=== PATIENT | female | born 1980 | race Caucasian/White ===

== ENCOUNTER → 2017-10-20 15:17 | Outpatient (CLI) | payer OTHER, MEDICAID, SELFPAY ==
[2017-10-20 16:12] LABS: Add Manual Diff / Slide Review NO; Basophils Percent Auto 0.5 % (0-2); Eosinophils Percent Auto 3.8 % (2-4); Lymphocytes Percent Auto 31.1 % (25-40); Mean Corpuscular HGB Conc 34.2 % (30-36); Mean Corpuscular Hemoglobin 28.3 PG (26-34); Mean Corpuscular Volume 82.9 fL (80-100); Monocytes Percent Auto 6.5 % (3-14); Neutrophils Absolute Auto 4100 /uL (3000-5900); Neutrophils Percent Auto 58.1 % (50-75); Platelet Count 239 X10^3/uL (150-400); Red Blood Cell Count 4.95 X10^6/uL (4.0-5.2); Red Cell Distribution Width 13.6 % (11.6-14.8)
[2017-10-20 16:35] LABS: Alanine Aminotransferase 26 IU/L (9-52); Albumin 4.2 g/dL (3.5-5.0); Albumin Globulin Ratio 1.4 (1.0-2.8); Alkaline Phosphatase 65 U/L (38-126); Aspartate Aminotransferase 15 IU/L (14-36); Bilirubin Total 0.4 mg/dL (0.2-1.3); Calcium 9.9 mg/dL (8.4-10.2); Estimated Glomerular Filt Rate > 60.0 mL/min (>60); Glucose 88 mg/dL (70-100); HEMOLYSIS < 15 (0-50); Lipase 99 U/L (23-300); Potassium 4.3 mmol/L (3.4-5.1); Sodium 145 mmol/L (137-145); Total Protein 7.2 g/dL (6.3-8.2)
--- NOTE | 2017-10-20 17:58 | HP_ITS ---
DATE OF SERVICE: 10/20/2017 CHIEF COMPLAINT: Right upper quadrant abdominal pain and loose watery stool. HISTORY OF PRESENT ILLNESS: A 37-year-old female who presented recently to the emergency department in 06/2017 with severe right upper quadrant abdominal pain of acute onset. She was in her usual state of health at that time at work when she experienced significant pain that was debilitating. Pain was described as sharp and unrelenting. Pain radiated to the right shoulder region. She had no chest pain or shortness of breath otherwise. No abdominal pain elsewhere. No fever or chills. She did have some nausea and vomiting. Evaluation included CT scan as well as abdominal ultrasound which failed to show any significant pathology other than perhaps some mild inflammation around the gallbladder. Nevertheless, there was no biliary dilatation and no gallstones. No free fluid. She has continued to experience intermittent episodes of epigastric pain and right upper quadrant abdominal pain but not quite as intense as the initial event. She notes no exacerbating activities or food. She has otherwise been tolerating a diet relatively well. She has actually lost 10 pounds because she has been following very bland diet over the last month or so related to the watery diarrhea. She denies any melena, hematochezia, or bright red blood per rectum. Her major complaint, however, is the pain that occurs intermittently. She denies any jaundice, acholic stools, or dark brown urine. PAST MEDICAL HISTORY: 1. Morbid obesity. 2. Gastroesophageal reflux disease (GERD) disease. She denies any other chronic major medical illnesses. PAST SURGICAL HISTORY: Emergency section, 12/2015. Postoperative course was complicated by significant wound infections requiring multiple debridements and wound care with eventual healing by secondary intention. She has a resultant incisional hernia. ALLERGIES: 1. PENICILLIN. 2. AMOXICILLIN. 3. MOTRIN. 4. VICODIN WHICH CAUSES NAUSEA. MEDICATIONS: 1. Prilosec 20 mg p.o. q.day. 2. Imodium 1 tablet p.o. q.day p.r.n. She takes his medication approximately 3 times per week. 3. Aleve 1 tablet p.o. p.r.n. She takes this approximately twice per week. SOCIAL HISTORY: Patient is accompanied by her relative. She smokes a half-pack of cigarettes per day and has done so for 25 years. She drinks occasional bare alcoholic beverage. She resides with her mother and boyfriend. She is employed at [employer]. She did have a colonoscopy in 2015 for unrelated gastrointestinal symptoms. FAMILY HISTORY: Significant for heart disease and hypertension as well as gallstones through her grandparents. Her maternal grandfather was diabetic. There is a history of breast cancer and ovarian cancer in her relatives. REVIEW OF SYSTEMS: CONSTITUTIONAL: No fevers, chills, or night sweats. She has had 10-pound weight loss dietary changes as above. SKIN: No itching or lesions. No jaundice. ENT: No dysphagia or hoarseness. RESPIRATORY: No cough or sputum. CARDIOVASCULAR: No chest pain, shortness of breath, or dyspnea. GI: As above in HPI. : No hesitancy, frequency, dysuria, or hematuria. MUSCULOSKELETAL: No joint pain or swelling. NEUROLOGIC: NO dizziness or weakness. PSYCHIATRIC: No history of anxiety or depression. ENDOCRINE: No history of thyroid issues or diabetes. HEMATOLOGIC: Denies easy bruising or spontaneous bleeding. BREASTS: No masses on self-examination. 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 Her most recent menstrual cycle was 10/06/2017. She began menstruating at age 13. PHYSICAL EXAMINATION: GENERAL: Patient is a well-nourished well-developed morbidly obese female in no acute distress. Alert and oriented x3. VITAL SIGNS: Height 5 feet 5 inches. Weight 344 pounds. Temperature 98, heart rate 86, blood pressure 120/88, room air saturation 98%. HEENT: She is normocephalic and atraumatic. Sclerae are nonicteric. NECK: Supple without lymphadenopathy. CHEST: Clear to auscultation bilaterally with a regular rate and rhythm. No wheezes or crackles. No murmurs, gallops, or rubs. No flank tenderness. ABDOMEN: Obese but soft and nondistended. I appreciate no obvious masses, although the examination is limited by her body habitus. She is mildly tender in the right upper quadrant region but without guarding or rebound. No Mayberry sign. No obvious hepatomegaly. EXTREMITIES: Show no clubbing or cyanosis but she has significant obesity of the lower extremities. LABORATORY DATA/X-RAYS: She has no recent laboratory studies for review. I have reviewed her CT scan of her at the abdomen and pelvis as well as the abdominal ultrasound from 06/2017. She is also had a recent CCK/HIDA scan within the last several weeks which I have reviewed also. Findings are essentially as above. The CCK/HIDA scan demonstrated biliary ejection fraction of only 9%. She reports that the CCK injection reproduced her pain. IMPRESSION: A 37-year-old morbidly obese female with symptomatic biliary dyskinesia. I do not believe this is related to her diarrhea but there is a small possibility of such if she does indeed have significant chronic gallbladder inflammation. PLAN: I discussed my impression and findings with the patient and her mother in detail. I recommend laparoscopic cholecystectomy. The technical details of that operation were discussed. Risks including, but not limited to, anesthesia, bleeding, infection, pain, scars, need to convert to open procedure, need for drains, liver injury, gastric injury, small-bowel injury, duodenal injury, colon injury, bile duct injury, major vascular injury, need for major abdominal surgery, and all attendant risks of major surgery were explained at length. We also discussed the possibility that cholecystectomy would not resolve her pain issues and other current symptoms. She may require endoscopic evaluation at that time if there is evidence of sphincter of Oddi dysfunction. I also explained that the diarrhea may not resolve. In fact, she may have post cholecystectomy significant diarrhea. We discussed this in some detail as well. Anticipated healing and recovery times were reviewed. All questions were answered to her satisfaction, and she voiced understanding. Preoperative laboratory studies including CBC, lipase, and complete metabolic panel were ordered. Consent was placed on the chart. We will proceed as above. Merly Gasca - /zeny/ab doc#: [id number]/job#: [id number] dd: 10/20/2017 15:19:00 dt: 10/20/2017 17:24:00 DICTATING /COPIES TO: Jorge Balderas MD; Jw Cardona MD COPIES MNE: JASON GIFFORD
== END ==
PROVIDERS: Family Provider Internal Medicine; PCP Internal Medicine; Visit Provider Surgery
DX: R10.11 Right upper quadrant pain (principal)
CPT/HCPCS: 36415; 80053; 83690; 85025

== ENCOUNTER 2017-11-09 09:10 | Day surgery (SDC) | payer OTHER, MEDICAID, SELFPAY ==
[2017-11-03 09:29] VITALS: BMI 57.3
[2017-11-09] VITALS (18 sets, daily range): BP systolic 102–127; BP diastolic 58–79; PULSE 60–81; RESP 12–18; TEMP 36–36.9; O2SAT 95–100; BMI 57.3
--- NOTE | 2017-11-09 | PATH_ITS ---
[facility] Accession Number: [id number] . 01 Material submitted: . GALLBLADDER AND CONTENTS . 02 Diagnosis: Gallbladder and Contents, Cholecystectomy: Mild chronic cholecystitis. Negative for neoplasm. [facility]/11/12/2017 . 02 Electronically signed: . Venkata Chua MD, PhD, Pathologist NPI- [id number] . 01 Gross description: . Received in formalin, labeled gallbladder and contents, is an intact gallbladder (length-7.6 cm, diameter-3.3 cm) with green smooth and shiny serosa and a patent cystic duct. No lymph nodes are identified. The lumen contains dark green watery bile. No calculi are present. The mucosa is dark green smooth and flat. The wall is up to 0.1 cm thick. No nodules, masses or lesions are identified. Section code: (A1) cystic duct resection margin and two serial sections from the body; (A2) two longitudinal sections from the fundus. ([id number]) . /[facility] . 02 Pathologist provided ICD-10: K82.8, K81.1 . 02 CPT . 843756 Performed at: 01 [facility] [address] [facility], [place], [place] [id number] MD Elgin Saleh MD Phone: [phone] Performed at: [facility] [address] [place], [place] [id number] MD Terell Schaefer MD Phone: [phone]
--- NOTE | 2017-11-09 09:55 | PM.PREOP ---
Pre-operative Note Interval Note Pre-op Check: History & Physical Reviewed by Physician and Exam Performed H&P completed within 30 days and has changed as indicated here:: Patient seen and examined today. History and physical examination as documented on October 20, 2017 remains unchanged. Proceed with laparoscopic cholecystectomy today as planned.
[2017-11-09] MEDS: LACTATED RINGERS 1,000 ML 100 ML IV ×2 (10:08→12:21)
[2017-11-09] MEDS: MIDAZOLAM 2 MG/2 ML VIAL IV (10:13)
--- NOTE | 2017-11-09 10:31 | SUR.PREOP ---
pt was given versed and placed on a pulse ox monitor to monitor pulse ox and heart rate.
[2017-11-09] MEDS: CLINDAMYCIN 900 MG/50 ML PIGGYBACK 50 MG IV (10:47)
--- NOTE | 2017-11-09 11:16 | SUR.OPER ---
Supine on padded OR bed, head on pillow, arms secured on padded arm boards at <90 degrees abduction, legs uncrossed, safety belt at thigh, tape over blanket over lower legs. Foot board. Additional tape over the towels on lower abdomen.
[2017-11-09] MEDS: BUPIVACAINE 0.25% (PF) 30 ML VIAL INJ (11:36)
[2017-11-09] MEDS: LIDOCAINE 1% W/EPI INJ 20 ML INJ (11:37)
--- NOTE | 2017-11-09 12:45 | PM.OP.1 ---
Operative Date/Time/Diagnoses - Date of procedure: 11/09/17 Time of procedure: 12:45 Pre-op diagnosis: Biliary dyskinesia Post-op diagnosis: same Procedure & Clinicians Procedure: Laparoscopic cholecystectomy Same procedure as scheduled: Yes Indications: 37-year-old morbidly obese female who presented with recurrent intractable right upper quadrant abdominal pain. Examination and evaluation were consistent with biliary colic secondary to dyskinesia as confirmed by HIDA scan. Laparoscopic cholecystectomy was recommended. Surgeon: Jorge Balderas Click Yes if Unassisted: Yes Anesthesia Type: General Operative Notes Findings: 1. Moderately enlarged fatty infiltrated liver with some superficial fibrosis 2. Copious adhesions in the lower midline abdomen and pelvis consistent with prior section 3. Chronic adhesions between the omentum and infundibulum of the gallbladder consistent with possible chronic cholecystitis 4. Otherwise grossly normal gallbladder without obvious palpable stones 5. Grossly normal colon, stomach, and small bowel within the limits of laparoscopic visualization Closure Type: primary Specimen(s): other (Gallbladder) Implants & Drains: None Estimated Blood Loss (mL): 25 Blood products transfused: none Procedure in detail: After obtaining informed consent the patient was brought to the operating room placed supine on the table. After satisfactory induction of anesthesia all pressure points were padded appropriately. Footboard was placed on the table for support. Abdomen was prepped and draped in usual sterile fashion. A SCOAP time-out was performed per standard protocol. A 1: 1 mixture of 1% lidocaine with 1 100,000 epinephrine and 0.25% plain Marcaine was injected in the skin and subcutaneous tissue in the supraumbilical midline several inches above the superior aspect of the umbilicus given the patient's body habitus. Local anesthesia was injected for postoperative analgesia. Vertical midline incision was created for distance of approximately 3 cm at the anesthetized skin using a 11. Scalpel blade. Blunt dissection and retraction exposed the rectus fascia which was divided in the midline with a 11. Scalpel blade. Fascial edges was secured with Ray clamps and elevated into the operative field. Two individual 0 Vicryl sutures were then placed superiorly and inferiorly to secure the fascia. Underlying peritoneum was secured between Althea clamps and divided sharply between clamps using Metzenbaum scissors. Under direct visualization a blunt 12 mm Castro trocar was inserted into the abdomen and a carbon dioxide pneumoperitoneum was created. Abdomen was visually explored with a 30 degree 5 mm laparoscopic. Findings are as above. Patient was placed in reverse Trendelenburg position and appropriate position was chosen for placement of a 5 mm epigastric trocar. Area was again anesthetized with local anesthesia and a small skin incision was created with a 11 scalpel blade followed by insertion of the 5 mm trocar. In a similar fashion to individual 5 mm trocars were placed in the right lateral abdomen. Fundus of the gallbladder was secured with a ratcheted grasper and retracted superiorly and medially over the liver edge. However, the patient had extremely enlarged fatty infiltrated liver which made retraction difficult. A Gray grasper was then inserted and the infundibulum of the gallbladder was secured and retracted inferiorly and laterally after blunt dissection of the omental adhesions liberated the gallbladder. Meticulous dissection was then performed in the triangle of Calot using a combination of the Kittner dissector and Maryland dissector. Cystic duct was readily identified and skeletonized of overlying connective tissue. Critical view of the liver bed in the avascular window was identified. Three clips were placed proximally on the duct and 1 at the junction with the gallbladder. Duct was then divided using laparoscopic scissors. Further dissection revealed the cystic artery posterior to the duct. An anterior and posterior branch were identified and taken down between hemoclips followed by scissors to sharply divide the structure. Monopolar cautery was then used to remove the gallbladder from the hepatic bed. Specimen was placed in an endo-pouch and retrieved through the 12 mm trocar site. Specimen was sent for permanent section. Right upper quadrant and liver bed were then irrigated with copious amount of sterile saline solution which was noted to return clear. Hemostasis was verified. Previously placed clips were meticulously examined and noted to be in good position. No evidence of hemorrhage or bile leak. Patient was returned to supine position in the right upper quadrant again irrigated. Once again the irrigant returned clear. Instruments and trocars were removed under direct laparoscopic visualization. Hemostasis was verified. Carbon dioxide was evacuated. Fascia at the 12 mm trocar site was then closed with the previously placed 0 Vicryl suture in addition to 3rd 0 Vicryl suture to completely close the defect. Skin at all 4 incisions was then closed in a subcuticular running fashion with 4 0 Monocryl suture. Dermal adhesive was applied to the skin. Anesthesia was reversed and the patient extubated in the operating room. She was taken recovery in stable condition. Complications: none Condition: stable Disposition: PACU Plan for aftercare: 1. Discharge to home 2. Follow up in surgery Clinic in 2 weeks
[2017-11-09] MEDS: fentaNYL 100 MCG/2 ML INJ 50 MCG IV ×2 (12:47→12:52)
[2017-11-09] MEDS: HYDROMORPHONE 0.5 MG INJ 0.25 MG IV ×4 (13:02→13:21)
[2017-11-09] MEDS: OXYCODONE/ACETAMINOPHEN 5/325 TABLET 1 TAB PO ×2 (13:35→13:50)
== END 2017-11-09 14:56 | disposition home or self-care (01) ==
PROVIDERS: Family Provider Internal Medicine; PCP Internal Medicine; Visit Provider Surgery
PROC: 0FT44ZZ Resection of Gallbladder, Percutaneous Endoscopic Approach (ICD-10-PCS; CPT 47562; principal; 2017-11-09 10:15)
DX: K82.8 Other specified diseases of gallbladder (principal); E66.9 Obesity, unspecified; K21.9 Gastro-esophageal reflux disease without esophagitis; F17.210 Nicotine dependence, cigarettes, uncomplicated; R19.7 Diarrhea, unspecified; K81.1 Chronic cholecystitis
CPT/HCPCS: 47562; J0330; J1100; J1170; J2250; J2405; J2704; J3010

== ENCOUNTER 2017-12-21 08:38 | Emergency (ER) | payer OTHER, MEDICAID, SELFPAY ==
[2017-12-21 08:57] VITALS: BP 117/60; PULSE 81; RESP 17; TEMP 37.2; O2SAT 97
--- NOTE | 2017-12-21 09:10 | ED_ITS ---
HPI - Ear Problem General Chief complaint: Ear Stated complaint: SORE THROAT, NAUSEA, VOMITING, EAR PAIN, FEVER Time Seen by Provider: 12/21/17 08:44 Source: patient and RN notes reviewed Mode of arrival: ambulatory Limitations: no limitations History of Present Illness HPI Narrative: Patient is a 37-year-old female who presents with a variety of complaints. A she has been having bilateral ear pain sore throat and significant diarrhea for the last 3 days. She says that she was chilled in her apartment yesterday and this 80 agrees inside. She is currently afebrile her last Tylenol was yesterday. She has no real abdominal pain she states occasionally feels nauseated but no vomiting. She is more concerned today about her ears. She did have a cholecystectomy about 1 month ago she has had most stool however now it is liquid. She denies any recent antibiotics or travel. No one else is sick. MD Complaint: ear pain and other (Diarrhea) Related Data Home Medications Medication Instructions Recorded Confirmed alprazolam 0.25 mg PO Q6HP PRN #0 12/09/16 11/22/17 loperamide [Imodium A-D] 2 mg PO BID PRN 11/03/17 11/22/17 naproxen sodium [Aleve] 2 tab PO DAILY PRN 11/03/17 11/22/17 omeprazole 20 mg PO DAILY 11/03/17 11/22/17 ondansetron [Zofran ODT] 4 mg SUBLINGUAL Q6HP PRN 11/09/17 11/22/17 Previous Rx's Medication Instructions Recorded albuterol sulfate [Ventolin HFA] 0 puff INH Q4HP PRN #1 ea 07/09/16 azithromycin [Zithromax] 250 mg PO Q DAY #6 tab 07/12/16 prednisone 40 mg PO Q DAY 5 Days #0 tab 07/12/16 meclizine 25 mg PO Q6HP PRN #30 tab 12/18/16 oxycodone 5 mg PO Q3H PRN #40 tab 11/09/17 ondansetron 4 mg PO Q6-8H PRN #10 tab 12/21/17 Allergies Allergy/AdvReac Type Severity Reaction Status Date / Time Penicillins [PENICILLINS] Allergy Intermediate HIVES, Verified 11/22/17 13:36 difficulty breathing amoxicillin [AMOXICILLIN] Allergy Mild HIVES, Verified 11/22/17 13:36 difficulty breathing ibuprofen [IBUPROFEN] Allergy Mild STOMACH Verified 11/22/17 13:36 DISTRESS acetaminophen [From Vicodin] AdvReac Mild Nausea Verified 11/22/17 13:36 hydrocodone [From Vicodin] AdvReac Mild Nausea Verified 11/22/17 13:36 Cillins Allergy Hives, Uncoded 11/22/17 13:36 difficulty breathing Review of Systems Review of Systems All systems reviewed & are unremarkable except as noted in HPI and below Constitutional Reports body ache(s), Reports chills, Reports fatigue and Reports fever(s) Eyes Reports as per HPI ENT Ears, Nose, Mouth, and Throat: Reports as per HPI Cardiovascular Denies chest pain, Denies irregular heart rhythm, Denies lightheadedness, Denies palpitations, Denies dyspnea, Denies dyspnea on exertion and Denies orthopnea Respiratory Denies cough, Denies dyspnea, Denies dyspnea on exertion and Denies wheezing Gastrointestinal Gastrointestinal: Reports as per HPI, Denies abdominal pain, Reports diarrhea, Reports loose stools, Reports nausea and Denies vomiting Musculoskeletal Denies back pain, Denies muscle weakness, Denies numbness and Denies tingling Neurologic Denies numbness and Denies tingling Endocrine Reports fatigue and Denies palpitations Allergic/Immunologic Denies wheezing [facility] Medical History Depression (Acute) GERD (gastroesophageal reflux disease) (Acute) Visit for wound care (Acute) Surgical History History of cholecystectomy (Acute) Status post delivery Social History household members: significant other and family Smoking Status: Current every day smoker alcohol intake: current Exam Initial Vital Signs Initial Vital Signs: Vital Signs Temperature 98.9 F 12/21/17 08:57 Pulse Rate 81 12/21/17 08:57 Respiratory Rate 17 12/21/17 08:57 Blood Pressure 117/60 12/21/17 08:57 Pulse Oximetry 97 12/21/17 08:57 GENERAL: Alert obese young female and in no acute distress. HEENT: Head atraumatic,EOMI, pupils reactive EARS: Tympanic membranes visualized, no erythema or bulging, no hemotympanum PHARYNX: No erythema, no tonsillar exudate, no cervical lymphadenopathy CARDIOVASCULAR: Regular rate and rhythm without murmurs, rubs or gallops. RESPIRATORY: Breath sounds equal bilaterally, no wheezes rales or rhonchi. ABDOMEN: Soft, obese, nontender. Normoactive bowel sounds all 4 quadrants. No guarding or rebound. EXTREMITIES: Normal range of motion, no clubbing or edema. Neurovascularly intact NEUROLOGICAL: Alert and oriented x4.Normal gait and speech. Cranial nerves II through XII grossly intact. SKIN: Warm, dry, no laceration, no petechiae, no rashes or lesions. Course Vital Signs - 8 hr 12/21/17 08:57 Temperature 98.9 F Pulse Rate 81 Respiratory Rate 17 Blood Pressure 117/60 Pulse Oximetry 97 Medical Decision Making MDM Narrative Medical decision making narrative: Patient appears nontoxic. She is not tachycardic or hypotensive. She is alert and oriented and seems well. At this time recommend oral rehydration likely has a gastroenteritis with 3 days diarrhea. Other symptoms may be viral. Discharge Plan Departure Patient Disposition: Home, Self-Care Clinical Impression: Gastroenteritis, Acute viral syndrome Discharge Date/Time: 12/21/17 09:25 Interventions: ED Discharge Assessment Last Done: 12/21/17 09:26 Instructions: DI for Viral Gastroenteritis -- Adult Activity Restrictions/Additional Instructions: *You have been diagnosed with gastroenteritis *What to do: No need for antibiotics at this time, stay hydrated with clear liquids such as Gatorade, broth, Jell-Oetc. *Continue to take medications as directed -Zofran 1 tablet every 6-8 hours if needed for nausea or vomiting *Follow up with your primary care provider in 2-3 days *Return to ER if you should have increase or worsening diarrhea and/or vomiting , abdominal pain, fever more than 100.4? F or any new, worsening or concerning symptoms Prescriptions: New ondansetron 4 mg tablet,disintegrating 4 mg PO Q6-8H PRN (Reason: nausea and vomiting) Qty: 10 RF: 0 No Action albuterol sulfate [Ventolin HFA] 90 MCG/PUFF HFA aerosol inhaler INH Q4HP PRNQty: 1 RF: 0 azithromycin [Zithromax] 250 MG tablet 250 mg PO Q DAY Qty: 6 RF: 0 prednisone 20 MG tablet 40 mg PO Q DAY 5 Days Qty: 0 RF: 0 alprazolam 0.25 MG tablet 0.25 mg PO Q6HP PRN (Reason: Agitation) Qty: 0 RF: 0 meclizine 25 MG tablet 25 mg PO Q6HP PRNQty: 30 RF: 0 loperamide [Imodium A-D] 2 mg Capsule 2 mg PO BID PRN (Reason: Diarrhea) RF: 0 omeprazole 20 mg Capsule,Delayed Release(Dr/Ec) 20 mg PO DAILY RF: 0 naproxen sodium [Aleve] 220 mg Capsule 2 tab PO DAILY PRN (Reason: pain) RF: 0 ondansetron [Zofran ODT] 4 MG tablet,disintegrating 4 mg Sublingual Q6HP PRN (Reason: Abdominal Distention) RF: 0 oxycodone 5 mg tablet 5 mg PO Q3H PRN (Reason: pain) Qty: 40 RF: 0 Referrals: Jw Cardona MD [Primary Care Provider] - Stand Alone Forms: Work/School Restrictions
== END 2017-12-21 09:25 | disposition home or self-care (01) ==
PROVIDERS: Emergency Provider Emergency Medicine; Family Provider Internal Medicine; PCP Internal Medicine
DX: K52.9 Noninfective gastroenteritis and colitis, unspecified (principal); B34.9 Viral infection, unspecified
CPT/HCPCS: 99282

== ENCOUNTER 2018-01-08 09:04 | Emergency (ER) | payer OTHER, MEDICAID, SELFPAY ==
[2018-01-08 09:14] VITALS: BP 130/88; PULSE 81; RESP 14; TEMP 36.4; O2SAT 95; BMI 56.5
[2018-01-08] MEDS: KETOROLAC 60 MG/2 ML VIAL 30 MG IM (09:41)
[2018-01-08] MEDS: ONDANSETRON 4 MG ODT PO (09:41)
[2018-01-08] MEDS: HALOPERIDOL 5 MG/ML VIAL 2 MG IV (11:00)
[2018-01-08] MEDS: SODIUM CHLORIDE 0.9% 1,000 ML 1000 ML IV (11:00)
[2018-01-08] MEDS: diphenhydrAMINE 50 MG/ML VIAL 25 MG IV (11:00)
[2018-01-08] MEDS: BENZTROPINE 2 MG/2 ML AMPUL 1 MG IV (11:35)
[2018-01-08] MEDS: ACETAMINOPHEN 325 MG TABLET 975 MG PO (11:35)
[2018-01-08 12:00] VITALS: BP 131/64; PULSE 77; RESP 15; O2SAT 100
--- NOTE | 2018-01-08 12:17 | ED_ITS ---
HPI - Headache General Chief Complaint: Headache Stated Complaint: MIGRAINE Time Seen by Provider: 01/08/18 09:20 History of Present Illness HPI Narrative: HPI 37-year-old obese female migraineur presents for evaluation of a gradual onset 3 days long waxing waning headache consistent with her typical migraines that is been refractory to naproxen. * Denies changes in vision or hearing, fevers, neck stiffness, rashes, neck pain , temporal pain, jaw pain with chewing, dental pain, minor neck trauma, chiropractic manipulation, or head trauma. * Denies anticoagulation or hypercoaguable history. * No family members with similar symptoms. Unable to identify any higher risk exposures to possible carbon monoxide. * No OCP usage, denies current or in the last 3 months. M/S/F/SocHx notable for: please see HPI; remainder reviewed with patient and in chart. ROS: Negative constitutional, eye, cardiovascular, pulmonary, GI, , MSK, skin , neurologic, psychiatric, endocrine unless noted in the HPI. Exam Gen: Pleasant, non-toxic appearing, resting comfortably. HEENT: NC, AT, TMs clear bilaterally without effusions, erythema, or lesions, preauricular, pinna, and external canal skin without lesions. Dentition intact without visible caries. No frontal or maxillary sinus TTP. Temples without TTP bilaterally, equal 2+ temporal artery pulses. No paraspinal posterior neck pain. Resp: CTAB Card: RRR GI: NT/ND : Deferred MSK: No visible deformities, strength and tone WNL. Skin: Normal color with no visible lesions. Neuro: Gen AO x 3, no facial asymmetry, no gaze preference, no slurring of speech. CN II-III: pupils equal and reactive (4->2mm bilaterally); III, IV, : EOMI, V1-V3: sensation to touch bilaterally intact; VII: no facial asymmetry ( frown / smile); VIII: no nystagmus; X: phonation intact, uvula midline; XI: trapezius 5/5 bilaterally, XII: tongue midline. Psych: Mood and affect appropriate. MDM Previous chart, nursing note, and vitals reviewed. A: 37-year-old obese female migraineur presents for evaluation of a gradual onset 3 days long waxing waning headache consistent with her typical migraines that is been refractory to naproxen. DDx: migraine / tension headache, cluster headache, sentinel bleed/SAH, infection (CARD TABLE ATTENDANT vs HUNT secondary to non-CARD TABLE ATTENDANT focal infection), tumor/mass effect, hypertensive encephalopathy, glaucoma or iritis, idiopathic intracranial hypertension, cavernous sinus thrombosis, temporal arteritis. Evaluation: * Migraine / tension headache - suspect a migraine given the consistency of symptoms with prior headaches and the relative exclusion of the remainder of the differential. * Cluster - doubt cluster headache given the absence of unilateral symptoms, eye watering, swelling, or nasal congestion. * Braddock bleed/SAH - Doubt given gradual onset. Given similarity of this headache with prior headaches will manage conservatively without imaging. * Infection - Given lack of rash, meningismus, or fever; doubt meningitis. Similarly the history and exam are without evidence of acute otitis media, sinusitis, dental abscesses or clinically significant dental caries. * Mass - Consider a tumor or mass to be unlikely given the lack of a gradual onset, positional component, or neurological deficits. * Hypertensive encephalopathy - BP within the brain's autoregulatory zone. * Glaucoma or iritis - As the patient is without reported vision changes, eye pain, and an occular exam without increases in pain on pupillary constriction further evaluation was not pursued. * Idiopathic Intracranial Hypertension - unlikely given the lack of visual symptoms, short duration of symptoms, lack of worsening with valsalva, or more prominent morning symptoms. * Thrombosis - given the lack of identifiable risk factors (preceding facial infection, fever, and hypercoagulability) as well as an absence of deficits on exam doubt both cavernous and venous sinus thrombosis. * Temporal Arteritis - given lack of temporally localized headache, temporal tenderness or decreased temporal artery pulse, absent history of jaw claudication or vision changes; doubt. ED Course: patient requested Toradol and Zofran, this was given, no significant improvement. Migraine cocktail (2 mg haloperidol, 1 L normal saline, 975 mg acetaminophen, 25 mg diphenhydramine) ordered. Patient with mild dystonic reaction, resolved after Cogentin. Headache resolved. Discharge with PCP follow- up recommended. Patient was notified of their elevated blood pressure and recommended to follow up with their primary care physician. As the patient is without evidence of acute end organ dysfunction no further emergent evaluation is indicated as per the 2013 [facility] clinical policy. Impression: Headache (please reference below for remainder of encounter information) Related Data Home Medications Medication Instructions Recorded Confirmed naproxen sodium [Aleve] 2 tab PO DAILY PRN 11/03/17 01/08/18 omeprazole 20 mg PO DAILY 11/03/17 01/08/18 Previous Rx's Medication Instructions Recorded ondansetron 4 mg PO Q6-8H PRN #10 tab 12/21/17 Allergies Allergy/AdvReac Type Severity Reaction Status Date / Time Penicillins [PENICILLINS] Allergy Intermediate HIVES, Verified 01/08/18 09:18 difficulty breathing amoxicillin [AMOXICILLIN] Allergy Mild HIVES, Verified 01/08/18 09:18 difficulty breathing hydrocodone [From Vicodin] AdvReac Mild Nausea Verified 01/08/18 09:18 PFSH Medical History Depression (Acute) GERD (gastroesophageal reflux disease) (Acute) Visit for wound care (Acute) Surgical History History of cholecystectomy (Acute) Status post delivery Social History household members: significant other and family Smoking Status: Current every day smoker alcohol intake: current Exam Initial Vital Signs Initial Vital Signs: Vital Signs Temperature 97.6 F 01/08/18 09:14 Pulse Rate 81 01/08/18 09:14 Respiratory Rate 14 01/08/18 09:14 Blood Pressure 130/88 H 01/08/18 09:14 Pulse Oximetry 95 01/08/18 09:14 Course Orders Ordered: Benztropine Mesylate (Cogentin) 1 mg IV NOW PRN PRN Reason: Dystonia Discontinued Medications Acetaminophen (Tylenol) 975 mg PO NOW ONE Stop: 01/08/18 10:22 Last Admin: 01/08/18 11:35 Dose: 975 mg Benztropine Mesylate (Cogentin) 1 mg IV NOW ONE Stop: 01/08/18 11:27 Last Admin: 01/08/18 11:35 Dose: 1 mg Diphenhydramine HCl (Benadryl) 25 mg IV NOW ONE Stop: 01/08/18 10:22 Last Admin: 01/08/18 11:00 Dose: 25 mg Haloperidol (Haldol) 2 mg IV NOW ONE Stop: 01/08/18 10:22 Last Admin: 01/08/18 11:00 Dose: 2 mg Sodium Chloride (Normal Saline 0.9%) 1,000 mls @ 1,000 mls/hr IV BOLUS ONE Stop: 01/08/18 11:20 Last Infusion: 01/08/18 11:57 Dose: 0 mls/hr Admin: 01/08/18 11:00 Dose: 1,000 mls/hr Ketorolac Tromethamine (Toradol) 30 mg IM NOW ONE Stop: 01/08/18 09:28 Last Admin: 01/08/18 09:41 Dose: 30 mg Ondansetron HCl (Zofran Odt) 4 mg PO NOW ONE Stop: 01/08/18 09:28 Last Admin: 01/08/18 09:41 Dose: 4 mg Vital Signs - 8 hr 01/08/18 09:14 01/08/18 12:00 Temperature 97.6 F Pulse Rate 81 77 Respiratory Rate 14 15 Blood Pressure 130/88 H Blood Pressure [Right Arm] 131/64 H Pulse Oximetry 95 100 Discharge Plan Departure Prescriptions: No Action omeprazole 20 mg Capsule,Delayed Release(Dr/Ec) 20 mg PO DAILY RF: 0 naproxen sodium [Aleve] 220 mg Capsule 2 tab PO DAILY PRN (Reason: pain) RF: 0 ondansetron 4 mg tablet,disintegrating 4 mg PO Q6-8H PRN (Reason: nausea and vomiting) Qty: 10 RF: 0
== END 2018-01-08 12:29 | disposition home or self-care (01) ==
PROVIDERS: Emergency Provider Emergency Medicine; PCP Internal Medicine
DX: R51 Headache (principal)
CPT/HCPCS: 36591; 81003; 81025; 96361; 96374; 96375; 99283; 99284; J0515; J1200; J1630; J1885

== ENCOUNTER 2018-01-09 00:08 | Emergency (ER) | payer OTHER, MEDICAID, SELFPAY ==
[2018-01-09 00:15] VITALS: BP 123/75; PULSE 92; RESP 18; TEMP 37.1; O2SAT 97; BMI 56.5
== END 2018-01-09 02:01 | disposition left against medical advice (07) ==
PROVIDERS: Emergency Provider Emergency Medicine; PCP Internal Medicine
DX: G43.909 Migraine, unspecified, not intractable, without status migrainosus (principal)
CPT/HCPCS: 99282

== ENCOUNTER → 2018-04-04 15:37 | Outpatient (CLI) | payer OTHER, MEDICAID, SELFPAY ==
[2018-04-04 17:02] LABS: HCG Quantitative /Beta subunit 308.83 mIU/mL
== END ==
PROVIDERS: PCP Internal Medicine; Visit Provider Internal Medicine
DX: Z32.00 Encounter for pregnancy test, result unknown (principal)
CPT/HCPCS: 36415; 84702

== ENCOUNTER 2018-04-11 12:03 | Emergency (ER) | payer OTHER, MEDICAID, SELFPAY ==
[2018-04-11 12:10] VITALS: BP 138/88; PULSE 84; RESP 14; TEMP 37.1; O2SAT 100
--- NOTE | 2018-04-11 13:14 | ED_ITS ---
HPI - Abdominal Pain <Anastasiia Craven PA-C - Last Filed: 04/11/18 20:23> General Chief Complaint: Abdominal Pain Stated Complaint: 6wks with right side abdominal pain Time Seen by Provider: 04/11/18 12:52 Source: patient Mode of arrival: ambulatory Limitations: no limitations History of Present Illness HPI narrative: This 37-year-old female who is 6 weeks comes in today due to worsening right pelvic pain. She states it feels like this is in her ? ovary?. 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 The latter required an emergency and multiple followup surgeries for infection. She states that she has not had any fever. She is not having vomiting. She has had some intermittent mild nausea with her but no acute changes, keeping down plenty of fluids and normal diet. Pain is localized, no exacerbating or alleviating features, but it will periodically gets significantly worse for a few minutes, then improve for a bit. She denies any other new symptoms such as chest pain, dyspnea, or swelling in the extremities Related Data Home Medications Medication Instructions Recorded Confirmed naproxen sodium [Aleve] 2 tab PO DAILY PRN 11/03/17 02/08/18 omeprazole 20 mg PO DAILY 11/03/17 02/08/18 Previous Rx's Medication Instructions Recorded nadolol 20 mg tablet 20 mg PO .COMPLEX #60 tab 01/18/18 ondansetron 4 mg disintegrating 4 mg PO Q6-8H PRN #10 tab 01/20/18 tablet acetaminophen 500 mg PO Q4-6H PRN #30 cap 04/11/18 Allergies Allergy/AdvReac Type Severity Reaction Status Date / Time Penicillins [PENICILLINS] Allergy Intermediate HIVES, Verified 02/08/18 13:03 difficulty breathing amoxicillin [AMOXICILLIN] Allergy Mild HIVES, Verified 02/08/18 13:03 difficulty breathing hydrocodone [From Vicodin] AdvReac Mild Nausea Verified 02/08/18 13:03 Review of Systems <Anastasiia Craven PA-C - Last Filed: 04/11/18 20:23> Review of Systems All systems reviewed & are unremarkable except as noted in HPI and below Exam <Anastasiia Craven PA-C - Last Filed: 04/11/18 20:23> Narrative Exam Narrative: GENERAL APPEARANCE: Patient resting comfortably, in no distress. HEENT: PERRL, EOMI, no scleral icterus, no nystagmus. Right TM is somewhat cloudy, there is a hair in the canal, left is dull but otherwise normal, normal oropharynx NECK: Supple LUNGS: Clear to auscultation bilaterally. HEART: Rate and rhythm regular, normal S1 and S2, no S3 or S4. ABDOMEN: Soft, obese, nondistended, bowel sounds present x 4 quadrants, no masses palpable, no hepatosplenomegaly. Localized right adnexal area tenderness without guarding or rebound EXTREMITIES: No edema, no calf tenderness DERMATOLOGIC: No jaundice or exanthem NEUROLOGIC: Alert and oriented with normal speech and coordination Initial Vital Signs Initial Vital Signs: Vital Signs Temperature 98.8 F 04/11/18 12:10 Pulse Rate 84 04/11/18 12:10 Respiratory Rate 14 04/11/18 12:10 Blood Pressure 138/88 04/11/18 12:10 Pulse Oximetry 100 04/11/18 12:10 <Amish Nesbitt DO - Last Filed: 04/14/18 08:11> Initial Vital Signs Initial Vital Signs: Vital Signs Temperature 98.8 F 04/11/18 12:10 Pulse Rate 84 04/11/18 12:10 Respiratory Rate 14 04/11/18 12:10 Blood Pressure 138/88 04/11/18 12:10 Pulse Oximetry 100 04/11/18 12:10 Course <Anastasiia Craven PA-C - Last Filed: 04/11/18 20:23> Additional Information: Patient is feeling significantly improved after acetaminophen, just ?nervous? due to her previous miscarriages. Reviewed that ultrasound shows dating is a little bit earlier than she thought, and appropriate for this stage of correlating with increase in her HCG. No evidence of ectopic . She is not spotting or having other new symptoms. She agrees to return if any new or acutely worsening symptoms, otherwise will call her bit sharpener to arrange follow-up and repeat ultrasound if needed Orders Ordered: Discontinued Medications Acetaminophen (Tylenol) 650 mg PO NOW ONE Stop: 04/11/18 13:29 Last Admin: 04/11/18 13:33 Dose: 650 mg Vital Signs - 8 hr 04/11/18 14:03 04/11/18 15:18 Pulse Rate 78 76 Respiratory Rate 12 Blood Pressure 118/72 Blood Pressure [Left Arm] 122/67 Pulse Oximetry 100 100 <Amish Nesbitt DO - Last Filed: 04/14/18 08:11> Orders Ordered: Discontinued Medications Acetaminophen (Tylenol) 650 mg PO NOW ONE Stop: 04/11/18 13:29 Last Admin: 04/11/18 13:33 Dose: 650 mg Vital Signs - 8 hr 04/11/18 14:03 04/11/18 15:18 Pulse Rate 78 76 Respiratory Rate 12 Blood Pressure 118/72 Blood Pressure [Left Arm] 122/67 Pulse Oximetry 100 100 MDM - Abdominal Pain <Anastasiia Craven PA-C - Last Filed: 04/11/18 20:23> Lab Data Result diagrams: 04/11/18 13:35 04/11/18 13:35 Lab Results 04/11/18 04/11/18 Range/Units 13:35 13:35 WBC 8.5 (4.5-11.0) X10^3/uL RBC 4.61 (4.0-5.2) X10^6/uL Hgb 13.3 (12.0-16.0) g/dL Hct 39.2 (36-46) % MCV 85.1 (80-100) fL MCH 28.8 (26-34) PG MCHC 33.9 (30-36) % RDW 13.6 (11.6-14.8) % Plt Count 246 (150-400) X10^3/uL Neut % (Auto) 65.9 (50-75) % Lymph % (Auto) 24.9 L (25-40) % [place] % (Auto) 6.5 (3-14) % Eos % (Auto) 2.2 (2-4) % Baso % (Auto) 0.5 (0-2) % Neut # (Auto) 5600 (5831-2827) /uL Sodium 139 (137-145) mmol/L Potassium 4.2 (3.4-5.1) mmol/L Chloride 101 (98-107) mmol/L Carbon Dioxide 28 (22-32) mmol/L BUN 9 (7-17) mg/dL Creatinine 0.60 (0.52-1.04) mg/dL Estimated GFR > 60.0 (>60) mL/min BUN/Creatinine Ratio 15.0 (6-22) Glucose 91 (70-100) mg/dL Calcium 8.9 (8.4-10.2) mg/dL Total Bilirubin 0.5 (0.2-1.3) mg/dL AST 22 (14-36) IU/L ALT 26 (9-52) IU/L Alkaline Phosphatase 59 (38-126) U/L Total Protein 7.0 (6.3-8.2) g/dL Albumin 4.1 (3.5-5.0) g/dL Globulin 2.9 (1.7-4.1) g/dL Albumin/Globulin Ratio 1.4 (1.0-2.8) HCG, Quant 5602.0 mIU/mL Point of care testing: Point of Care Testing Test Results Positive Urine Dip Bedside Urine Glucose Negative Bedside Urine Bilirubin - Negative Bedside Urine Ketone - Negative Urine Specific [place] 1.030 Bedside Urine Occult Blood - Negative Bedside Urine pH 6.0 Bedside Urine Protein +/- 15 Bedside Urine Urobilinogen - Negative Bedside Urine Nitrite - Negative Bedside Urine Leukocytes - Negative Esterase Imaging Data US pelvic: Radiologist's impression: [place] [address] Ultrasound Report Signed Patient: Merly Gasca [facility]#: [id number] : 1980Acct:[id number] Age/Sex: 37 / FDate of Service: 04/11/18 Loc: ED Accession Number: [id number] Procedure: US OB <= 14 weeks fetus Ordering Provider: Anastasiia Craven P.A-C PROCEDURE: US OB <= 14 WEEKS FETUS INDICATIONS: RIGHT ADNEXAL PAIN OUTSIDE/PRIOR DATING DATA: Last menstrual period (LMP): 02/26/18. LMP-based estimated date of delivery (HILARIO): 12/03/18. First dating scan (date and location): 04/11/18. Estimated date of delivery (HILARIO) from first dating scan: 12/07/18. TECHNIQUE: Real-time scanning was performed of the fetus and maternal pelvic organs, with image documentation. Endovaginal scanning was also performed to better visualize the fetus and maternal ovaries. COMPARISON: None. FINDINGS: A single intrauterine gestational sac is identified. However, a pole is not yet seen. No yolk sac is identified. The mean gestational sac diameter measures 9 mm, which correlates with an estimated gestational age of 5 weeks 5 days. No significant subchorionic hemorrhage is evident. Maternal organs: There is a 1.7 cm cystic structure identified involving the right ovary, likely representing a corpus luteum. The right ovary is otherwise unremarkable and demonstrates blood flow with a normal Doppler waveform. The left ovary is normal in size and is otherwise unremarkable with normal blood flow demonstrated to the maternal left ovary. Limited images through the kidneys demonstrate no hydronephrosis. IMPRESSION: 1. No definite source for the patient's right sided pain is identified. 2. Single intrauterine gestational sac at 5 weeks 5 days (HILARIO 12/07/18). A pole is not yet seen. Please consider followup imaging in 1 to 2 weeks. Dictated by: Med Alonso M.D. on 04/11/2018 at 13:27 Approved by: Med Alonso M.D. on 04/11/2018 at 13:31 <Amish Nesbitt DO - Last Filed: 04/14/18 08:11> Lab Data Lab Results 04/11/18 04/11/18 Range/Units 13:35 13:35 WBC 8.5 (4.5-11.0) X10^3/uL RBC 4.61 (4.0-5.2) X10^6/uL Hgb 13.3 (12.0-16.0) g/dL Hct 39.2 (36-46) % MCV 85.1 (80-100) fL MCH 28.8 (26-34) PG MCHC 33.9 (30-36) % RDW 13.6 (11.6-14.8) % Plt Count 246 (150-400) X10^3/uL Neut % (Auto) 65.9 (50-75) % Lymph % (Auto) 24.9 L (25-40) % [place] % (Auto) 6.5 (3-14) % Eos % (Auto) 2.2 (2-4) % Baso % (Auto) 0.5 (0-2) % Neut # (Auto) 5600 (5018-1647) /uL Sodium 139 (137-145) mmol/L Potassium 4.2 (3.4-5.1) mmol/L Chloride 101 (98-107) mmol/L Carbon Dioxide 28 (22-32) mmol/L BUN 9 (7-17) mg/dL Creatinine 0.60 (0.52-1.04) mg/dL Estimated GFR > 60.0 (>60) mL/min BUN/Creatinine Ratio 15.0 (6-22) Glucose 91 (70-100) mg/dL Calcium 8.9 (8.4-10.2) mg/dL Total Bilirubin 0.5 (0.2-1.3) mg/dL AST 22 (14-36) IU/L ALT 26 (9-52) IU/L Alkaline Phosphatase 59 (38-126) U/L Total Protein 7.0 (6.3-8.2) g/dL Albumin 4.1 (3.5-5.0) g/dL Globulin 2.9 (1.7-4.1) g/dL Albumin/Globulin Ratio 1.4 (1.0-2.8) HCG, Quant 5602.0 mIU/mL Point of care testing: Point of Care Testing Test Results Positive Urine Dip Bedside Urine Glucose Negative Bedside Urine Bilirubin - Negative Bedside Urine Ketone - Negative Urine Specific [place] 1.030 Bedside Urine Occult Blood - Negative Bedside Urine pH 6.0 Bedside Urine Protein +/- 15 Bedside Urine Urobilinogen - Negative Bedside Urine Nitrite - Negative Bedside Urine Leukocytes - Negative Esterase Discharge Plan Departure Patient Disposition: Home Clinical Impression: related pelvic pain in first trimester, antepartum Discharge Date/Time: 04/11/18 15:43 Interventions: ED Discharge Assessment Last Done: 04/11/18 15:20 Instructions: DI for Abdominal Pain -- Early Activity Restrictions/Additional Instructions: Please continue Tylenol as needed for pain for. Gentle stretching may help as well. Please return as we talked about if you have acutely worsening symptoms, or new symptoms such as fever, vomiting, or spotting. Otherwise, please call your bit sharpener today and let them know you were in the emergency room so that you can set up a follow-up visit, as it may be helpful to repeat an ultrasound in the next week or 2. Your appears to be a little bit earlier (in the 5 week range) than previously thought, lab work and ultrasound are on target for that today. Prescriptions: New acetaminophen 500 mg capsule 500 mg PO Q4-6H PRN (Reason: pain) Qty: 30 RF: 0 No Action ondansetron 4 mg tablet,disintegrating 4 mg PO Q6-8H PRN (Reason: nausea and vomiting) Qty: 10 RF: 0 omeprazole 20 mg Capsule,Delayed Release(Dr/Ec) 20 mg PO DAILY RF: 0 naproxen sodium [Aleve] 220 mg Capsule 2 tab PO DAILY PRN (Reason: pain) RF: 0 nadolol 20 mg tablet 20 mg PO .COMPLEX Qty: 60 RF: 1 Referrals: Jw Cardona MD [Primary Care Provider] - Elizabeth Clemons MD [Physician] - <Amish Nesbitt DO - Last Filed: 04/14/18 08:11> Cosign ED Attending Franca Attestation: I was immediately available in the department for consultation. Documentation has been reviewed. I agree with assessment and plan.
--- NOTE | 2018-04-11 13:26 | DI.US.S_ITS ---
PROCEDURE: US OB <= 14 WEEKS FETUS INDICATIONS: RIGHT ADNEXAL PAIN OUTSIDE/PRIOR DATING DATA: Last menstrual period (LMP): 02/26/18. LMP-based estimated date of delivery (HILARIO): 12/03/18. First dating scan (date and location): 04/11/18. Estimated date of delivery (HILARIO) from first dating scan: 12/07/18. TECHNIQUE: Real-time scanning was performed of the fetus and maternal pelvic organs, with image documentation. Endovaginal scanning was also performed to better visualize the fetus and maternal ovaries. COMPARISON: None. FINDINGS: A single intrauterine gestational sac is identified. However, a pole is not yet seen. No yolk sac is identified. The mean gestational sac diameter measures 9 mm, which correlates with an estimated gestational age of 5 weeks 5 days. No significant subchorionic hemorrhage is evident. Maternal organs: There is a 1.7 cm cystic structure identified involving the right ovary, likely representing a corpus luteum. The right ovary is otherwise unremarkable and demonstrates blood flow with a normal Doppler waveform. The left ovary is normal in size and is otherwise unremarkable with normal blood flow demonstrated to the maternal left ovary. Limited images through the kidneys demonstrate no hydronephrosis. IMPRESSION: 1. No definite source for the patient's right sided pain is identified. 2. Single intrauterine gestational sac at 5 weeks 5 days (HILARIO 12/07/18). A pole is not yet seen. Please consider followup imaging in 1 to 2 weeks. Dictated by: Med Alonso M.D. on 04/11/2018 at 13:27 Approved by: Med Alonso M.D. on 04/11/2018 at 13:31
[2018-04-11] MEDS: ACETAMINOPHEN 325 MG TABLET 650 MG PO (13:33)
[2018-04-11 13:41] LABS: Add Manual Diff / Slide Review NO; Basophils Percent Auto 0.5 % (0-2); Eosinophils Percent Auto 2.2 % (2-4); Hematocrit 39.2 % (36-46); Hemoglobin 13.3 g/dL (12.0-16.0); Lymphocytes Percent Auto 24.9 % (25-40); Mean Corpuscular HGB Conc 33.9 % (30-36); Mean Corpuscular Hemoglobin 28.8 PG (26-34); Mean Corpuscular Volume 85.1 fL (80-100); Monocytes Percent Auto 6.5 % (3-14); Neutrophils Absolute Auto 5600 /uL (3000-5900); Neutrophils Percent Auto 65.9 % (50-75); Platelet Count 246 X10^3/uL (150-400); Red Blood Cell Count 4.61 X10^6/uL (4.0-5.2); Red Cell Distribution Width 13.6 % (11.6-14.8); White Blood Cell Count 8.5 X10^3/uL (4.5-11.0)
[2018-04-11 13:53] LABS: Alanine Aminotransferase 26 IU/L (9-52); Albumin 4.1 g/dL (3.5-5.0); Albumin Globulin Ratio 1.4 (1.0-2.8); Alkaline Phosphatase 59 U/L (38-126); Aspartate Aminotransferase 22 IU/L (14-36); Bilirubin Total 0.5 mg/dL (0.2-1.3); Blood Urea Nitrogen 9 mg/dL (7-17); Calcium 8.9 mg/dL (8.4-10.2); Carbon Dioxide 28 mmol/L (22-32); Chloride 101 mmol/L (98-107); Estimated Glomerular Filt Rate > 60.0 mL/min (>60); Globulin 2.9 g/dL (1.7-4.1); Glucose 91 mg/dL (70-100); HEMOLYSIS < 15 (0-50); Potassium 4.2 mmol/L (3.4-5.1); Sodium 139 mmol/L (137-145)
[2018-04-11 14:03] VITALS: BP 122/67; PULSE 78; O2SAT 100
[2018-04-11 15:18] VITALS: BP 118/72; PULSE 76; RESP 12; O2SAT 100
== END 2018-04-11 15:43 | disposition home or self-care (01) ==
PROVIDERS: Emergency Provider Internal Medicine; PCP Internal Medicine
DX: O26.891 Other specified pregnancy related conditions, first trimester (principal); R10.9 Unspecified abdominal pain; Z3A.01 Less than 8 weeks gestation of pregnancy
CPT/HCPCS: 36415; 76801; 76817; 80053; 81003; 81025; 84702; 85025; 99283; 99284

== ENCOUNTER → 2018-04-18 13:03 | Outpatient (CLI) | payer OTHER, MEDICAID, SELFPAY ==
[2018-04-18 13:33] LABS: Add Manual Diff / Slide Review NO; Basophils Percent Auto 0.7 % (0-2); Eosinophils Percent Auto 1.8 % (2-4); Hematocrit 40.4 % (36-46); Hemoglobin 13.7 g/dL (12.0-16.0); Lymphocytes Percent Auto 22.5 % (25-40); Mean Corpuscular Hemoglobin 28.4 PG (26-34); Mean Corpuscular Volume 83.7 fL (80-100); Monocytes Percent Auto 5.8 % (3-14); Neutrophils Absolute Auto 6700 /uL (3000-5900); Neutrophils Percent Auto 69.2 % (50-75); Platelet Count 246 X10^3/uL (150-400); Red Blood Cell Count 4.82 X10^6/uL (4.0-5.2); Red Cell Distribution Width 13.3 % (11.6-14.8); White Blood Cell Count 9.7 X10^3/uL (4.5-11.0)
[2018-04-18 13:52] LABS: Appearance Urine UA CLEAR; Bilirubin Urine UA NEGATIVE (NEGATIVE); Color Urine UA YELLOW; Glucose Urine UA NEGATIVE (Normal); Ketones Urine UA 1+ (NEGATIVE); Leukocyte Esterase Urine UA NEGATIVE (NEGATIVE); Nitrite Urine UA NEGATIVE (Negative); Occult Blood Urine UA 2+ (Negative); Protein Urine UA NEGATIVE (Negative); Urobilinogen Urine UA 0.2 E.U./dL (0.2)
[2018-04-18 14:20] LABS: Amorphous Sediment Urine 1+; Bacteria Urine Moderate (10-30); Mucus Urine 1+ (Negative); RBC Urine 1-5/HPF (0-5/HPF); Squamous Epithelial Cell Urine 1-5 /HPF; WBC Urine 1-5/HPF (0-5/HPF)
[2018-04-18 15:13] LABS: HCG Quantitative /Beta subunit 31932 mIU/mL
[2018-04-18 16:09] LABS: Hepatitis B Surface Antigen NEGATIVE s/c (NEGATIVE); Rubella Antibody IgG 19.9 IU/mL (>15)
[2018-04-18 16:26] LABS: HIV 1 and 2 Antibody NEGATIVE (NEGATIVE); Hep C Virus Ab w/Reflex Quant NEGATIVE s/c (NEGATIVE)
[2018-04-20 14:21] LABS: RPR Screen Nonreactive (Nonreactive)
[2018-04-20 15:19] LABS: HSV 2 IGG AB < 0.90 index (< 0.90); HSV1IGG < 0.90 index (< 0.90)
== END ==
PROVIDERS: PCP Internal Medicine; Visit Provider Obstetrics & Gynecology
DX: Z34.81 Encounter for supervision of other normal pregnancy, first trimester (principal); Z3A.01 Less than 8 weeks gestation of pregnancy; N96 Recurrent pregnancy loss; O20.9 Hemorrhage in early pregnancy, unspecified
CPT/HCPCS: 36415; 80055; 81003; 81015; 84702; 86695; 86696; 86703; 86787; 86803; 86850; 86900; 86901; 87086

== ENCOUNTER → 2018-04-20 16:49 | Outpatient (CLI) | payer OTHER, MEDICAID, SELFPAY ==
[2018-04-20 20:04] LABS: HCG Quantitative /Beta subunit 44197 mIU/mL
== END ==
PROVIDERS: PCP Internal Medicine; Visit Provider Obstetrics & Gynecology
DX: N96 Recurrent pregnancy loss (principal); O20.9 Hemorrhage in early pregnancy, unspecified
CPT/HCPCS: 36415; 84702

== ENCOUNTER 2018-04-24 12:20 | Emergency (ER) | payer OTHER, MEDICAID, SELFPAY ==
[2018-04-24 12:29] VITALS: BP 113/76; PULSE 84; RESP 20; TEMP 37.1; O2SAT 98; BMI 56.2
[2018-04-24 13:48] VITALS: BP 134/54; PULSE 77; RESP 15; O2SAT 100
--- NOTE | 2018-04-24 14:15 | ED.FEMALEGU ---
HPI - Female Genitourinary General Chief complaint: Vaginal Bleeding Stated complaint: weeks bleeding Time Seen by Provider: 04/24/18 13:14 Source: patient Mode of arrival: ambulatory Limitations: no limitations History of Present Illness HPI Narrative: Patient states for about the past week she has been having brownish vaginal discharge in small amounts. However, today she states she noticed some reddish discoloration on her underwear plus some small clots. She states that now, it feels like it has slowed down, and she only noticed little bit of brownish discharge when she last urinated. Patient states she has had some mild cramping, but otherwise, has not had any other unusual symptoms. She states she has been slightly nauseated throughout the last couple of weeks. She states she is about 7 weeks . No other symptoms this time; fevers cough, diarrhea, or abdominal pain other than the cramping. Patient states she has a history of 2 other pregnancies, 1 of which ended spontaneously 8 weeks, and the other 1 of which ended in labor at 25 weeks with delivery of the fetus, who did not survive. Patient states was diagnosed with cervical insufficiency, and states that her harness racing handicapper has already discussed with her the likelihood of cerclage to help get her through this . She states she had an ultrasound a couple of weeks ago, but only the sac was visible in the uterus at that time. Patient has not noticed passage of any products of conception. Related Data Home Medications Medication Instructions Recorded Confirmed naproxen sodium [Aleve] 2 tab PO DAILY PRN 11/03/17 02/08/18 omeprazole 20 mg PO DAILY 11/03/17 02/08/18 Previous Rx's Medication Instructions Recorded nadolol 20 mg tablet 20 mg PO .COMPLEX #60 tab 01/18/18 ondansetron 4 mg disintegrating 4 mg PO Q6-8H PRN #10 tab 01/20/18 tablet acetaminophen 500 mg PO Q4-6H PRN #30 cap 04/11/18 progesterone micronized 100 mg 1 insert VAG BID #21 each 04/21/18 vaginal insert Allergies Allergy/AdvReac Type Severity Reaction Status Date / Time Penicillins [PENICILLINS] Allergy Intermediate HIVES, Verified 04/24/18 12:33 difficulty breathing amoxicillin [AMOXICILLIN] Allergy Mild HIVES, Verified 04/24/18 12:33 difficulty breathing hydrocodone [From Vicodin] AdvReac Mild Nausea Verified 04/24/18 12:33 ibuprofen [From Motrin] AdvReac Gastrointestinal Verified 04/24/18 12:33 Upset Review of Systems Review of Systems All systems reviewed & are unremarkable except as noted in HPI and below Constitutional Denies chills, Denies fever(s), Denies lethargy and Denies weakness Eyes Denies change in vision, Denies eye discharge, Denies irritation and Denies loss of vision ENT Ears, Nose, Mouth, and Throat: Denies change in voice, Denies neck pain and Denies sore throat Cardiovascular Denies chest pain, Denies irregular heart rhythm, Denies lightheadedness, Denies palpitations, Denies dyspnea, Denies dyspnea on exertion and Denies orthopnea Respiratory Denies cough, Denies dyspnea, Denies dyspnea on exertion and Denies wheezing Gastrointestinal Gastrointestinal: Denies abdominal pain, Denies change in bowel habits, Denies diarrhea, Denies nausea and Denies vomiting Genitourinary Reports abnormal vaginal bleeding, Denies hematuria, Denies flank pain, Denies urinary incontinence and Denies urinary urgency Musculoskeletal Denies neck pain Integumentary/Breasts Denies pruritus, Denies erythema, Denies rash and Denies wounds Neurologic Denies confusion, Denies loss of vision and Denies weakness Psychiatric Denies anxiety, Denies confusion, Denies depression, Denies homicidal ideation and Denies suicidal ideation Endocrine Denies palpitations Hematologic/Lymphatic Denies easy bruising Allergic/Immunologic Denies wheezing FOR[facility] Medical History Anxiety (Chronic) Depression (Chronic) GERD (gastroesophageal reflux disease) (Chronic) Migraines (Chronic) Premature delivery before 37 weeks (Resolved 12/17/15) Prior miscarriage with in first trimester, antepartum (Resolved 1995) Visit for wound care (Resolved) Surgical History Encounter for management of vacuum-assisted closure (VAC) of wound (Resolved 12/28/15) History of colonoscopy (Resolved 2014) History of laparoscopic cholecystectomy (Resolved 11/09/17) Status post delivery (Resolved 12/17/15) Status post debridement (Resolved 12/25/15) Status post debridement (Resolved 12/26/15) Family History Grandfather Diabetes mellitus Other Breast cancer Gallstones Heart disease Hypertension Ovarian cancer Social History household members: significant other and family Smoking Status: Current every day smoker alcohol intake: current Exam Initial Vital Signs Initial Vital Signs: Vital Signs Temperature 98.8 F 04/24/18 12:29 Pulse Rate 84 04/24/18 12:29 Respiratory Rate 20 04/24/18 12:29 Blood Pressure 113/76 04/24/18 12:29 Pulse Oximetry 98 04/24/18 12:29 Const General: cooperative and well developed Nutritional Appearance: well nourished Orientation: alert, awake, oriented x3 and not confused HENAR Head: normocephalic and atraumatic Ears: external ears normal Nose: external nose normal and No nasal discharge Face and sinus: face symmetric, no sinus tenderness and No dry mucous membranes Mouth: oral mucosae normal and moist mucous membranes Teeth and gingiva: dentition normal Eyes General: appearance normal, both eyes and all related structures Eyelids: eyelids normal Conjunctivae: conjunctivae normal Sclera: sclerae normal Pupils: PERRL EOM: EOM intact bilaterally Neck Neck: normal visual inspection, trachea midline, No lymphadenopathy, No midline deformity and No JVD Lymphatic: No lymphedema Chest Chest: normal inspection of the chest Resp Effort & Inspection: normal respiratory effort, able to speak in complete sentences, no respiratory distress and no use of accessory muscles Auscultation: clear to auscultation bilaterally, no rales, no rhonchi and no wheezes Cardio Rate: regular rate Rhythm: regular rhythm Heart Sounds: no click, no gallops, no murmurs and no rubs Pulses: normal peripheral pulses GI Inspection: non-distended Palpation: soft, no hepatosplenomegaly, No guarding, No pulsatile mass and No tender Auscultation: normal bowel sounds Back/Spine/Pelvis Back: No CVA tenderness Cervical Spine: cervical ROM normal and No pain with cervical ROM Thoracic/Lumbar Spine: thoracic and lumbar spine normal to inspection Skin General: no rashes or lesions noted, No jaundice and No petechiae Neuro General: alert, oriented x3, gait normal and no focal motor deficits Speech: speech normal Extrem General: full ROM, no clubbing, cyanosis or edema, no pedal edema and no calf tenderness Psych Appearance: well kempt Mental Status: mental status grossly normal Attitude: cooperative Thought Content: normal and suicidality Judgment: judgment good Course Course Narrative: Patient was worked up with a quantitative HCG and OB ultrasound, which showed a viable 7 week intrauterine . The ultrasound also showed a bicornuate uterus, with the and 1 horn, and blood and debris and the other horn. This is most likely the source of the patient's ongoing light vaginal bleeding. I did discuss this with the patient. We have discussed home management of the symptoms, Care, and the usual indications for return. We have also discussed the patient's need for follow-up with her harness racing handicapper specialist. Orders Ordered: ED Orders 04/24/18 14:14 US OB <= 14 weeks fetus Stat HCG Quantitative Stat Vital Signs - 8 hr 04/24/18 12:29 04/24/18 13:48 Temperature 98.8 F Pulse Rate 84 77 Respiratory Rate 20 15 Blood Pressure 113/76 Blood Pressure [Right Arm] 134/54 L Pulse Oximetry 98 100 MDM - Female Genitourinary Medical Records Attestation: I reviewed the patient's medical records. Lab Data Attestation: I reviewed the patient's lab results. Lab Results 04/24/18 Range/Units 14:40 HCG, Quant 20318 mIU/mL Urine Dip Bedside Urine Glucose Negative Bedside Urine Bilirubin - Negative Bedside Urine Ketone - Negative Urine Specific [place] 1.010 Bedside Urine Occult Blood ++ Bedside Urine pH 6.0 Bedside Urine Protein - Negative Bedside Urine Urobilinogen - Negative Bedside Urine Nitrite - Negative Bedside Urine Leukocytes - Negative Esterase Imaging Data Ob ultrasound: Radiologist's impression: ADDENDUM This report includes an Addendum and supersedes previous reports for this exam. PROCEDURE: US OB <= 14 WEEKS FETUS INDICATIONS: vaginal bleeding 7 weeks OUTSIDE/PRIOR DATING DATA: Last menstrual period (LMP): 02/26/18. LMP-based estimated date of delivery (HILARIO): 12/03/16. First dating scan (date and location): 04/11/18 (mean sac diameter) and 04/24/18 ([facility]) Estimated date of delivery (HILARIO) from first dating scan: 12/11/18. TECHNIQUE: Real-time scanning was performed of the fetus and maternal pelvic organs, with image documentation. Endovaginal scanning was also performed to better visualize the fetus and maternal ovaries. COMPARISON: None. FINDINGS: Embryo: There is an early first trimester gestation with crown-rump length of 1.0 cm correlated with a gestational age of 7 weeks zero days, plus or -5 days, with heart rate 128 beats per minute. Measurement variability in dating: +/- 4 weeks by LMP, +/- 7 days by mean sac diameter (use before 6 weeks gestation if crown-rump length not able to be measured), +/- 5 days by crown-rump length (up to 8 weeks 6 days gestation), +/- 7 days by crown-rump length (up to 13 weeks 6 days gestation). Maternal organs: Ovaries normal considering gestational status. Limited images through the kidneys demonstrate no hydronephrosis. IMPRESSION: A viable intrauterine gestation is currently present with crown-rump length 1.0 cm that correlates with a gestational age of 7 weeks zero days, plus or -5 days, with delivery date projected to be centered on 12/11/18, plus or -5 days, and followup anatomic survey in 21 weeks gestation is recommended. Dictated by: Alex Morel M.D. on 04/24/2018 at 18:13 Approved by: Alex Morel M.D. on 04/24/2018 at 18:15 ADDENDUM: COMPARISON: [facility], PELVIC COMPLETE, 02/05/2017, 13:13. [facility], US OB <= 14 WEEKS FETUS, 04/11/2018, 13:44. Upon further review, there is likely either an arcuate or possible bicornuate uterus with the identified within the right upper uterine margin and a small complex fluid collection seen within the left upper uterine margin which may represent hemorrhagic products. Followup is recommended. If indicated, a high-resolution endovaginal ultrasound could be performed after the patient has delivered to further assess for arcuate versus bicornuate uterine morphology. Dr. Clemons's nurse given results and recommendations at 1300 hrs. 04/25/2018. Dictated by: Kit SEPULVEDA Interpreted: Alex Morel MD on 04/25/2018 at 14:05 Approved by: Alex Morel M.D. on 04/25/2018 at 15:01 Addendum Dictated By:Alex Morel MD Addendum Signed By: Addendum Cosigned By: DD/ TD/TT: 04/25/18 PROCEDURE: US OB <= 14 WEEKS FETUS INDICATIONS: vaginal bleeding 7 weeks OUTSIDE/PRIOR DATING DATA: Last menstrual period (LMP): 02/26/18. LMP-based estimated date of delivery (HILARIO): 12/03/16. First dating scan (date and location): 04/11/18 (mean sac diameter) and 04/24/18 ([facility]) Estimated date of delivery (HILARIO) from first dating scan: 12/11/18. TECHNIQUE: Real-time scanning was performed of the fetus and maternal pelvic organs, with image documentation. Endovaginal scanning was also performed to better visualize the fetus and maternal ovaries. COMPARISON: None. FINDINGS: Embryo: There is an early first trimester gestation with crown-rump length of 1.0 cm correlated with a gestational age of 7 weeks zero days, plus or -5 days, with heart rate 128 beats per minute. Measurement variability in dating: +/- 4 weeks by LMP, +/- 7 days by mean sac diameter (use before 6 weeks gestation if crown-rump length not able to be measured), +/- 5 days by crown-rump length (up to 8 weeks 6 days gestation), +/- 7 days by crown-rump length (up to 13 weeks 6 days gestation). Maternal organs: Ovaries normal considering gestational status. Limited images through the kidneys demonstrate no hydronephrosis. IMPRESSION: A viable intrauterine gestation is currently present with crown-rump length 1.0 cm that correlates with a gestational age of 7 weeks zero days, plus or -5 days, with delivery date projected to be centered on 12/11/18, plus or -5 days, and followup anatomic survey in 21 weeks gestation is recommended. Dictated by: Alex Morel M.D. on 04/24/2018 at 18:13 Approved by: Alex Morel M.D. on 04/24/2018 at 18:15 Discharge Plan Departure Patient Disposition: Home Clinical Impression: Threatened Discharge Date/Time: 04/24/18 17:46 Interventions: ED Discharge Assessment Last Done: 04/24/18 17:45 Instructions: DI for Threatened Activity Restrictions/Additional Instructions: Your ultrasound showed a live, intrauterine at about 7 weeks. You do appear to have some bloody material to the side of the structures, but not involving the fetus or structures themselves, which is most likely leaking out and the source of the bloody discharge have been having. At this point in time, there is no evidence of problems with the itself; however, whenever you bleed during , there is somewhat of a chance of miscarriage. Please continue to follow up with your OB doctor, and use the Zofran and vitamins as directed please get plenty of water and helpful for to encourage healthy growth of your baby. Prescriptions: No Action ondansetron 4 mg tablet,disintegrating 4 mg PO Q6-8H PRN (Reason: nausea and vomiting) Qty: 10 RF: 0 progesterone micronized 100 mg insert 1 insert VAG BID Qty: 21 RF: 6 omeprazole 20 mg Capsule,Delayed Release(Dr/Ec) 20 mg PO DAILY RF: 0 naproxen sodium [Aleve] 220 mg Capsule 2 tab PO DAILY PRN (Reason: pain) RF: 0 acetaminophen 500 mg capsule 500 mg PO Q4-6H PRN (Reason: pain) Qty: 30 RF: 0 nadolol 20 mg tablet 20 mg PO .COMPLEX Qty: 60 RF: 1 Referrals: Jw Cardona MD [Primary Care Provider] -
--- NOTE | 2018-04-24 14:19 | ED_ITS ---
HPI - Female Genitourinary General Chief complaint: Vaginal Bleeding Stated complaint: weeks bleeding Time Seen by Provider: 04/24/18 13:14 Source: patient Mode of arrival: ambulatory Limitations: no limitations History of Present Illness HPI Narrative: Patient states for about the past week she has been having brownish vaginal discharge in small amounts. However, today she states she noticed some reddish discoloration on her underwear plus some small clots. She states that now, it feels like it has slowed down, and she only noticed little bit of brownish discharge when she last urinated. Patient states she has had some mild cramping, but otherwise, has not had any other unusual symptoms. She states she has been slightly nauseated throughout the last couple of weeks. She states she is about 7 weeks . No other symptoms this time; fevers cough, diarrhea, or abdominal pain other than the cramping. Patient states she has a history of 2 other pregnancies, 1 of which ended spontaneously 8 weeks, and the other 1 of which ended in labor at 25 weeks with delivery of the fetus, who did not survive. Patient states was diagnosed with cervical insufficiency, and states that her baker helper has already discussed with her the likelihood of cerclage to help get her through this . She states she had an ultrasound a couple of weeks ago, but only the sac was visible in the uterus at that time. Patient has not noticed passage of any products of conception. Related Data Home Medications Medication Instructions Recorded Confirmed naproxen sodium [Aleve] 2 tab PO DAILY PRN 11/03/17 02/08/18 omeprazole 20 mg PO DAILY 11/03/17 02/08/18 Previous Rx's Medication Instructions Recorded nadolol 20 mg tablet 20 mg PO .COMPLEX #60 tab 01/18/18 ondansetron 4 mg disintegrating 4 mg PO Q6-8H PRN #10 tab 01/20/18 tablet acetaminophen 500 mg PO Q4-6H PRN #30 cap 04/11/18 progesterone micronized 100 mg 1 insert VAG BID #21 each 04/21/18 vaginal insert Allergies Allergy/AdvReac Type Severity Reaction Status Date / Time Penicillins [PENICILLINS] Allergy Intermediate HIVES, Verified 04/24/18 12:33 difficulty breathing amoxicillin [AMOXICILLIN] Allergy Mild HIVES, Verified 04/24/18 12:33 difficulty breathing hydrocodone [From Vicodin] AdvReac Mild Nausea Verified 04/24/18 12:33 ibuprofen [From Motrin] AdvReac Gastrointestinal Verified 04/24/18 12:33 Upset Review of Systems Review of Systems All systems reviewed & are unremarkable except as noted in HPI and below Constitutional Denies chills, Denies fever(s), Denies lethargy and Denies weakness Eyes Denies change in vision, Denies eye discharge, Denies irritation and Denies loss of vision ENT Ears, Nose, Mouth, and Throat: Denies change in voice, Denies neck pain and Denies sore throat Cardiovascular Denies chest pain, Denies irregular heart rhythm, Denies lightheadedness, Denies palpitations, Denies dyspnea, Denies dyspnea on exertion and Denies orthopnea Respiratory Denies cough, Denies dyspnea, Denies dyspnea on exertion and Denies wheezing Gastrointestinal Gastrointestinal: Denies abdominal pain, Denies change in bowel habits, Denies diarrhea, Denies nausea and Denies vomiting Genitourinary Reports abnormal vaginal bleeding, Denies hematuria, Denies flank pain, Denies urinary incontinence and Denies urinary urgency Musculoskeletal Denies neck pain Integumentary/Breasts Denies pruritus, Denies erythema, Denies rash and Denies wounds Neurologic Denies confusion, Denies loss of vision and Denies weakness Psychiatric Denies anxiety, Denies confusion, Denies depression, Denies homicidal ideation and Denies suicidal ideation Endocrine Denies palpitations Hematologic/Lymphatic Denies easy bruising Allergic/Immunologic Denies wheezing [facility] Medical History Anxiety (Chronic) Depression (Chronic) GERD (gastroesophageal reflux disease) (Chronic) Migraines (Chronic) Premature delivery before 37 weeks (Resolved 12/17/15) Prior miscarriage with in first trimester, antepartum (Resolved 1995) Visit for wound care (Resolved) Surgical History Encounter for management of vacuum-assisted closure (VAC) of wound (Resolved ) History of colonoscopy (Resolved 2014) History of laparoscopic cholecystectomy (Resolved 11/09/17) Status post delivery (Resolved 12/17/15) Status post debridement (Resolved 12/25/15) Status post debridement (Resolved 12/26/15) Family History Grandfather Diabetes mellitus Other Breast cancer Gallstones Heart disease Hypertension Ovarian cancer Social History household members: significant other and family Smoking Status: Current every day smoker alcohol intake: current Exam Initial Vital Signs Initial Vital Signs: Vital Signs Temperature 98.8 F 04/24/18 12:29 Pulse Rate 84 04/24/18 12:29 Respiratory Rate 20 04/24/18 12:29 Blood Pressure 113/76 04/24/18 12:29 Pulse Oximetry 98 04/24/18 12:29 Const General: cooperative and well developed Nutritional Appearance: well nourished Orientation: alert, awake, oriented x3 and not confused HENUT Head: normocephalic and atraumatic Ears: external ears normal Nose: external nose normal and No nasal discharge Face and sinus: face symmetric, no sinus tenderness and No dry mucous membranes Mouth: oral mucosae normal and moist mucous membranes Teeth and gingiva: dentition normal Eyes General: appearance normal, both eyes and all related structures Eyelids: eyelids normal Conjunctivae: conjunctivae normal Sclera: sclerae normal Pupils: PERRL EOM: EOM intact bilaterally Neck Neck: normal visual inspection, trachea midline, No lymphadenopathy, No midline deformity and No JVD Lymphatic: No lymphedema Chest Chest: normal inspection of the chest Resp Effort & Inspection: normal respiratory effort, able to speak in complete sentences, no respiratory distress and no use of accessory muscles Auscultation: clear to auscultation bilaterally, no rales, no rhonchi and no wheezes Cardio Rate: regular rate Rhythm: regular rhythm Heart Sounds: no click, no gallops, no murmurs and no rubs Pulses: normal peripheral pulses GI Inspection: non-distended Palpation: soft, no hepatosplenomegaly, No guarding, No pulsatile mass and No tender Auscultation: normal bowel sounds Back/Spine/Pelvis Back: No CVA tenderness Cervical Spine: cervical ROM normal and No pain with cervical ROM Thoracic/Lumbar Spine: thoracic and lumbar spine normal to inspection Skin General: no rashes or lesions noted, No jaundice and No petechiae Neuro General: alert, oriented x3, gait normal and no focal motor deficits Speech: speech normal Extrem General: full ROM, no clubbing, cyanosis or edema, no pedal edema and no calf tenderness Psych Appearance: well kempt Mental Status: mental status grossly normal Attitude: cooperative Thought Content: normal and suicidality Judgment: judgment good Course Course Narrative: Patient was worked up with a quantitative HCG and OB ultrasound, which showed a viable 7 week intrauterine . The ultrasound also showed a bicornuate uterus, with the and 1 horn, and blood and debris and the other horn. This is most likely the source of the patient's ongoing light vaginal bleeding. I did discuss this with the patient. We have discussed home management of the symptoms, Care, and the usual indications for return. We have also discussed the patient's need for follow-up with her baker helper specialist. Orders Ordered: ED Orders 04/24/18 14:14 US OB <= 14 weeks fetus Stat HCG Quantitative Stat Vital Signs - 8 hr 04/24/18 12:29 04/24/18 13:48 Temperature 98.8 F Pulse Rate 84 77 Respiratory Rate 20 15 Blood Pressure 113/76 Blood Pressure [Right Arm] 134/54 L Pulse Oximetry 98 100 MDM - Female Genitourinary Medical Records Attestation: I reviewed the patient's medical records. Lab Data Attestation: I reviewed the patient's lab results. Lab Results 04/24/18 Range/Units 14:40 HCG, Quant 87612 mIU/mL Urine Dip Bedside Urine Glucose Negative Bedside Urine Bilirubin - Negative Bedside Urine Ketone - Negative Urine Specific [place] 1.010 Bedside Urine Occult Blood ++ Bedside Urine pH 6.0 Bedside Urine Protein - Negative Bedside Urine Urobilinogen - Negative Bedside Urine Nitrite - Negative Bedside Urine Leukocytes - Negative Esterase Imaging Data Ob ultrasound: Radiologist's impression: ADDENDUM This report includes an Addendum and supersedes previous reports for this exam. PROCEDURE: US OB <= 14 WEEKS FETUS INDICATIONS: vaginal bleeding 7 weeks OUTSIDE/PRIOR DATING DATA: Last menstrual period (LMP): 02/26/18. LMP-based estimated date of delivery (HILARIO): 12/03/16. First dating scan (date and location): 04/11/18 (mean sac diameter) and 04/24/18 ([facility]) Estimated date of delivery (HILARIO) from first dating scan: 12/11/18. TECHNIQUE: Real-time scanning was performed of the fetus and maternal pelvic organs, with image documentation. Endovaginal scanning was also performed to better visualize the fetus and maternal ovaries. COMPARISON: None. FINDINGS: Embryo: There is an early first trimester gestation with crown-rump length of 1.0 cm correlated with a gestational age of 7 weeks zero days, plus or -5 days, with heart rate 128 beats per minute. Measurement variability in dating: +/- 4 weeks by LMP, +/- 7 days by mean sac diameter (use before 6 weeks gestation if crown-rump length not able to be measured), +/ - 5 days by crown-rump length (up to 8 weeks 6 days gestation), +/- 7 days by crown-rump length (up to 13 weeks 6 days gestation). Maternal organs: Ovaries normal considering gestational status. Limited images through the kidneys demonstrate no hydronephrosis. IMPRESSION: A viable intrauterine gestation is currently present with crown- rump length 1.0 cm that correlates with a gestational age of 7 weeks zero days, plus or -5 days, with delivery date projected to be centered on 12/11/18, plus or -5 days, and followup anatomic survey in 21 weeks gestation is recommended. Dictated by: Alex Morel M.D. on 04/24/2018 at 18:13 Approved by: Alex Morel M.D. on 04/24/2018 at 18:15 ADDENDUM: COMPARISON: [facility], PELVIC COMPLETE, 02/05/2017, 13:13. [facility], US OB <= 14 WEEKS FETUS, 04/11/2018, 13:44. Upon further review, there is likely either an arcuate or possible bicornuate uterus with the identified within the right upper uterine margin and a small complex fluid collection seen within the left upper uterine margin which may represent hemorrhagic products. Followup is recommended. If indicated, a high-resolution endovaginal ultrasound could be performed after the patient has delivered to further assess for arcuate versus bicornuate uterine morphology. Dr. Clemons's nurse given results and recommendations at 1300 hrs. 04/25/2018. Dictated by: Kit SEPULVEDA Interpreted: Alex Morel MD on 04/25/2018 at 14 :05 Approved by: Alex Morel M.D. on 04/25/2018 at 15:01 Addendum Dictated By:Alex Morel MD Addendum Signed By: Addendum Cosigned By: DD/ TD/TT: 04/25/18 PROCEDURE: US OB <= 14 WEEKS FETUS INDICATIONS: vaginal bleeding 7 weeks OUTSIDE/PRIOR DATING DATA: Last menstrual period (LMP): 02/26/18. LMP-based estimated date of delivery (HILARIO): 12/03/16. First dating scan (date and location): 04/11/18 (mean sac diameter) and 04/24/18 ([facility]) Estimated date of delivery (HILARIO) from first dating scan: 12/11/18. TECHNIQUE: Real-time scanning was performed of the fetus and maternal pelvic organs, with image documentation. Endovaginal scanning was also performed to better visualize the fetus and maternal ovaries. COMPARISON: None. FINDINGS: Embryo: There is an early first trimester gestation with crown-rump length of 1.0 cm correlated with a gestational age of 7 weeks zero days, plus or -5 days, with heart rate 128 beats per minute. Measurement variability in dating: +/- 4 weeks by LMP, +/- 7 days by mean sac diameter (use before 6 weeks gestation if crown-rump length not able to be measured), +/ - 5 days by crown-rump length (up to 8 weeks 6 days gestation), +/- 7 days by crown-rump length (up to 13 weeks 6 days gestation). Maternal organs: Ovaries normal considering gestational status. Limited images through the kidneys demonstrate no hydronephrosis. IMPRESSION: A viable intrauterine gestation is currently present with crown- rump length 1.0 cm that correlates with a gestational age of 7 weeks zero days, plus or -5 days, with delivery date projected to be centered on 12/11/18, plus or -5 days, and followup anatomic survey in 21 weeks gestation is recommended. Dictated by: Alex Morel M.D. on 04/24/2018 at 18:13 Approved by: Alex Morel M.D. on 04/24/2018 at 18:15 Discharge Plan Departure Patient Disposition: Home Clinical Impression: Threatened Discharge Date/Time: 04/24/18 17:46 Interventions: ED Discharge Assessment Last Done: 04/24/18 17:45 Instructions: DI for Threatened Activity Restrictions/Additional Instructions: Your ultrasound showed a live, intrauterine at about 7 weeks. You do appear to have some bloody material to the side of the structures, but not involving the fetus or structures themselves, which is most likely leaking out and the source of the bloody discharge have been having. At this point in time, there is no evidence of problems with the itself; however, whenever you bleed during , there is somewhat of a chance of miscarriage. Please continue to follow up with your OB doctor, and use the Zofran and vitamins as directed please get plenty of water and helpful for to encourage healthy growth of your baby. Prescriptions: No Action ondansetron 4 mg tablet,disintegrating 4 mg PO Q6-8H PRN (Reason: nausea and vomiting) Qty: 10 RF: 0 progesterone micronized 100 mg insert 1 insert VAG BID Qty: 21 RF: 6 omeprazole 20 mg Capsule,Delayed Release(Dr/Ec) 20 mg PO DAILY RF: 0 naproxen sodium [Aleve] 220 mg Capsule 2 tab PO DAILY PRN (Reason: pain) RF: 0 acetaminophen 500 mg capsule 500 mg PO Q4-6H PRN (Reason: pain) Qty: 30 RF: 0 nadolol 20 mg tablet 20 mg PO .COMPLEX Qty: 60 RF: 1 Referrals: Jw Cardona MD [Primary Care Provider] -
[2018-04-24 15:30] VITALS: BP 134/54; PULSE 81; O2SAT 99
[2018-04-24 15:40] LABS: HCG Quantitative /Beta subunit 58750 mIU/mL
[2018-04-24 16:38] VITALS: BP 129/50; PULSE 83; RESP 18; O2SAT 99
[2018-04-24 17:32] VITALS: BP 124/54; PULSE 80; RESP 15; O2SAT 99
== END 2018-04-24 17:46 | disposition home or self-care (01) ==
PROVIDERS: Emergency Provider Emergency Medicine; PCP Internal Medicine
DX: O20.0 Threatened abortion (principal); Z3A.01 Less than 8 weeks gestation of pregnancy
CPT/HCPCS: 36415; 76801; 76817; 81003; 84702; 99283; 99284

== ENCOUNTER 2018-04-30 12:35 | Observation (INO) | payer OTHER, MEDICAID, SELFPAY ==
[2018-04-30 12:42] VITALS: BP 110/69; PULSE 85; RESP 22; TEMP 37; O2SAT 99
--- NOTE | 2018-04-30 12:46 | DI.US.S_ITS ---
PROCEDURE: US OB <= 14 WEEKS FETUS INDICATIONS: HEAVY BLEEDING OUTSIDE/PRIOR DATING DATA: Last menstrual period (LMP): 02/26/18. LMP-based estimated date of delivery (HILARIO): 12/03/16. First dating scan (date and location): 04/11/18 (mean sac diameter) and 04/24/18 ([facility]) Estimated date of delivery (HILARIO) from first dating scan: 12/11/18. TECHNIQUE: Real-time scanning was performed of the fetus and maternal pelvic organs, with image documentation. Endovaginal scanning was also performed to better visualize the fetus and maternal ovaries. COMPARISON: [facility], , OB <= 14 WEEKS FETUS, 04/24/2018, 17:03. FINDINGS: Embryo: Single living intrauterine gestation is present, with a crown-rump length of 13 mm, corresponding to a 7 week 4 day gestation, which is consistent with the estimated gestational age by initial ultrasound of 7 weeks 6 days. Bicornuate uterus is present. 40 mm diameter nonvascular echogenic focus within the left horn of the uterus, possibly indicating clot. This is increased slightly in size. Measurement variability in dating: +/- 4 weeks by LMP, +/- 7 days by mean sac diameter (use before 6 weeks gestation if crown-rump length not able to be measured), +/- 5 days by crown-rump length (up to 8 weeks 6 days gestation), +/- 7 days by crown-rump length (up to 13 weeks 6 days gestation). IMPRESSION: 1. Bicornuate uterus. 2. Single living intrauterine gestation within the right horn. 2. Increased nonvascular echogenic material within the left horn of the bicornuate uterus, consistent with hemorrhagic material, given the history of menorrhagia. Continued sonographic and clinical followup is recommended. Dictated by: Jose Antonio Rodriguez M.D. on 04/30/2018 at 14:03 Approved by: Jose Antonio Rodriguez M.D. on 04/30/2018 at 14:06
--- NOTE | 2018-04-30 13:09 | ED.PREGNANCY ---
HPI - <ROBERT Rashid - Last Filed: 04/30/18 22:02> General Chief complaint: OB/Uterine Contractions Stated complaint: Vaginal Bleeding Time Seen by Provider: 04/30/18 12:45 Source: patient Mode of arrival: ambulatory Limitations: no limitations History of Present Illness HPI Narrative: 37-year-old healthy female that is an everyday smoker that is currently 8 weeks . She is 4 para 0. She has a history of miscarriages on her prior pregnancies. She has been diagnosed with cervical insufficiency and has a bicornuate uterus. She was seen last week for spotting and ultrasound showed a viable to the right portion of the uterus and a blood clot to the left portion. She has not been in to see her OB since she was seen in the emergency room. Her OB is Dr. Clemons. She reports she has had increased bleeding and this morning approximately 1 pad an hour. She states she has some cramping. She denies passing any products of conception. She denies any urinary symptoms. She has positive p.o. intake no nausea or vomiting. MD Complaint: vaginal bleeding Related Data Home Medications Medication Instructions Recorded Confirmed naproxen sodium [Aleve] 2 tab PO DAILY PRN 11/03/17 02/08/18 omeprazole 20 mg PO DAILY 11/03/17 02/08/18 Previous Rx's Medication Instructions Recorded nadolol 20 mg tablet 20 mg PO .COMPLEX #60 tab 01/18/18 ondansetron 4 mg disintegrating 4 mg PO Q6-8H PRN #10 tab 01/20/18 tablet acetaminophen 500 mg PO Q4-6H PRN #30 cap 04/11/18 progesterone micronized 100 mg 1 insert VAG BID #21 each 04/21/18 vaginal insert oxycodone-acetaminophen 2 tab PO Q4HR PRN #20 tab 04/30/18 Allergies Allergy/AdvReac Type Severity Reaction Status Date / Time Penicillins [PENICILLINS] Allergy Intermediate HIVES, Verified 04/30/18 12:46 difficulty breathing amoxicillin [AMOXICILLIN] Allergy Mild HIVES, Verified 04/30/18 12:46 difficulty breathing hydrocodone [From Vicodin] AdvReac Mild Nausea Verified 04/30/18 12:46 ibuprofen [From Motrin] AdvReac Gastrointestinal Verified 04/30/18 12:46 Upset Review of Systems <ROBERT Rashid - Last Filed: 04/30/18 22:02> Review of Systems All systems reviewed & are unremarkable except as noted in HPI and below Constitutional Denies chills, Denies fatigue, Denies fever(s), Denies lethargy and Denies weakness ENT Ears, Nose, Mouth, and Throat: Denies change in voice, Denies neck pain and Denies sore throat Cardiovascular Denies dyspnea and Denies dyspnea on exertion Respiratory Denies cough, Denies dyspnea, Denies dyspnea on exertion and Denies wheezing Gastrointestinal Gastrointestinal: Denies abdominal pain, Denies change in bowel habits, Denies diarrhea, Denies nausea and Denies vomiting Genitourinary Comments: Vaginal bleeding Musculoskeletal Denies neck pain Integumentary/Breasts Denies pruritus, Denies erythema, Denies rash and Denies wounds Neurologic Denies confusion and Denies weakness Psychiatric Denies anxiety, Denies confusion, Denies depression, Denies homicidal ideation and Denies suicidal ideation Endocrine Denies fatigue and Denies flushing Allergic/Immunologic Denies wheezing Exam <ROBERT Rashid - Last Filed: 04/30/18 22:02> Initial Vital Signs Initial Vital Signs: Vital Signs Temperature 98.6 F 04/30/18 12:42 Pulse Rate 85 04/30/18 12:42 Respiratory Rate 22 04/30/18 12:42 Blood Pressure 110/69 04/30/18 12:42 Pulse Oximetry 99 04/30/18 12:42 Const General: cooperative and well developed Nutritional Appearance: well nourished Orientation: alert, awake, oriented x3 and not confused [facility] Mouth: oral mucosae normal and moist mucous membranes Eyes Conjunctivae: conjunctivae normal Sclera: sclerae normal Pupils: PERRL EOM: EOM intact bilaterally Resp Effort & Inspection: normal respiratory effort, able to speak in complete sentences, no respiratory distress and no use of accessory muscles Auscultation: clear to auscultation bilaterally, no rales, no rhonchi and no wheezes Cardio Rate: regular rate Rhythm: regular rhythm Heart Sounds: no click, no gallops, no murmurs and no rubs Pulses: normal peripheral pulses GI Inspection: non-distended Palpation: soft, no hepatosplenomegaly, No guarding, No pulsatile mass and No tender Auscultation: normal bowel sounds Skin General: no rashes or lesions noted, No jaundice and No petechiae Neuro General: alert, oriented x3, gait normal and no focal motor deficits Speech: speech normal <Geovani Huang DO - Last Filed: 05/01/18 07:05> Initial Vital Signs Initial Vital Signs: Vital Signs Temperature 98.6 F 04/30/18 12:42 Pulse Rate 85 04/30/18 12:42 Respiratory Rate 22 04/30/18 12:42 Blood Pressure 110/69 04/30/18 12:42 Pulse Oximetry 99 04/30/18 12:42 Course <ROBERT Rashid - Last Filed: 04/30/18 22:02> Orders Ordered: Discontinued Medications Acetaminophen (Tylenol) 650 mg PO NOW ONE Stop: 04/30/18 15:08 Last Admin: 04/30/18 15:12 Dose: 650 mg Acetaminophen (Tylenol) 650 mg PO Q6HR PRN PRN Reason: As Needed for Fever/Mild Pain Sodium Chloride (Normal Saline 0.9%) 1,000 mls @ 125 mls/hr IV CONT [facility] Last Infusion: 04/30/18 16:29 Dose: 125 mls/hr Admin: 04/30/18 16:27 Dose: 125 mls/hr Ondansetron HCl (Zofran) 4 mg IV Q4HR PRN PRN Reason: Nausea And Vomiting Oxycodone/Acetaminophen (Percocet 5/325) 2 tab PO Q4HR PRN PRN Reason: Pain, Severe (7-10) Last Admin: 04/30/18 17:14 Dose: 2 tab Progesterone (Prometrium) 200 mg PO DAILY [facility] Vital Signs - 8 hr 04/30/18 15:36 04/30/18 17:14 04/30/18 17:51 Temperature 97.8 F 97.8 F Pulse Rate 83 Respiratory Rate 18 18 Blood Pressure 133/76 Blood Pressure [Left Arm] 104/70 Pulse Oximetry 98 04/30/18 19:49 Temperature 97.9 F Pulse Rate 79 Respiratory Rate 18 Blood Pressure 138/79 Blood Pressure [Left Arm] Pulse Oximetry <Geovani Huang DO - Last Filed: 05/01/18 07:05> Orders Ordered: Discontinued Medications Acetaminophen (Tylenol) 650 mg PO NOW ONE Stop: 04/30/18 15:08 Last Admin: 04/30/18 15:12 Dose: 650 mg Acetaminophen (Tylenol) 650 mg PO Q6HR PRN PRN Reason: As Needed for Fever/Mild Pain Sodium Chloride (Normal Saline 0.9%) 1,000 mls @ 125 mls/hr IV CONT [facility] Last Infusion: 04/30/18 16:29 Dose: 125 mls/hr Admin: 04/30/18 16:27 Dose: 125 mls/hr Ondansetron HCl (Zofran) 4 mg IV Q4HR PRN PRN Reason: Nausea And Vomiting Oxycodone/Acetaminophen (Percocet 5/325) 2 tab PO Q4HR PRN PRN Reason: Pain, Severe (7-10) Last Admin: 04/30/18 17:14 Dose: 2 tab Progesterone (Prometrium) 200 mg PO DAILY [facility] Vital Signs - 8 hr 04/30/18 15:36 04/30/18 17:14 04/30/18 17:51 Temperature 97.8 F 97.8 F Pulse Rate 83 Respiratory Rate 18 18 Blood Pressure 133/76 Blood Pressure [Left Arm] 104/70 Pulse Oximetry 98 04/30/18 19:49 Temperature 97.9 F Pulse Rate 79 Respiratory Rate 18 Blood Pressure 138/79 Blood Pressure [Left Arm] Pulse Oximetry MDM - OB/Uterine Contractions <ROBERT Rashid - Last Filed: 04/30/18 22:02> Lab Data Result diagrams: 04/30/18 18:00 04/30/18 13:05 Lab Results 04/30/18 04/30/18 04/30/18 Range/Units 13:05 13:05 13:05 WBC 7.9 (4.5-11.0) X10^3/uL RBC 4.36 (4.0-5.2) X10^6/uL Hgb 12.7 (12.0-16.0) g/dL Hct 37.2 (36-46) % MCV 85.2 (80-100) fL MCH 29.0 (26-34) PG MCHC 34.1 (30-36) % RDW 13.3 (11.6-14.8) % Plt Count 219 (150-400) X10^3/uL Neut % (Auto) 62.2 (50-75) % Lymph % (Auto) 28.0 (25-40) % [place] % (Auto) 6.6 (3-14) % Eos % (Auto) 2.4 (2-4) % Baso % (Auto) 0.8 (0-2) % Neut # (Auto) 4900 (9762-2835) /uL Sodium 139 (137-145) mmol/L Potassium 4.5 (3.4-5.1) mmol/L Chloride 103 (98-107) mmol/L Carbon Dioxide 27 (22-32) mmol/L BUN 8 (7-17) mg/dL Creatinine 0.50 L (0.52-1.04) mg/dL Estimated GFR > 60.0 (>60) mL/min BUN/Creatinine Ratio 16.0 (6-22) Glucose 96 (70-100) mg/dL Calcium 8.9 (8.4-10.2) mg/dL Total Bilirubin 0.3 (0.2-1.3) mg/dL AST 29 (14-36) IU/L ALT 32 (9-52) IU/L Alkaline Phosphatase 56 (38-126) U/L Total Protein 6.7 (6.3-8.2) g/dL Albumin 3.9 (3.5-5.0) g/dL Globulin 2.8 (1.7-4.1) g/dL Albumin/Globulin Ratio 1.4 (1.0-2.8) HCG, Quant 48644 mIU/mL Blood Type O Positive 04/30/18 Range/Units 18:00 WBC 10.4 (4.5-11.0) X10^3/uL RBC 4.27 (4.0-5.2) X10^6/uL Hgb 12.3 (12.0-16.0) g/dL Hct 36.2 (36-46) % MCV 84.9 (80-100) fL MCH 28.9 (26-34) PG MCHC 34.0 (30-36) % RDW 13.4 (11.6-14.8) % Plt Count 230 (150-400) X10^3/uL Neut % (Auto) 75.7 H (50-75) % Lymph % (Auto) 17.7 L (25-40) % [place] % (Auto) 5.1 (3-14) % Eos % (Auto) 1.1 L (2-4) % Baso % (Auto) 0.4 (0-2) % Neut # (Auto) 7900 H (3855-5333) /uL Sodium (137-145) mmol/L Potassium (3.4-5.1) mmol/L Chloride (98-107) mmol/L Carbon Dioxide (22-32) mmol/L BUN (7-17) mg/dL Creatinine (0.52-1.04) mg/dL Estimated GFR (>60) mL/min BUN/Creatinine Ratio (6-22) Glucose (70-100) mg/dL Calcium (8.4-10.2) mg/dL Total Bilirubin (0.2-1.3) mg/dL AST (14-36) IU/L ALT (9-52) IU/L Alkaline Phosphatase (38-126) U/L Total Protein (6.3-8.2) g/dL Albumin (3.5-5.0) g/dL Globulin (1.7-4.1) g/dL Albumin/Globulin Ratio (1.0-2.8) HCG, Quant mIU/mL Blood Type Urine Dip Bedside Urine Glucose Negative Bedside Urine Bilirubin - Negative Bedside Urine Ketone - Negative Urine Specific [place] 1.015 Bedside Urine Occult Blood ++ Bedside Urine pH 6.0 Bedside Urine Protein ++ 100 Bedside Urine Urobilinogen - Negative Bedside Urine Nitrite + Positive Bedside Urine Leukocytes + 70 Esterase Imaging Data Ob ultrasound : Radiologist's impression: [address] [place] [address] Ultrasound Report Signed Patient: Merly Gasca [facility]#: [id number] : 1980Acct:[id number] Age/Sex: 37 / FDate of Service: 04/30/18 Loc: ED Accession Number: [id number] Procedure: US OB <= 14 weeks fetus Ordering Provider: Lorenzo Henriquez PROCEDURE: US OB <= 14 WEEKS FETUS INDICATIONS: HEAVY BLEEDING OUTSIDE/PRIOR DATING DATA: Last menstrual period (LMP): 02/26/18. LMP-based estimated date of delivery (HILARIO): 12/03/16. First dating scan (date and location): 04/11/18 (mean sac diameter) and 04/24/18 (CRL) Estimated date of delivery (HILARIO) from first dating scan: 12/11/18. TECHNIQUE: Real-time scanning was performed of the fetus and maternal pelvic organs, with image documentation. Endovaginal scanning was also performed to better visualize the fetus and maternal ovaries. COMPARISON: [facility], , OB <= 14 WEEKS FETUS, 04/24/2018, 17:03. FINDINGS: Embryo: Single living intrauterine gestation is present, with a crown-rump length of 13 mm, corresponding to a 7 week 4 day gestation, which is consistent with the estimated gestational age by initial ultrasound of 7 weeks 6 days. Bicornuate uterus is present. 40 mm diameter nonvascular echogenic focus within the left horn of the uterus, possibly indicating clot. This is increased slightly in size. Measurement variability in dating: +/- 4 weeks by LMP, +/- 7 days by mean sac diameter (use before 6 weeks gestation if crown-rump length not able to be measured), +/- 5 days by crown-rump length (up to 8 weeks 6 days gestation), +/- 7 days by crown-rump length (up to 13 weeks 6 days gestation). IMPRESSION: 1. Bicornuate uterus. 2. Single living intrauterine gestation within the right horn. 2. Increased nonvascular echogenic material within the left horn of the bicornuate uterus, consistent with hemorrhagic material, given the history of menorrhagia. Continued sonographic and clinical followup is recommended. Dictated by: Jose Antonio Rodriguez M.D. on 04/30/2018 at 14:03 Approved by: Jose Antonio Rodriguez M.D. on 04/30/2018 at 14:06 [facility] Narrative Medical decision making narrative: Ob ultrasound was obtained and shows a bicornuate uterus again a with a a live viable to 1/2 of the uterus and the other have having a blood clot. No other abnormal findings are seen. CBC was obtained was negative for any acute findings. Chem panel was obtained was also negative for any acute findings. HCG quant shows 67 K. she is O-positive. Discussed case with Dr. Lowe on-call Ob who states there is nothing to be done at this time. POC urine dip shows a blood and small amount of leuks. No nitrates. Recommend following up with her OB Dr. Clemons here in the next few days. Plenty of fluids. [id number] Tylenol as needed for any discomfort. For any worsening symptoms, bleeding or lightheadedness dizziness return to the emergency room. Addendum at time of discharge patient's vitals remained stable however patient felt dizzy and lightheaded when she stood up. Discussed case with Dr. Lowe again and recommended admission to observation and rechecks of her CBC to ensure is stable. Dr. Lowe accepted patient. She is admitted to observation. <Geovani Huang, DO - Last Filed: 05/01/18 07:05> Lab Data Lab Results 04/30/18 04/30/18 04/30/18 Range/Units 13:05 13:05 13:05 WBC 7.9 (4.5-11.0) X10^3/uL RBC 4.36 (4.0-5.2) X10^6/uL Hgb 12.7 (12.0-16.0) g/dL Hct 37.2 (36-46) % MCV 85.2 (80-100) fL MCH 29.0 (26-34) PG MCHC 34.1 (30-36) % RDW 13.3 (11.6-14.8) % Plt Count 219 (150-400) X10^3/uL Neut % (Auto) 62.2 (50-75) % Lymph % (Auto) 28.0 (25-40) % [place] % (Auto) 6.6 (3-14) % Eos % (Auto) 2.4 (2-4) % Baso % (Auto) 0.8 (0-2) % Neut # (Auto) 4900 (8035-8274) /uL Sodium 139 (137-145) mmol/L Potassium 4.5 (3.4-5.1) mmol/L Chloride 103 (98-107) mmol/L Carbon Dioxide 27 (22-32) mmol/L BUN 8 (7-17) mg/dL Creatinine 0.50 L (0.52-1.04) mg/dL Estimated GFR > 60.0 (>60) mL/min BUN/Creatinine Ratio 16.0 (6-22) Glucose 96 (70-100) mg/dL Calcium 8.9 (8.4-10.2) mg/dL Total Bilirubin 0.3 (0.2-1.3) mg/dL AST 29 (14-36) IU/L ALT 32 (9-52) IU/L Alkaline Phosphatase 56 (38-126) U/L Total Protein 6.7 (6.3-8.2) g/dL Albumin 3.9 (3.5-5.0) g/dL Globulin 2.8 (1.7-4.1) g/dL Albumin/Globulin Ratio 1.4 (1.0-2.8) HCG, Quant 85719 mIU/mL Blood Type O Positive 04/30/18 Range/Units 18:00 WBC 10.4 (4.5-11.0) X10^3/uL RBC 4.27 (4.0-5.2) X10^6/uL Hgb 12.3 (12.0-16.0) g/dL Hct 36.2 (36-46) % MCV 84.9 (80-100) fL MCH 28.9 (26-34) PG MCHC 34.0 (30-36) % RDW 13.4 (11.6-14.8) % Plt Count 230 (150-400) X10^3/uL Neut % (Auto) 75.7 H (50-75) % Lymph % (Auto) 17.7 L (25-40) % [place] % (Auto) 5.1 (3-14) % Eos % (Auto) 1.1 L (2-4) % Baso % (Auto) 0.4 (0-2) % Neut # (Auto) 7900 H (0424-1213) /uL Sodium (137-145) mmol/L Potassium (3.4-5.1) mmol/L Chloride (98-107) mmol/L Carbon Dioxide (22-32) mmol/L BUN (7-17) mg/dL Creatinine (0.52-1.04) mg/dL Estimated GFR (>60) mL/min BUN/Creatinine Ratio (6-22) Glucose (70-100) mg/dL Calcium (8.4-10.2) mg/dL Total Bilirubin (0.2-1.3) mg/dL AST (14-36) IU/L ALT (9-52) IU/L Alkaline Phosphatase (38-126) U/L Total Protein (6.3-8.2) g/dL Albumin (3.5-5.0) g/dL Globulin (1.7-4.1) g/dL Albumin/Globulin Ratio (1.0-2.8) HCG, Quant mIU/mL Blood Type Urine Dip Bedside Urine Glucose Negative Bedside Urine Bilirubin - Negative Bedside Urine Ketone - Negative Urine Specific [place] 1.015 Bedside Urine Occult Blood ++ Bedside Urine pH 6.0 Bedside Urine Protein ++ 100 Bedside Urine Urobilinogen - Negative Bedside Urine Nitrite + Positive Bedside Urine Leukocytes + 70 Esterase Discharge Plan Departure Patient Disposition: Admitted as Observation Clinical Impression: Threatened Discharge Date/Time: 04/30/18 16:30 Interventions: ED Discharge Assessment Last Done: 04/30/18 16:29 Admit Date/Time: 04/30/18 15:44 Admit Provider: Shawnee Lowe <Geovani Huang DO - Last Filed: 05/01/18 07:05> Cosign ED Attending Franca Attestation: I was available for consultation during this patient's emergency department encounter
[2018-04-30 13:16] LABS: Add Manual Diff / Slide Review NO; Basophils Percent Auto 0.8 % (0-2); Eosinophils Percent Auto 2.4 % (2-4); Hematocrit 37.2 % (36-46); Hemoglobin 12.7 g/dL (12.0-16.0); Mean Corpuscular HGB Conc 34.1 % (30-36); Mean Corpuscular Volume 85.2 fL (80-100); Monocytes Percent Auto 6.6 % (3-14); Neutrophils Absolute Auto 4900 /uL (3000-5900); Neutrophils Percent Auto 62.2 % (50-75); Platelet Count 219 X10^3/uL (150-400); Red Blood Cell Count 4.36 X10^6/uL (4.0-5.2); Red Cell Distribution Width 13.3 % (11.6-14.8); White Blood Cell Count 7.9 X10^3/uL (4.5-11.0)
[2018-04-30 13:34] LABS: Alanine Aminotransferase 32 IU/L (9-52); Albumin 3.9 g/dL (3.5-5.0); Albumin Globulin Ratio 1.4 (1.0-2.8); Alkaline Phosphatase 56 U/L (38-126); Aspartate Aminotransferase 29 IU/L (14-36); Bilirubin Total 0.3 mg/dL (0.2-1.3); Blood Urea Nitrogen 8 mg/dL (7-17); Calcium 8.9 mg/dL (8.4-10.2); Carbon Dioxide 27 mmol/L (22-32); Chloride 103 mmol/L (98-107); Estimated Glomerular Filt Rate > 60.0 mL/min (>60); Globulin 2.8 g/dL (1.7-4.1); Glucose 96 mg/dL (70-100); HEMOLYSIS < 15 (0-50); Potassium 4.5 mmol/L (3.4-5.1); Sodium 139 mmol/L (137-145); Total Protein 6.7 g/dL (6.3-8.2)
[2018-04-30 13:57] VITALS: BP 122/76; PULSE 76; RESP 15; O2SAT 100
[2018-04-30 14:17] LABS: HCG Quantitative /Beta subunit 67628 mIU/mL
[2018-04-30] MEDS: ACETAMINOPHEN 325 MG TABLET 650 MG PO (15:12)
[2018-04-30 15:36] VITALS: BP 104/70; PULSE 83; RESP 18; O2SAT 98
[2018-04-30] MEDS: SODIUM CHLORIDE 0.9% 1,000 ML 125 ML IV (16:27)
--- NOTE | 2018-04-30 17:00 | PC.NURSE ---
Pt up to bathroom with assist by two rn's. pt passed large clot in toilet. pt concerned and tearful that she had passed the fetus. rn examined clot. it appered to be a blood clot. pt assisted back to bed.
[2018-04-30 17:14] VITALS: TEMP 36.6
[2018-04-30] MEDS: OXYCODONE/ACETAMINOPHEN 5/325 TABLET 2 TAB PO (17:14)
[2018-04-30 17:20] VITALS: BMI 56.5
[2018-04-30 17:51] VITALS: BP 133/76; RESP 18; TEMP 36.6
--- NOTE | 2018-04-30 18:00 | PC.NURSE ---
Lab at bedside.
--- NOTE | 2018-04-30 18:10 | PC.NURSE ---
Pt up to the bathroom with rn assistance. pt reports she's feeing better. Dr. Lowe on the unit. Dr. Lowe given report on pt.
[2018-04-30 18:11] LABS: Add Manual Diff / Slide Review NO; Basophils Percent Auto 0.4 % (0-2); Eosinophils Percent Auto 1.1 % (2-4); Hematocrit 36.2 % (36-46); Hemoglobin 12.3 g/dL (12.0-16.0); Lymphocytes Percent Auto 17.7 % (25-40); Mean Corpuscular Hemoglobin 28.9 PG (26-34); Mean Corpuscular Volume 84.9 fL (80-100); Monocytes Percent Auto 5.1 % (3-14); Neutrophils Absolute Auto 7900 /uL (3000-5900); Neutrophils Percent Auto 75.7 % (50-75); Platelet Count 230 X10^3/uL (150-400); Red Blood Cell Count 4.27 X10^6/uL (4.0-5.2); Red Cell Distribution Width 13.4 % (11.6-14.8); White Blood Cell Count 10.4 X10^3/uL (4.5-11.0)
--- NOTE | 2018-04-30 18:20 | PC.NURSE ---
Dr. Lowe at bedside. poc discussed.
--- NOTE | 2018-04-30 18:35 | P.HPOB_ITS ---
History of Present Illness Reason for admission: early complication Narrative: Merly Gasca is a 37 year old female admitted for hemorrhage in 1st trimester [facility] Social History household members: significant other and family Smoking Status: Current every day smoker alcohol intake: current Meds Home Medications Medication Instructions Recorded Confirmed Type naproxen sodium [Aleve] 2 tab PO DAILY PRN 11/03/17 02/08/18 History omeprazole 20 mg PO DAILY 11/03/17 02/08/18 History nadolol 20 mg tablet 20 mg PO .COMPLEX #60 tab 01/18/18 02/08/18 Rx ondansetron 4 mg disintegrating 4 mg PO Q6-8H PRN #10 tab 01/20/18 02/08/18 Rx tablet acetaminophen 500 mg PO Q4-6H PRN #30 cap 04/11/18 Rx progesterone micronized 100 mg 1 insert VAG BID #21 each 04/21/18 Rx vaginal insert Allergies Allergy/AdvReac Type Severity Reaction Status Date / Time Penicillins [PENICILLINS] Allergy Intermediate HIVES, Verified 04/30/18 12:46 difficulty breathing amoxicillin [AMOXICILLIN] Allergy Mild HIVES, Verified 04/30/18 12:46 difficulty breathing hydrocodone [From Vicodin] AdvReac Mild Nausea Verified 04/30/18 12:46 ibuprofen [From Motrin] AdvReac Gastrointestinal Verified 04/30/18 12:46 Upset Review of Systems Review of Systems Patient complains of dizziness, pelvic cramping mostly on the left side, and extreme vaginal bleeding All systems reviewed & are unremarkable except as noted in HPI and below Exam Vital Signs (past 8 hours): - 04/30/18 12:42 04/30/18 13:57 04/30/18 15:36 Temperature 98.6 F Pulse Rate 85 76 83 Respiratory Rate 22 15 18 Blood Pressure 110/69 Blood Pressure [Left Arm] 122/76 104/70 Pulse Oximetry 99 100 98 04/30/18 17:14 04/30/18 17:51 Temperature 97.8 F 97.8 F Pulse Rate Respiratory Rate 18 Blood Pressure 133/76 Blood Pressure [Left Arm] Pulse Oximetry Oxygen Delivery Method Room Air Narrative Exam Narrative: HEENT exam within normal limits. Lungs are clear to auscultation and percussion. Heart is regular rate and rhythm no S3-S4 or murmurs. Abdomen is obese with mild tenderness but no rebound. Pelvic exam was not performed. Extremities without edema and nontender. Objective Imaging US - abdomen: Radiologist's impression: Bicornuate uterus, living IUP in the right horn , 7 weeks 4 days gestation, echogenic material within left horn of the uterus. Labs Result Diagrams: 04/30/18 18:00 04/30/18 13:05 Labs: Laboratory Results - last 24 hr 04/30/18 04/30/18 04/30/18 13:05 13:05 13:05 WBC 7.9 RBC 4.36 Hgb 12.7 Hct 37.2 MCV 85.2 MCH 29.0 MCHC 34.1 RDW 13.3 Plt Count 219 Neut % (Auto) 62.2 Lymph % (Auto) 28.0 [place] % (Auto) 6.6 Eos % (Auto) 2.4 Baso % (Auto) 0.8 Neut # (Auto) 4900 Sodium 139 Potassium 4.5 Chloride 103 Carbon Dioxide 27 BUN 8 Creatinine 0.50 L Estimated GFR > 60.0 BUN/Creatinine Ratio 16.0 Glucose 96 Calcium 8.9 Total Bilirubin 0.3 AST 29 ALT 32 Alkaline Phosphatase 56 Total Protein 6.7 Albumin 3.9 Globulin 2.8 Albumin/Globulin Ratio 1.4 HCG, Quant 36516 Blood Type O Positive 04/30/18 18:00 WBC 10.4 RBC 4.27 Hgb 12.3 Hct 36.2 MCV 84.9 MCH 28.9 MCHC 34.0 RDW 13.4 Plt Count 230 Neut % (Auto) 75.7 H Lymph % (Auto) 17.7 L [place] % (Auto) 5.1 Eos % (Auto) 1.1 L Baso % (Auto) 0.4 Neut # (Auto) 7900 H Sodium Potassium Chloride Carbon Dioxide BUN Creatinine Estimated GFR BUN/Creatinine Ratio Glucose Calcium Total Bilirubin AST ALT Alkaline Phosphatase Total Protein Albumin Globulin Albumin/Globulin Ratio HCG, Quant Blood Type Assessment & Plan (1) Threatened : Current visit: Yes Status: Acute Plan: Assessment/Plan Narrative: Threatened AB. Patient was admitted to observation due to bleeding and dizziness. Her hematocrit and vital signs have remained stable. Patient will likely be discharged in a few hours if she remains stable. Patient does not want to proceed with D&C at this point with viable . Quality VTE Deep Vein Thrombosis/Pulmonary Embolism Present on Admission: No
[2018-04-30 19:49] VITALS: BP 138/79; PULSE 79; RESP 18; TEMP 36.6
== END 2018-04-30 19:45 | disposition home or self-care (01) ==
LOC: ED 15:36 → AC 15:45 → LABOR 16:47
PROVIDERS: Admitting Provider Specialist; Emergency Provider Nurse Practitioner Family; PCP Internal Medicine; Visit Provider Specialist
DX: O20.0 Threatened abortion (principal); Z3A.01 Less than 8 weeks gestation of pregnancy; F17.210 Nicotine dependence, cigarettes, uncomplicated; O34.01 Maternal care for unspecified congenital malformation of uterus, first trimester; Q51.3 Bicornate uterus
CPT/HCPCS: 36415; 76801; 76817; 80053; 81003; 84702; 85025; 86900; 86901; 96360; 99283; G0378

== ENCOUNTER → 2018-05-13 13:22 | Outpatient (CLI) | payer OTHER, MEDICAID, SELFPAY ==
[2018-04-30 17:20] VITALS: BMI 56.5
--- NOTE | 2018-05-13 13:24 | DI.US.S_ITS ---
PROCEDURE: US PELVIC COMPLETE INDICATIONS: 9 WEEKS WITH PERSISTANT HEAVY BLEEDING TECHNIQUE: Real-time scanning was performed of the pelvic organs, with image documentation. Additional endovaginal scanning was necessary due to incomplete visualization of the adnexal and endometrial structures by transabdominal scanning. COMPARISON: [facility], , US OB <= 14 WEEKS FETUS, 04/30/2018, 13:11. [facility], , US OB <= 14 WEEKS FETUS, 05/04/2018, 15:04. [facility], , PELVIC COMPLETE, 02/05/2017, 13:13. FINDINGS: Transabdominal scanning: No pathologic free abdominal or pelvic fluid. Endovaginal scanning: Uterus: Uterus is normal in size at 9.9 x 5.6 x 8.5 cm. This patient has a bicornuate uterus. The endometrial stripe within the right horn measures 21 mm. There is nonvascular irregular material seen within the right horn, which likely related to clot. The left horn endometrial stripe measures up to 16 mm. Ovaries: Neither ovary can be seen. IMPRESSION: An intrauterine gestation is no longer seen. These imaging findings are attributed to spontaneous miscarriage in progress. Bicornuate uterus, with apparent clot seen within the right horn of the uterus. No abnormal vascularity can be seen to suggest retained products of conception. Dictated by: Hi Waters M.D. on 05/13/2018 at 13:52 Approved by: Hi Waters M.D. on 05/13/2018 at 13:55
== END ==
PROVIDERS: PCP Internal Medicine; Visit Provider Obstetrics & Gynecology
DX: O03.9 Complete or unspecified spontaneous abortion without complication (principal); O34.01 Maternal care for unspecified congenital malformation of uterus, first trimester; Q51.3 Bicornate uterus; Z3A.09 9 weeks gestation of pregnancy
CPT/HCPCS: 76830; 76856

== ENCOUNTER 2018-08-01 10:42 | Emergency (ER) | payer OTHER, SELFPAY ==
[2018-08-01 10:45] VITALS: BP 132/59; PULSE 84; RESP 18; TEMP 37; O2SAT 97
--- NOTE | 2018-08-01 11:15 | DI.RAD.S_ITS ---
PROCEDURE: XR KNEE RT 3V INDICATIONS: twist and felt pop, difficulty bearing weight. TECHNIQUE: 3 views of the knee were acquired. COMPARISON: [facility], KNEE 3V RIGHT, 02/27/2010, 19:46. [facility], , KNEE 3V RIGHT, 04/22/2016, 23:46. FINDINGS: Bones: No fractures or dislocations. No suspicious bony lesions. On the sunrise view, there is moderate lateral patellofemoral joint space narrowing seen. Osteophyte formation can be seen along the margins of the patella. Soft tissues: There is a mild joint effusion. No suspicious soft tissue calcifications. IMPRESSION: No acute bony abnormality can be seen. On these images, there is moderate lateral patellofemoral joint space narrowing seen. If it would be helpful for clinical management decision making, please consider a dedicated MRI for further evaluation (assuming that there is no contraindication). Dictated by: Hi Waters M.D. on 08/01/2018 at 10:45 Approved by: Hi Waters M.D. on 08/01/2018 at 10:46
--- NOTE | 2018-08-01 12:28 | ED_ITS ---
HPI - Extremity Injury (Lower) <Anastasiia Craven PA-C - Last Filed: 08/01/18 21:10> General Chief Complaint: Extremity Injury, Lower Stated Complaint: R KNEE SWOLLEN/PAIN Time Seen by Provider: 08/01/18 12:25 Source: patient and family Mode of arrival: ambulatory Limitations: no limitations History of Present Illness HPI Narrative: this 38-year-old female who suffers from chronic right knee pain due to remote meniscal injury 8 years ago states that she injured this again today at work. She states that she always has some degree of pain and has had recent swelling, but not keeping her from normal workday and being on her feet. She pivoted at work today and felt an abrupt pop sensation, then unable to bear weight due to pain. Is hard for her to tell whether this is unstable (pain is the limiting factor in her difficulty walking). . She denies any fall or any other injury. She has been taking NSAIDs and tried Tylenol at home for pain previously without much relief. Related Data Home Medications Medication Instructions Recorded Confirmed naproxen sodium [Aleve] 2 tab PO DAILY PRN 11/03/17 02/08/18 omeprazole 20 mg PO DAILY 11/03/17 02/08/18 medroxyprogesterone 08/01/18 Previous Rx's Medication Instructions Recorded ondansetron 4 mg disintegrating 4 mg PO Q6-8H PRN #10 tab 01/20/18 tablet acetaminophen 500 mg PO Q4-6H PRN #30 cap 04/11/18 pantoprazole 40 mg tablet,delayed 40 mg PO DAILY #30 tab 05/04/18 release oxycodone-acetaminophen 5 mg-325 1 tab PO Q4-6H PRN #20 tab 05/25/18 mg tablet lidocaine 2 patch TOP DAILY #30 each 08/01/18 meloxicam 15 mg PO DAILY #14 tab 08/01/18 Allergies Allergy/AdvReac Type Severity Reaction Status Date / Time Penicillins [PENICILLINS] Allergy Intermediate HIVES, Verified 04/30/18 12:46 difficulty breathing amoxicillin [AMOXICILLIN] Allergy Mild HIVES, Verified 08/01/18 10:53 difficulty breathing hydrocodone [From Vicodin] AdvReac Mild Nausea Verified 08/01/18 10:53 ibuprofen [From Motrin] AdvReac Gastrointestinal Verified 08/01/18 10:53 Upset Review of Systems <Anastasiia Craven PA-C - Last Filed: 08/01/18 21:10> Review of Systems ROS Unobtainable: All systems reviewed & are unremarkable except as noted in HPI and below PFSH <Anastasiia Craven PA-C - Last Filed: 08/01/18 21:10> Medical History Anxiety (Chronic) Depression (Chronic) GERD (gastroesophageal reflux disease) (Chronic) Migraines (Chronic) Premature delivery before 37 weeks (Resolved 12/17/15) Prior miscarriage with in first trimester, antepartum (Resolved 1995) Visit for wound care (Resolved) Surgical History Encounter for management of vacuum-assisted closure (VAC) of wound (Resolved 12/28/15) History of colonoscopy (Resolved 2014) History of laparoscopic cholecystectomy (Resolved 11/09/17) Status post delivery (Resolved 12/17/15) Status post debridement (Resolved 12/25/15) Status post debridement (Resolved 12/26/15) Family History Grandfather Diabetes mellitus Other Breast cancer Gallstones Heart disease Hypertension Ovarian cancer Social History household members: significant other and family Smoking Status: Current every day smoker alcohol intake: current Social History household members: significant other and family Smoking Status: Current every day smoker alcohol intake: current Exam <Anastasiia Craven PA-C - Last Filed: 08/01/18 21:10> Narrative Exam Narrative: GENERAL APPEARANCE: Patient sitting comfortably, in no distress. LUNGS: Clear to auscultation bilaterally. HEART: Rate and rhythm regular without murmur, normal S1 and S2, no S3 or S4. MUSCULOSKELETAL: right knee difficult to determine effusion secondary to girth. Tender throughout the joint line, a little bit more on the medial side. No tenderness superior to the patella. No tenderness inferior to the knee. Very limited range of motion secondary to tenderness, unable to assess for laxity secondary to tenderness NEUROVASCULAR: Right foot is warm and pink with pedal pulses intact, sensation grossly intact Initial Vital Signs Initial Vital Signs: Vital Signs Temperature 98.6 F 08/01/18 10:45 Pulse Rate 84 08/01/18 10:45 Respiratory Rate 18 08/01/18 10:45 Blood Pressure 132/59 L 08/01/18 10:45 Pulse Oximetry 97 08/01/18 10:45 <Pamella Kinney DO - Last Filed: 08/02/18 12:05> Initial Vital Signs Initial Vital Signs: Vital Signs Temperature 98.6 F 08/01/18 10:45 Pulse Rate 84 08/01/18 10:45 Respiratory Rate 18 08/01/18 10:45 Blood Pressure 132/59 L 08/01/18 10:45 Pulse Oximetry 97 08/01/18 10:45 Course <Anastasiia Craven PA-C - Last Filed: 08/01/18 21:10> Orders Ordered: Discontinued Medications Ibuprofen (Advil) 800 mg PO NOW ONE Stop: 08/01/18 12:26 Last Admin: 08/01/18 12:30 Dose: 800 mg Lidocaine (Lidoderm) 2 each TOP NOW ONE Stop: 08/01/18 12:42 Last Admin: 08/01/18 13:15 Dose: 2 each Vital Signs - 8 hr 08/01/18 13:28 Pulse Rate 88 Respiratory Rate 18 Blood Pressure 130/68 Pulse Oximetry 99 <Pamella Kinney DO - Last Filed: 08/02/18 12:05> Orders Ordered: Discontinued Medications Ibuprofen (Advil) 800 mg PO NOW ONE Stop: 08/01/18 12:26 Last Admin: 08/01/18 12:30 Dose: 800 mg Lidocaine (Lidoderm) 2 each TOP NOW ONE Stop: 08/01/18 12:42 Last Admin: 08/01/18 13:15 Dose: 2 each Vital Signs - 8 hr 08/01/18 13:28 Pulse Rate 88 Respiratory Rate 18 Blood Pressure 130/68 Pulse Oximetry 99 MDM - Extremity Injury (Lower) <Anastasiia Craven PA-C - Last Filed: 08/01/18 21:10> Imaging Data knee: Radiologist's impression: [address] [address] XRay Report Signed Patient: Merly Gasca [facility]#: [id number] : 1980Acct:[id number] Age/Sex: 38 / FDate of Service: 08/01/18 Loc: ED Accession Number: [id number] Procedure: XR knee RT 3V Ordering Provider: Pamella Kinney D.O. PROCEDURE: XR KNEE RT 3V INDICATIONS: twist and felt pop, difficulty bearing weight. TECHNIQUE: 3 views of the knee were acquired. COMPARISON: [facility], KNEE 3V RIGHT, 02/27/2010, 19:46. [facility], , KNEE 3V RIGHT, 04/22/2016, 23:46. FINDINGS: Bones: No fractures or dislocations. No suspicious bony lesions. On the sunrise view, there is moderate lateral patellofemoral joint space narrowing seen. Osteophyte formation can be seen along the margins of the patella. Soft tissues: There is a mild joint effusion. No suspicious soft tissue calcifications. IMPRESSION: No acute bony abnormality can be seen. On these images, there is moderate lateral patellofemoral joint space narrowing seen. If it would be helpful for clinical management decision making, please consider a dedicated MRI for further evaluation (assuming that there is no contraindication). Dictated by: Hi Waters M.D. on 08/01/2018 at 10:45 Approved by: Hi Waters M.D. on 08/01/2018 at 10:46 Discharge Plan Departure Patient Disposition: Home Clinical Impression: Internal derangement of right knee Discharge Date/Time: 08/01/18 13:28 Interventions: ED Discharge Assessment Last Done: 08/01/18 13:28 Instructions: DI for Osteoarthritis, DI for Meniscal Tear Activity Restrictions/Additional Instructions: please keep the weight off of your knee for now. If it is feeling better over the next few days, you can put a little bit of weight on it with the crutches, but continue to use the crutches as well as the Rosalino wraps for stability. Please put 2 of the lidocaine patches on your knee under the Rosalino wraps during the day to help with pain. You can wear those for 12 hr daily. Take the meloxicam once daily to help with pain and swelling (stop your other NSAIDs). you may also wish to try adding Tylenol arthritis Strength (8 hr) which is a lower dose than taking extra-strength Tylenol more frequently. Take 1 tab every 6-8 hours in addition to the meloxicam and patches as needed for pain. Call Orthopedics when you leave here today and let them know you were seen in the emergency room and need to set up a follow-up appointment. I have written you a note to be off work for the next few days, as maybe you can get in with them this week. You can do light duty as we talked about at work, but avoid a lot of walking and especially pivoting and twisting. Prescriptions: New meloxicam 15 mg tablet 15 mg PO DAILY Qty: 14 RF: 0 lidocaine 5 % adhesive patch,medicated 2 patch TOP DAILY Qty: 30 RF: 0 No Action ondansetron 4 mg tablet,disintegrating 4 mg PO Q6-8H PRN (Reason: nausea and vomiting) Qty: 10 RF: 0 pantoprazole [Protonix] 40 mg tablet,delayed release (DR/EC) 40 mg PO DAILY Qty: 30 RF: 2 oxycodone-acetaminophen [Percocet] 5-325 mg tablet 1 tab PO Q4-6H PRN (Reason: pain) Qty: 20 RF: 0 omeprazole 20 mg Capsule,Delayed Release(Dr/Ec) 20 mg PO DAILY RF: 0 naproxen sodium [Aleve] 220 mg Capsule 2 tab PO DAILY PRN (Reason: pain) RF: 0 acetaminophen 500 mg capsule 500 mg PO Q4-6H PRN (Reason: pain) Qty: 30 RF: 0 medroxyprogesterone 10 mg tablet RF: 0 Referrals: Jw Cardona MD [Primary Care Provider] - Jeronimo Coombs MD [Physician] - Stand Alone Forms: Work Release Note <Pamella Kinney DO - Last Filed: 08/02/18 12:05> Cosign ED Attending Garoature Attestation: I was immediately available in the department for consultation. Documentation has been reviewed. I agree with assessment and plan.
[2018-08-01] MEDS: IBUPROFEN 400 MG TABLET 800 MG PO (12:30)
[2018-08-01] MEDS: LIDOCAINE PATCH 1 EACH ADH..PATCH 2 EACH TOP (13:15)
[2018-08-01 13:28] VITALS: BP 130/68; PULSE 88; RESP 18; O2SAT 99
== END 2018-08-01 13:28 | disposition home or self-care (01) ==
PROVIDERS: Emergency Provider Internal Medicine; PCP Internal Medicine
DX: M23.91 Unspecified internal derangement of right knee (principal)
CPT/HCPCS: 73562; 99282; 99283

== ENCOUNTER 2018-08-03 20:57 | Emergency (ER) | payer OTHER, MEDICAID, SELFPAY ==
[2018-08-03 21:05] VITALS: BP 120/60; PULSE 102; RESP 26; TEMP 36.6; O2SAT 98; BMI 55.7
--- NOTE | 2018-08-03 21:17 | ED_ITS ---
HPI - Chest Pain General Chief Complaint: Chest Pain Stated Complaint: Neuro syncope Time Seen by Provider: 08/03/18 21:05 Source: patient Mode of arrival: ambulatory Limitations: no limitations History of Present Illness HPI narrative: patient is a 38-year-old female here for evaluation after she was walking down the aisle the grocery store when she states that she started to feel a sharp pain left side of her neck. she then started to feel tingling in her fingers. She states she felt hot. Started to get tunnel vision. She states she sat down on a bench before she passed out. She did bend over and put her head between her legs. The symptoms did seem to resolve. She did states she was having a pounding heartbeat at that time. She states she has had panic attacks in the past with this felt different from prior panic attacks. By the time she arrived here in the emergency department she was still having tenderness in the left side of her chest. Related Data Home Medications Medication Instructions Recorded Confirmed naproxen sodium [Aleve] 2 tab PO DAILY PRN 11/03/17 02/08/18 omeprazole 20 mg PO DAILY 11/03/17 02/08/18 medroxyprogesterone 08/01/18 Previous Rx's Medication Instructions Recorded ondansetron 4 mg disintegrating 4 mg PO Q6-8H PRN #10 tab 01/20/18 tablet acetaminophen 500 mg PO Q4-6H PRN #30 cap 04/11/18 pantoprazole 40 mg tablet,delayed 40 mg PO DAILY #30 tab 05/04/18 release oxycodone-acetaminophen 5 mg-325 1 tab PO Q4-6H PRN #20 tab 05/25/18 mg tablet lidocaine 2 patch TOP DAILY #30 each 08/01/18 meloxicam 15 mg PO DAILY #14 tab 08/01/18 lorazepam [Ativan] 1 mg PO BID-TID PRN #7 tab 08/03/18 Allergies Allergy/AdvReac Type Severity Reaction Status Date / Time Penicillins [PENICILLINS] Allergy Intermediate HIVES, Verified 04/30/18 12:46 difficulty breathing amoxicillin [AMOXICILLIN] Allergy Mild HIVES, Verified 08/01/18 10:53 difficulty breathing hydrocodone [From Vicodin] AdvReac Mild Nausea Verified 08/01/18 10:53 ibuprofen [From Motrin] AdvReac Gastrointestinal Verified 08/01/18 10:53 Upset Review of Systems Constitutional Denies fatigue and Denies headache(s) ENT Ears, Nose, Mouth, and Throat: Denies vertigo, Reports dizziness, Denies headache(s) and Reports disequilibrium Cardiovascular Reports chest pain, Denies syncope, Reports rapid heart rate, Reports palpitations and Denies dyspnea Respiratory Denies dyspnea and Denies wheezing Gastrointestinal Gastrointestinal: Denies abdominal pain, Denies nausea and Denies vomiting Genitourinary Denies dysuria Musculoskeletal Denies myalgias, Denies arthralgias and Reports tingling Integumentary/Breasts Denies rash Neurologic Denies behavioral changes, Denies burning sensations, Denies confusion, Denies vertigo, Reports dizziness, Denies syncope, Denies headache(s), Denies convulsions, Reports tingling and Reports disequilibrium Psychiatric Denies behavioral changes and Denies confusion Endocrine Denies fatigue and Reports palpitations Hematologic/Lymphatic Comments: Not on blood thinners Allergic/Immunologic Denies wheezing [facility] Social History household members: significant other and family Smoking Status: Current every day smoker alcohol intake: current Exam Initial Vital Signs Initial Vital Signs: Vital Signs Temperature 98 F 08/03/18 21:05 Pulse Rate 102 H 08/03/18 21:05 Respiratory Rate 26 H 08/03/18 21:05 Blood Pressure 120/60 08/03/18 21:05 Pulse Oximetry 98 08/03/18 21:05 Const General: cooperative, healthy appearing, comfortable, well developed, well groomed and No acute distress Orientation: alert, awake and oriented x3 [facility] Head: normal to inspection and normocephalic Chest Chest: normal inspection of the chest, No tenderness and No rash Resp Effort & Inspection: normal respiratory effort Auscultation: clear to auscultation bilaterally Cardio Rate: regular rate Rhythm: regular rhythm Pulses: radial pulses present GI Inspection: non-distended Palpation: soft and No firm Skin Lesions: no lesions Rashes: no rashes Neuro General: alert, awake and oriented x3 Cognition: normal cognition Speech: speech normal Motor: muscle tone normal throughout Sensory Exam: no sensory deficits noted Extrem General: normal to inspection and capillary refill normal Psych Appearance: grossly normal and well kempt Scores HEART Score Heart Score history: Slightly Suspicious Heart Score EKG: Normal Heart Score Age: < 45 years old Heart Score risk factors: No known risk factors Heart Score troponin: < or = to normal limit Heart Score Total: 0 PERC Score Age greater than or equal to 50 years: No Heart rate greater than or equal to 100 bpm: No Room Air O2 Sat less than 95%: No Unilateral leg swelling: No Recent trauma or surgery: No Hemoptysis: No Prior PE or DVT: No Hormone Use: No Total PERC Score: 0 Wells' Criteria for PE Clinical signs and symptoms of PE: No PE is #1 Dx or equally likely: No Heart rate > 100: No Immobilization at least 3 days or surg in previous 4 weeks: No History of PE or DVT: No Hemoptysis: No Malignancy w/Treatment within 6 months or palliative: No Wells' PE Score total: 0 Course Orders Ordered: ED Orders 08/03/18 22:07 XR chest 1V Stat 08/03/18 22:20 Basic Metabolic Panel Stat Complete Blood Count AUTO DIFF Stat Test Serum,Qual Stat Troponin I Stat Vital Signs - 8 hr 08/03/18 21:05 08/03/18 21:30 08/03/18 22:07 Temperature 98 F Pulse Rate 102 H 99 H 90 Respiratory Rate 26 H 15 19 Blood Pressure 120/60 Blood Pressure [Left Arm] 122/70 115/65 Pulse Oximetry 98 100 99 08/03/18 23:00 Temperature Pulse Rate 80 Respiratory Rate 21 Blood Pressure Blood Pressure [Left Arm] 126/57 L Pulse Oximetry 98 MDM - Chest Pain Lab Data Attestation: I reviewed the patient's lab results. Result diagrams: 08/03/18 22:20 08/03/18 22:20 Lab Results 08/03/18 08/03/18 08/03/18 Range/Units 22:20 22:20 22:20 WBC 10.4 (4.5-11.0) X10^3/uL RBC 4.72 (4.0-5.2) X10^6/uL Hgb 13.3 (12.0-16.0) g/dL Hct 39.6 (36-46) % MCV 83.8 (80-100) fL MCH 28.2 (26-34) PG MCHC 33.7 (30-36) % RDW 13.5 (11.6-14.8) % Plt Count 253 (150-400) X10^3/uL Neut % (Auto) 75.8 H (50-75) % Lymph % (Auto) 16.1 L (25-40) % [place] % (Auto) 5.6 (3-14) % Eos % (Auto) 1.8 L (2-4) % Baso % (Auto) 0.7 (0-2) % Neut # (Auto) 7900 H (1952-4754) /uL Lymph # (Auto) 1700 (2379-7976) /uL [place] # (Auto) 600 (0-900) /uL Eos # (Auto) 200 (0-450) /uL Baso # (Auto) 100 (0-100) /uL Sodium 140 (137-145) mmol/L Potassium 3.8 (3.4-5.1) mmol/L Chloride 103 (98-107) mmol/L Carbon Dioxide 27 (22-32) mmol/L BUN 15 (7-17) mg/dL Creatinine 0.70 (0.52-1.04) mg/dL Estimated GFR > 60.0 (>60) mL/min BUN/Creatinine Ratio 21.4 (6-22) Glucose 102 H (70-100) mg/dL Calcium 8.7 (8.4-10.2) mg/dL Troponin I < 0.012 (0.01-0.034) ng/mL Serum , Qual Negative (Negative) Imaging Data Chest x-ray: Attestation: I personally reviewed and interpreted this imaging study as follows: My impression: decreased lung volumes however no acute process. No focal consolidation. ECG Data Attestation: I personally reviewed and interpreted this ECG as follows: Prior ECG tracings: not available for review Interpretation: Sinus rhythm ventricular rate of 97 normal axis Normal QRS normal QTC no ST T wave changes MDM Narrative Medical decision making narrative: patient's episode while she was walking down the aisle at the grocery store sounds very much like a vasovagal episode. She did have a sharp pain in her neck just prior to the episode. Her workup here in the emergency department was negative. She is low risk for ACS. Low risk for pulmonary embolism. I do suspect that there is an anxiety component to her symptoms. Will hold on further workup for now. Provided reassurance and return precautions. Patient expressed understanding and agreement with plan. Discharge Plan Departure Patient Disposition: Home Clinical Impression: Atypical chest pain, Pre-syncope Instructions: DI for Atypical Chest Pain Activity Restrictions/Additional Instructions: recommend you continue all of your medications. Contact your primary care doctor for a follow-up. Return to the emergency department for any new or worsening symptoms Prescriptions: New lorazepam [Ativan] 1 mg tablet 1 mg PO BID-TID PRN (Reason: anxiety) Qty: 7 RF: 0 No Action ondansetron 4 mg tablet,disintegrating 4 mg PO Q6-8H PRN (Reason: nausea and vomiting) Qty: 10 RF: 0 pantoprazole [Protonix] 40 mg tablet,delayed release (DR/EC) 40 mg PO DAILY Qty: 30 RF: 2 oxycodone-acetaminophen [Percocet] 5-325 mg tablet 1 tab PO Q4-6H PRN (Reason: pain) Qty: 20 RF: 0 omeprazole 20 mg Capsule,Delayed Release(Dr/Ec) 20 mg PO DAILY RF: 0 naproxen sodium [Aleve] 220 mg Capsule 2 tab PO DAILY PRN (Reason: pain) RF: 0 acetaminophen 500 mg capsule 500 mg PO Q4-6H PRN (Reason: pain) Qty: 30 RF: 0 medroxyprogesterone 10 mg tablet RF: 0 meloxicam 15 mg tablet 15 mg PO DAILY Qty: 14 RF: 0 lidocaine 5 % adhesive patch,medicated 2 patch TOP DAILY Qty: 30 RF: 0 Referrals: Jw Cardona MD [Primary Care Provider] -
[2018-08-03 21:30] VITALS: BP 122/70; PULSE 99; RESP 15; O2SAT 100
[2018-08-03 22:07] VITALS: BP 115/65; PULSE 90; RESP 19; O2SAT 99
--- NOTE | 2018-08-03 22:07 | DI.RAD.S_ITS ---
PROCEDURE: XR CHEST 1V INDICATIONS: chest pain TECHNIQUE: One view of the chest was acquired. COMPARISON: [facility], , CHEST 1 VIEW, 07/12/2016, 14:32. FINDINGS: Surgical changes and devices: None. Lungs and pleura: Lungs are clear. No pleural effusions or pneumothorax. Mediastinum: Mediastinal contours appear normal. Heart size is normal. Bones and chest wall: No suspicious bony lesions. Overlying soft tissues appear unremarkable. IMPRESSION: No acute cardiopulmonary disease. Dictated by: Calderon Fraga M.D. on 08/04/2018 at 9:06 Approved by: Calderon Fraga M.D. on 08/04/2018 at 9:07
[2018-08-03 22:31] LABS: Add Manual Diff / Slide Review NO; Basophils Absolute Auto 100 /uL (0-100); Basophils Percent Auto 0.7 % (0-2); Eosinophils Absolute Auto 200 /uL (0-450); Eosinophils Percent Auto 1.8 % (2-4); Hematocrit 39.6 % (36-46); Hemoglobin 13.3 g/dL (12.0-16.0); Lymphocytes Absolute Auto 1700 /uL (1100-4500); Lymphocytes Percent Auto 16.1 % (25-40); Mean Corpuscular HGB Conc 33.7 % (30-36); Mean Corpuscular Hemoglobin 28.2 PG (26-34); Mean Corpuscular Volume 83.8 fL (80-100); Monocytes Absolute Auto 600 /uL (0-900); Monocytes Percent Auto 5.6 % (3-14); Neutrophils Absolute Auto 7900 /uL (1500-7000); Neutrophils Percent Auto 75.8 % (50-75); Platelet Count 253 X10^3/uL (150-400); Red Blood Cell Count 4.72 X10^6/uL (4.0-5.2); Red Cell Distribution Width 13.5 % (11.6-14.8); White Blood Cell Count 10.4 X10^3/uL (4.5-11.0)
[2018-08-03 22:41] LABS: BUN Creatinine Ratio 21.4 (6-22); Blood Urea Nitrogen 15 mg/dL (7-17); Calcium 8.7 mg/dL (8.4-10.2); Carbon Dioxide 27 mmol/L (22-32); Chloride 103 mmol/L (98-107); Estimated Glomerular Filt Rate > 60.0 mL/min (>60); Glucose 102 mg/dL (70-100); HEMOLYSIS 27 (0-50); Potassium 3.8 mmol/L (3.4-5.1); Sodium 140 mmol/L (137-145)
[2018-08-03 22:53] LABS: Troponin I < 0.012 ng/mL (0.01-0.034)
[2018-08-03 22:54] LABS: Pregnancy Test Serum,Qual Negative (Negative)
[2018-08-03 23:00] VITALS: BP 126/57; PULSE 80; RESP 21; O2SAT 98
[2018-08-03] MEDS: LORazepam 1 MG TABLET PO (23:49)
[2018-08-03 23:54] VITALS: BP 119/51; PULSE 84; RESP 18; O2SAT 99
== END 2018-08-04 00:06 | disposition home or self-care (01) ==
PROVIDERS: Emergency Provider Emergency Medicine; Family Provider Internal Medicine; PCP Internal Medicine
DX: R07.89 Other chest pain (principal); R55 Syncope and collapse
CPT/HCPCS: 36591; 71045; 80048; 84484; 84703; 85025; 93005; 93010; 99283; 99285

== ENCOUNTER 2018-08-10 18:03 | Emergency (ER) | payer OTHER, MEDICAID, SELFPAY ==
--- NOTE | 2018-08-10 18:17 | DI.RAD.S_ITS ---
PROCEDURE: XR CHEST 1V INDICATIONS: chest pain TECHNIQUE: One view of the chest was acquired. COMPARISON: [facility], [place], CHEST 1 VIEW, 07/12/2016, 14:32. [facility], [place], XR CHEST 1V, 08/03/2018, 22:10. FINDINGS: Surgical changes and devices: None. Lungs and pleura: Lungs are clear. No pleural effusions or pneumothorax. Mediastinum: Mediastinal contours appear normal. Heart size is normal. Bones and chest wall: No suspicious bony lesions. Overlying soft tissues appear unremarkable. IMPRESSION: No acute process. Dictated by: oJse Antonio Rodriguez M.D. on 08/10/2018 at 18:30 Approved by: Jose Antonio Rodriguez M.D. on 08/10/2018 at 18:31
[2018-08-10 18:20] VITALS: BP 129/66; PULSE 85; RESP 16; O2SAT 100
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
--- NOTE | 2018-08-10 18:49 | DI.CT.S_ITS ---
PROCEDURE: CT HEAD/BRAIN WO CON INDICATIONS: left arm numbness TECHNIQUE: Noncontrast 4.5 mm thick angled axial sections acquired from the foramen magnum to the vertex, with coronal and sagittal reformats. For radiation dose reduction, the following was used: automated exposure control, adjustment of mA and/or kV according to patient size. COMPARISON: None. FINDINGS: Image quality: Excellent. CSF spaces: Basal cisterns are patent. No extra-axial fluid collections. Ventricles are normal in size and shape. Brain: No midline shift. No intracranial masses or hemorrhage. Arguello-white matter interface is normal. Skull and face: Calvarium and visualized facial bones are intact, without suspicious lesions. Sinuses: Visualized sinuses and mastoids are clear. IMPRESSION: No acute intracranial abnormality. Dictated by: Jose Antonio Rodriugez M.D. on 08/10/2018 at 19:36 Approved by: Jose Antonio Rodriguez M.D. on 08/10/2018 at 19:37
--- NOTE | 2018-08-10 18:49 | DI.CT.S_ITS ---
PROCEDURE: CT CERVICAL SPINE WO CON INDICATIONS: left arm umbness TECHNIQUE: Noncontrast 3 mm thick sections acquired from the skull base to the T4 level. Sagittal and coronal reformats were then constructed. For radiation dose reduction, the following was used: automated exposure control, adjustment of mA and/or kV according to patient size. COMPARISON: None. FINDINGS: Image quality: Excellent. Bones: No fractures or dislocations. Moderate diffuse kyphosis. Visualized superior ribs are intact. Soft tissues: Prevertebral soft tissues are normal in thickness. No paravertebral hematomas. No apical pneumothoraces. Right-sided aortic arch. IMPRESSION: 1. No fracture. Moderate diffuse kyphosis. 2. Right-sided aortic arch. Dictated by: Jose Antonio Rodriguez M.D. on 08/10/2018 at 19:37 Approved by: Jose Antonio Rodriguez M.D. on 08/10/2018 at 19:38
[2018-08-10 18:50] LABS: Add Manual Diff / Slide Review NO; Basophils Absolute Auto 100 /uL (0-100); Basophils Percent Auto 0.9 % (0-2); Eosinophils Absolute Auto 300 /uL (0-450); Eosinophils Percent Auto 3.5 % (2-4); Hematocrit 39.1 % (36-46); Lymphocytes Absolute Auto 2300 /uL (1100-4500); Mean Corpuscular HGB Conc 33.3 % (30-36); Mean Corpuscular Hemoglobin 28.4 PG (26-34); Mean Corpuscular Volume 85.4 fL (80-100); Monocytes Absolute Auto 600 /uL (0-900); Monocytes Percent Auto 8.5 % (3-14); Neutrophils Absolute Auto 4200 /uL (1500-7000); Neutrophils Percent Auto 56.1 % (50-75); Platelet Count 220 X10^3/uL (150-400); Red Blood Cell Count 4.58 X10^6/uL (4.0-5.2); Red Cell Distribution Width 13.6 % (11.6-14.8); White Blood Cell Count 7.5 X10^3/uL (4.5-11.0)
[2018-08-10 19:00] VITALS: BP 123/63; PULSE 88; RESP 17; O2SAT 98
[2018-08-10 19:02] LABS: Alanine Aminotransferase 27 IU/L (9-52); Albumin 3.9 g/dL (3.5-5.0); Albumin Globulin Ratio 1.3 (1.0-2.8); Alkaline Phosphatase 67 U/L (38-126); Aspartate Aminotransferase 16 IU/L (14-36); BUN Creatinine Ratio 23.3 (6-22); Bilirubin Total 0.3 mg/dL (0.2-1.3); Blood Urea Nitrogen 14 mg/dL (7-17); Calcium 8.9 mg/dL (8.4-10.2); Carbon Dioxide 30 mmol/L (22-32); Chloride 104 mmol/L (98-107); Creatine Kinase 48 U/L (30-135); Estimated Glomerular Filt Rate > 60.0 mL/min (>60); Globulin 3.1 g/dL (1.7-4.1); Glucose 109 mg/dL (70-100); HEMOLYSIS < 15 (0-50); Potassium 3.9 mmol/L (3.4-5.1); Sodium 141 mmol/L (137-145)
[2018-08-10 19:14] LABS: Troponin I < 0.012 ng/mL (0.01-0.034)
[2018-08-10 19:58] LABS: D Dimer < 200 ng/mL (<230)
[2018-08-10 20:23] VITALS: BP 107/58; PULSE 82; RESP 19; O2SAT 98
[2018-08-10 20:40] VITALS: BP 110/48; PULSE 83; RESP 15; O2SAT 98
== END 2018-08-10 20:40 | disposition home or self-care (01) ==
PROVIDERS: Emergency Provider Emergency Medicine; Family Provider Internal Medicine; PCP Internal Medicine
DX: R20.2 Paresthesia of skin (principal)
CPT/HCPCS: 36415; 70450; 71045; 72125; 80053; 82550; 84484; 85025; 85379; 93005; 93010; 99283; 99285

== ENCOUNTER → 2018-08-19 13:35 | Outpatient (CLI) | payer OTHER, SELFPAY ==
--- NOTE | 2018-08-19 | DI.MRI.S_ITS ---
PROCEDURE: MR KNEE RT WO CON INDICATIONS: RIGHT KNEE PAIN TECHNIQUE: Noncontrast sagittal PD fast spin echo and T2 fast spin echo with fat saturation, sagittal 3-D FLASH with fat saturation; coronal T1 spin echo and PD fast spin echo with fat saturation, and axial PD fast spin echo with fat saturation through the knee. COMPARISON: None. FINDINGS: Image quality: Suboptimal evaluation due to body habitus and motion artifact. Menisci: Medial meniscal tear involving the body with partial extrusion and abnormal signal extending to the inferior articular surface. There is also radial component involving the posterior horn which is best seen on image 27 series 13. Subtle lateral meniscal tear involving the body with abnormal signal extending to the superior articular surface. Cruciate ligaments: The anterior and posterior cruciate ligaments appear intact. Medial structures: The medial collateral ligament appears intact. There is mild adjacent soft tissue edema raising possibility of low-grade sprain versus reactive to meniscal pathology. The posterior oblique ligament, semimembranosus tendon insertions, oblique popliteal ligament, and meniscocapsular junction appear intact. Visualized portions of the pes anserinus tendons appear normal. No abnormal bursal fluid. Lateral structures: The lateral collateral ligament, long and short heads of the biceps femoris tendon appear intact. The popliteus tendon appears normal; the popliteofibular ligament appears intact. The posterosuperior and anteroinferior popliteomeniscal fascicles appear intact. The arcuate and fabellofibular ligaments appear intact, on either side of the lateral inferior geniculate artery. Iliotibial band appears normal. Anterior structures: The quadriceps and patellar tendons appear intact. There is prepatellar and superficial infrapatellar subcutaneous edema. Patellar alignment is normal. No femoral trochlear dysplasia or ventral trochlear prominence. No edema in the infrapatellar fat pad. Bones and cartilage: No focal marrow contusion or discrete low signal fracture line. Within the medial and lateral compartment, no definite articular cartilage defect. Within the patellofemoral compartment, area of near full-thickness loss of the cartilage overlying the median patellar ridge. There is mild underlying subchondral marrow signal change. There is also full-thickness fissuring of the central femoral trochlear cartilage. Joint space: There is physiologic knee joint fluid. No Rodriguez's cyst. IMPRESSION: Medial meniscal tear involving the posterior horn and body, with partial extrusion. Subtle nondisplaced lateral meniscal tear involving the body. Patellofemoral joint degeneration as above. Dictated by: Andre Recio M.D. on 08/19/2018 at 16:24 Approved by: Andre Recio M.D. on 08/19/2018 at 16:33
== END ==
PROVIDERS: PCP Internal Medicine; Visit Provider Orthopaedic Surgery
DX: M25.561 Pain in right knee (principal); S83.281A Other tear of lateral meniscus, current injury, right knee, initial encounter; S83.241A Other tear of medial meniscus, current injury, right knee, initial encounter; M17.11 Unilateral primary osteoarthritis, right knee
CPT/HCPCS: 73721

== ENCOUNTER 2018-08-24 15:48 | Emergency (ER) | payer OTHER, SELFPAY | END 2018-08-24 16:49 | disposition left against medical advice (07) | PROVIDERS: Emergency Provider Emergency Medicine; PCP Internal Medicine | CPT/HCPCS: 99281 ==

== ENCOUNTER 2018-11-05 13:37 | Emergency (ER) | payer OTHER, MEDICAID, SELFPAY ==
[2018-11-05] VITALS (10 sets, daily range): BP systolic 116–146; BP diastolic 49–79; PULSE 68–98; RESP 11–19; O2SAT 97–100; BMI 56.5
--- NOTE | 2018-11-05 13:45 | DI.RAD.S_ITS ---
PROCEDURE: XR CHEST 1V INDICATIONS: chest pain TECHNIQUE: One view of the chest was acquired. COMPARISON: [facility], CR, XR CHEST 1V, 08/10/2018, 18:23. FINDINGS: Surgical changes and devices: None. Lungs and pleura: Lungs are clear. No pleural effusions or pneumothorax. Mediastinum: Mediastinal contours appear normal. Heart size is normal. Bones and chest wall: No suspicious bony lesions. Overlying soft tissues appear unremarkable. IMPRESSION: Stable chest. No acute cardiopulmonary process is suspected. Dictated by: Med Alonso M.D. on 11/05/2018 at 13:28 Approved by: Med Alonso M.D. on 11/05/2018 at 13:29
[2018-11-05 14:08] LABS: Add Manual Diff / Slide Review NO; Basophils Absolute Auto 100 /uL (0-100); Eosinophils Absolute Auto 200 /uL (0-450); Eosinophils Percent Auto 2.7 % (2-4); Hematocrit 38.9 % (36-46); Hemoglobin 13.4 g/dL (12.0-16.0); Lymphocytes Absolute Auto 2400 /uL (1100-4500); Lymphocytes Percent Auto 31.3 % (25-40); Mean Corpuscular HGB Conc 34.5 % (30-36); Mean Corpuscular Hemoglobin 28.7 PG (26-34); Monocytes Absolute Auto 400 /uL (0-900); Monocytes Percent Auto 5.1 % (3-14); Neutrophils Absolute Auto 4500 /uL (1500-7000); Neutrophils Percent Auto 59.9 % (50-75); Platelet Count 241 X10^3/uL (150-400); Red Blood Cell Count 4.69 X10^6/uL (4.0-5.2); Red Cell Distribution Width 13.4 % (11.6-14.8); White Blood Cell Count 7.5 X10^3/uL (4.5-11.0)
[2018-11-05 14:10] LABS: Prothrombin Time 11.5 SECONDS (10.1-12.7)
[2018-11-05 14:13] LABS: PTT Partial Thromboplastin Tim 36 SECONDS (26.4-36.2)
[2018-11-05 14:31] LABS: BUN Creatinine Ratio 21.4 (6-22); Blood Urea Nitrogen 15 mg/dL (7-17); Calcium 9.3 mg/dL (8.4-10.2); Carbon Dioxide 27 mmol/L (22-32); Chloride 104 mmol/L (98-107); Creatine Kinase 86 U/L (30-135); Estimated Glomerular Filt Rate > 60.0 mL/min (>60); Glucose 120 mg/dL (70-100); Potassium 3.6 mmol/L (3.4-5.1); Sodium 138 mmol/L (137-145); Troponin I < 0.012 ng/mL (0.01-0.034)
[2018-11-05 14:32] LABS: Alanine Aminotransferase 12 IU/L (9-52); Albumin 4.1 g/dL (3.5-5.0); Albumin Globulin Ratio 1.4 (1.0-2.8); Alkaline Phosphatase 69 U/L (38-126); Aspartate Aminotransferase 17 IU/L (14-36); Bilirubin Total 0.5 mg/dL (0.2-1.3); HEMOLYSIS < 15 (0-50); Lipase 81 U/L (23-300); Total Protein 7.1 g/dL (6.3-8.2)
--- NOTE | 2018-11-05 14:42 | ED_ITS ---
HPI - Arrhythmia/Palpitations <Marika Mccannmer, [employer] - Last Filed: 11/05/18 19:59> General Chief Complaint: Arrhythmia/Palpitations Stated Complaint: PALPITATIONS/ALMOST PASSED OUT Time Seen by Provider: 11/05/18 14:30 Source: patient Mode of arrival: ambulatory Limitations: no limitations History of Present Illness HPI narrative: The patient is a 38-year-old female current everyday smoker who presents with a chief complaint of chest pain, shortness of breath, palpitations. She states they started today. She complains of some associated dizziness. She denies any vomiting diarrhea abdominal pain. She complains of slight nausea. She states she has had multiple episodes of this, often attributed to anxiety. She states she has follow-up scheduled with a psychologist early this month. She denies any fevers, cough, congestion or URI symptoms. She states she has not taken anything to feel better. The patient states she is concerned that she is having a panic attack. She states she has these on occasion. Of note she tried to wean herself off of her preventative medications yesterday. Related Data Home Medications Medication Instructions Recorded Confirmed naproxen sodium [Aleve] 2 tab PO DAILY PRN 11/03/17 11/05/18 omeprazole 20 mg PO DAILY 11/03/17 11/05/18 medroxyprogesterone 08/01/18 Previous Rx's Medication Instructions Recorded ondansetron 4 mg disintegrating 4 mg PO Q6-8H PRN #10 tab 01/20/18 tablet acetaminophen 500 mg PO Q4-6H PRN #30 cap 04/11/18 pantoprazole 40 mg tablet,delayed 40 mg PO DAILY #30 tab 05/04/18 release oxycodone-acetaminophen 5 mg-325 1 tab PO Q4-6H PRN #20 tab 05/25/18 mg tablet lidocaine 2 patch TOP DAILY #30 each 08/01/18 meloxicam 15 mg PO DAILY #14 tab 08/01/18 alprazolam 0.25 mg tablet 0.25 mg PO .q6 prn #20 tab 08/08/18 hydroxyzine HCl 25 mg PO TID-QID PRN #30 tab 11/05/18 Allergies Allergy/AdvReac Type Severity Reaction Status Date / Time Penicillins [PENICILLINS] Allergy Intermediate HIVES, Verified 11/05/18 13:40 difficulty breathing amoxicillin [AMOXICILLIN] Allergy Mild HIVES, Verified 11/05/18 13:40 difficulty breathing hydrocodone [From Vicodin] AdvReac Mild Nausea Verified 11/05/18 13:40 ibuprofen [From Motrin] AdvReac Gastrointestinal Verified 11/05/18 13:40 Upset Review of Systems <[facility] - Last Filed: 11/05/18 19:59> Review of Systems GENERAL: Denies chills, fatigue, malaise, fever, sweats. HEENT: Denies sinus pain, ear pain, sore throat, difficulty swallowing, dizziness. RESPIRATORY: Denies dyspnea, cough, wheezing, hemoptysis, sputum. CARDIOVASCULAR: See HPI GASTROINTESTINAL: Denies nausea, vomiting, abdominal pain, diarrhea, constipation, melena. : Denies dysuria, frequency, incontinence, hematuria, urinary retention. MUSCULOSKELETAL: denies weakness, joint pain, or bony pain SKIN: Denies rash, skin lesions, or other NEUROLOGIC: Denies weakness, headache, numbness, change in speech, confusion, seizures, incoordination. PSYCHIATRIC: No concerning psychosocial issues. 12 point review of systems is negative except for those stated above PFSH <[facility] - Last Filed: 11/05/18 19:59> Social History household members: significant other and family Smoking Status: Current every day smoker alcohol intake: current Exam <[facility] - Last Filed: 11/05/18 19:59> Narrative Exam Narrative: GENERAL: obese female lying on stretcher, anxious appearing HEAD: Atraumatic. Normocephalic. No temporal or scalp tenderness. EYES: Pupils equal round and reactive. Extraocular motions intact. No scleral icterus. No injection or drainage. ENT: Nose without bleeding, purulent drainage or septal hematoma. Throat without erythema, tonsillar hypertrophy or exudate. Uvula midline. Airway patent. NECK: Trachea midline. No JVD or lymphadenopathy. Supple, nontender, no meningeal signs. CARDIOVASCULAR: Regular rate and rhythm without murmurs, gallops, or rubs. RESPIRATORY: Clear to auscultation. Breath sounds equal bilaterally. No wheezes, rales, or rhonchi. No cough. No increased respiratory effort. No accessory muscle use. No stridor GASTROINTESTINAL: Abdomen soft, non-tender, nondistended. No hepato- splenomegaly, or palpable masses. No guarding. EXTREMITIES: No clubbing, cyanosis, or edema. No joint tenderness, effusion, or edema noted. BACK: Nontender without deformity or crepitance. No flank tenderness. NEURO: AOx3. SKIN: No rash or erythema. Initial Vital Signs Initial Vital Signs: Vital Signs Pulse Rate 98 H 11/05/18 14:05 Respiratory Rate 18 11/05/18 14:05 Blood Pressure 119/79 11/05/18 14:05 Pulse Oximetry 100 11/05/18 14:05 <Marika Sloan DO - Last Filed: 11/06/18 07:26> Initial Vital Signs Initial Vital Signs: Vital Signs Pulse Rate 98 H 11/05/18 14:05 Respiratory Rate 18 11/05/18 14:05 Blood Pressure 119/79 11/05/18 14:05 Pulse Oximetry 100 11/05/18 14:05 Scores <MARIBEL Mcgarry - Last Filed: 11/05/18 19:59> HEART Score Heart Score history: Slightly Suspicious Heart Score EKG: Normal Heart Score Age: < 45 years old Heart Score risk factors: No known risk factors Heart Score troponin: < or = to normal limit Heart Score Total: 0 PERC Score Age greater than or equal to 50 years: No Heart rate greater than or equal to 100 bpm: No Room Air O2 Sat less than 95%: No Unilateral leg swelling: No Recent trauma or surgery: No Hemoptysis: No Prior PE or DVT: No Hormone Use: No Total PERC Score: 0 Wells' Criteria for PE Clinical signs and symptoms of PE: No PE is #1 Dx or equally likely: No Heart rate > 100: No Immobilization at least 3 days or surg in previous 4 weeks: No History of PE or DVT: No Hemoptysis: No Malignancy w/Treatment within 6 months or palliative: No Wells' PE Score total: 0 Course <MARIBEL Mcgarry - Last Filed: 11/05/18 19:59> Orders Ordered: Discontinued Medications Hydroxyzine Pamoate (Vistaril) 50 mg PO NOW ONE Stop: 11/05/18 17:33 Last Admin: 11/05/18 17:43 Dose: 50 mg Ketorolac Tromethamine (Toradol) 30 mg IV NOW ONE Stop: 11/05/18 15:33 Last Admin: 11/05/18 15:40 Dose: 30 mg Lorazepam (Ativan) 1 mg PO NOW ONE Stop: 11/05/18 14:40 Last Admin: 11/05/18 14:44 Dose: 1 mg Vital Signs - 8 hr 11/05/18 14:05 11/05/18 14:30 11/05/18 15:00 Pulse Rate 98 H 77 88 Respiratory Rate 18 16 19 Blood Pressure [Right Arm] 119/79 133/72 139/75 Pulse Oximetry 100 100 99 11/05/18 15:30 11/05/18 16:00 11/05/18 16:30 Pulse Rate 85 80 77 Respiratory Rate 16 13 18 Blood Pressure [Right Arm] 138/70 142/63 H 146/64 H Pulse Oximetry 98 98 98 11/05/18 17:00 11/05/18 17:30 11/05/18 18:06 Pulse Rate 70 76 68 Respiratory Rate 12 17 18 Blood Pressure [Right Arm] 140/49 L 138/59 L 116/66 Pulse Oximetry 97 98 99 11/05/18 18:30 Pulse Rate 76 Respiratory Rate 13 Blood Pressure [Right Arm] 118/67 Pulse Oximetry 98 <Marika Sloan DO - Last Filed: 11/06/18 07:26> Orders Ordered: Discontinued Medications Hydroxyzine Pamoate (Vistaril) 50 mg PO NOW ONE Stop: 11/05/18 17:33 Last Admin: 11/05/18 17:43 Dose: 50 mg Ketorolac Tromethamine (Toradol) 30 mg IV NOW ONE Stop: 11/05/18 15:33 Last Admin: 11/05/18 15:40 Dose: 30 mg Lorazepam (Ativan) 1 mg PO NOW ONE Stop: 11/05/18 14:40 Last Admin: 11/05/18 14:44 Dose: 1 mg Vital Signs - 8 hr 11/05/18 14:05 11/05/18 14:30 11/05/18 15:00 Pulse Rate 98 H 77 88 Respiratory Rate 18 16 19 Blood Pressure [Right Arm] 119/79 133/72 139/75 Pulse Oximetry 100 100 99 11/05/18 15:30 11/05/18 16:00 11/05/18 16:30 Pulse Rate 85 80 77 Respiratory Rate 16 13 18 Blood Pressure [Right Arm] 138/70 142/63 H 146/64 H Pulse Oximetry 98 98 98 11/05/18 17:00 11/05/18 17:30 11/05/18 18:06 Pulse Rate 70 76 68 Respiratory Rate 12 17 18 Blood Pressure [Right Arm] 140/49 L 138/59 L 116/66 Pulse Oximetry 97 98 99 11/05/18 18:30 Pulse Rate 76 Respiratory Rate 13 Blood Pressure [Right Arm] 118/67 Pulse Oximetry 98 MDM - Arrhythmia/Palpitations <Marika Pressley, [employer]ER[employer]MAN[employer] - Last Filed: 11/05/18 19:59> Lab Data Result diagrams: 11/05/18 13:56 11/05/18 13:56 Lab Results 11/05/18 11/05/18 11/05/18 Range/Units 13:56 13:56 13:56 WBC 7.5 (4.5-11.0) X10^3/uL RBC 4.69 (4.0-5.2) X10^6/uL Hgb 13.4 (12.0-16.0) g/dL Hct 38.9 (36-46) % MCV 83.0 (80-100) fL MCH 28.7 (26-34) PG MCHC 34.5 (30-36) % RDW 13.4 (11.6-14.8) % Plt Count 241 (150-400) X10^3/uL Neut % (Auto) 59.9 (50-75) % Lymph % (Auto) 31.3 (25-40) % [place] % (Auto) 5.1 (3-14) % Eos % (Auto) 2.7 (2-4) % Baso % (Auto) 1.0 (0-2) % Neut # (Auto) 4500 (0323-8917) /uL Lymph # (Auto) 2400 (6372-9811) /uL [place] # (Auto) 400 (0-900) /uL Eos # (Auto) 200 (0-450) /uL Baso # (Auto) 100 (0-100) /uL PT 11.5 (10.1-12.7) SECONDS INR 1.0 (0.9-1.3) APTT 36 (26.4-36.2) SECONDS Sodium 138 (137-145) mmol/L Potassium 3.6 (3.4-5.1) mmol/L Chloride 104 (98-107) mmol/L Carbon Dioxide 27 (22-32) mmol/L BUN 15 (7-17) mg/dL Creatinine 0.70 (0.52-1.04) mg/dL Estimated GFR > 60.0 (>60) mL/min BUN/Creatinine Ratio 21.4 (6-22) Glucose 120 H (70-100) mg/dL Calcium 9.3 (8.4-10.2) mg/dL Total Bilirubin 0.5 (0.2-1.3) mg/dL AST 17 (14-36) IU/L ALT 12 (9-52) IU/L Alkaline Phosphatase 69 (38-126) U/L Total Creatine Kinase 86 (30-135) U/L CK-MB (CK-2) TNP CK-MB (CK-2) Rel Index TNP Troponin I < 0.012 (0.01-0.034) ng/mL Total Protein 7.1 (6.3-8.2) g/dL Albumin 4.1 (3.5-5.0) g/dL Globulin 3.0 (1.7-4.1) g/dL Albumin/Globulin Ratio 1.4 (1.0-2.8) Lipase 81 (23-300) U/L Urine RBC (0-5/HPF) Urine WBC (0-5/HPF) Urine Bacteria (None) Ur Culture Indicated? Urine Test (Negative) 11/05/18 11/05/18 11/05/18 Range/Units 15:16 15:16 16:54 WBC (4.5-11.0) X10^3/uL RBC (4.0-5.2) X10^6/uL Hgb (12.0-16.0) g/dL Hct (36-46) % MCV (80-100) fL MCH (26-34) PG MCHC (30-36) % RDW (11.6-14.8) % Plt Count (150-400) X10^3/uL Neut % (Auto) (50-75) % Lymph % (Auto) (25-40) % [place] % (Auto) (3-14) % Eos % (Auto) (2-4) % Baso % (Auto) (0-2) % Neut # (Auto) (3271-8261) /uL Lymph # (Auto) (4091-5506) /uL [place] # (Auto) (0-900) /uL Eos # (Auto) (0-450) /uL Baso # (Auto) (0-100) /uL PT (10.1-12.7) SECONDS INR (0.9-1.3) APTT (26.4-36.2) SECONDS Sodium (137-145) mmol/L Potassium (3.4-5.1) mmol/L Chloride (98-107) mmol/L Carbon Dioxide (22-32) mmol/L BUN (7-17) mg/dL Creatinine (0.52-1.04) mg/dL Estimated GFR (>60) mL/min BUN/Creatinine Ratio (6-22) Glucose (70-100) mg/dL Calcium (8.4-10.2) mg/dL Total Bilirubin (0.2-1.3) mg/dL AST (14-36) IU/L ALT (9-52) IU/L Alkaline Phosphatase (38-126) U/L Total Creatine Kinase 81 (30-135) U/L CK-MB (CK-2) TNP CK-MB (CK-2) Rel Index TNP Troponin I < 0.012 (0.01-0.034) ng/mL Total Protein (6.3-8.2) g/dL Albumin (3.5-5.0) g/dL Globulin (1.7-4.1) g/dL Albumin/Globulin Ratio (1.0-2.8) Lipase (23-300) U/L Urine RBC None seen (0-5/HPF) Urine WBC None seen (0-5/HPF) Urine Bacteria None seen (None) Ur Culture Indicated? Culture not indicate Urine Test Negative (Negative) Urine Dip Bedside Urine Glucose Negative Bedside Urine Bilirubin - Negative Bedside Urine Ketone - Negative Urine Specific [place] 1.020 Bedside Urine Occult Blood +/- Bedside Urine pH 7.5 Bedside Urine Protein - Negative Bedside Urine Urobilinogen - Negative Bedside Urine Nitrite - Negative Bedside Urine Leukocytes - Negative Esterase Imaging Data Chest x-ray: Radiologist's impression: Mrely Gasca 38 F [address] [address] XRay Report Signed Patient: Merly Gasca [facility]#: [id number] : 1980Acct:[id number] Age/Sex: 38 / FDate of Service: 11/05/18 Loc: ED Accession Number: [id number] Procedure: XR chest 1V Ordering Provider: Marika Sloan D.O. PROCEDURE: XR CHEST 1V INDICATIONS: chest pain TECHNIQUE: One view of the chest was acquired. COMPARISON: Merged With [facility], , XR CHEST 1V, 08/10/2018, 18:23. FINDINGS: Surgical changes and devices: None. Lungs and pleura: Lungs are clear. No pleural effusions or pneumothorax. Mediastinum: Mediastinal contours appear normal. Heart size is normal. Bones and chest wall: No suspicious bony lesions. Overlying soft tissues appear unremarkable. IMPRESSION: Stable chest. No acute cardiopulmonary process is suspected. Dictated by: Med Alonso M.D. on 11/05/2018 at 13:28 Approved by: Med Alonso M.D. on 11/05/2018 at 13:29 ECG Data Interpretation: Sinus tachycardia. Ventricular rate 104. No ectopy noted. No ST elevation or depression. Viewed by Dr Sloan. [facility] Narrative Medical decision making narrative: The patient is a 38-year-old female presents with chief complaint of chest pain shortness of most likely anxiety. She has a negative chest x-ray. She has 2 normal cardiac enzyme sets. Overall her blood work is normal. She responded well in the emergency department and anxiety medication. She stated her pain went away. I did discuss at length that she has follow-up with primary care provider as planned. Discussed going back to emergency department for any acute concerns such as chest pain, shortness of breath. I did give her prescription of Vistaril <Marika Sloan, - Last Filed: 11/06/18 07:26> Lab Data Attestation: I reviewed the patient's lab results. Lab Results 11/05/18 11/05/18 11/05/18 Range/Units 13:56 13:56 13:56 WBC 7.5 (4.5-11.0) X10^3/uL RBC 4.69 (4.0-5.2) X10^6/uL Hgb 13.4 (12.0-16.0) g/dL Hct 38.9 (36-46) % MCV 83.0 (80-100) fL MCH 28.7 (26-34) PG MCHC 34.5 (30-36) % RDW 13.4 (11.6-14.8) % Plt Count 241 (150-400) X10^3/uL Neut % (Auto) 59.9 (50-75) % Lymph % (Auto) 31.3 (25-40) % [place] % (Auto) 5.1 (3-14) % Eos % (Auto) 2.7 (2-4) % Baso % (Auto) 1.0 (0-2) % Neut # (Auto) 4500 (8167-6818) /uL Lymph # (Auto) 2400 (2596-0389) /uL [place] # (Auto) 400 (0-900) /uL Eos # (Auto) 200 (0-450) /uL Baso # (Auto) 100 (0-100) /uL PT 11.5 (10.1-12.7) SECONDS INR 1.0 (0.9-1.3) APTT 36 (26.4-36.2) SECONDS Sodium 138 (137-145) mmol/L Potassium 3.6 (3.4-5.1) mmol/L Chloride 104 (98-107) mmol/L Carbon Dioxide 27 (22-32) mmol/L BUN 15 (7-17) mg/dL Creatinine 0.70 (0.52-1.04) mg/dL Estimated GFR > 60.0 (>60) mL/min BUN/Creatinine Ratio 21.4 (6-22) Glucose 120 H (70-100) mg/dL Calcium 9.3 (8.4-10.2) mg/dL Total Bilirubin 0.5 (0.2-1.3) mg/dL AST 17 (14-36) IU/L ALT 12 (9-52) IU/L Alkaline Phosphatase 69 (38-126) U/L Total Creatine Kinase 86 (30-135) U/L CK-MB (CK-2) TNP CK-MB (CK-2) Rel Index TNP Troponin I < 0.012 (0.01-0.034) ng/mL Total Protein 7.1 (6.3-8.2) g/dL Albumin 4.1 (3.5-5.0) g/dL Globulin 3.0 (1.7-4.1) g/dL Albumin/Globulin Ratio 1.4 (1.0-2.8) Lipase 81 (23-300) U/L Urine RBC (0-5/HPF) Urine WBC (0-5/HPF) Urine Bacteria (None) Ur Culture Indicated? Urine Test (Negative) 11/05/18 11/05/18 11/05/18 Range/Units 15:16 15:16 16:54 WBC (4.5-11.0) X10^3/uL RBC (4.0-5.2) X10^6/uL Hgb (12.0-16.0) g/dL Hct (36-46) % MCV (80-100) fL MCH (26-34) PG MCHC (30-36) % RDW (11.6-14.8) % Plt Count (150-400) X10^3/uL Neut % (Auto) (50-75) % Lymph % (Auto) (25-40) % [place] % (Auto) (3-14) % Eos % (Auto) (2-4) % Baso % (Auto) (0-2) % Neut # (Auto) (9080-3014) /uL Lymph # (Auto) (9965-6069) /uL [place] # (Auto) (0-900) /uL Eos # (Auto) (0-450) /uL Baso # (Auto) (0-100) /uL PT (10.1-12.7) SECONDS INR (0.9-1.3) APTT (26.4-36.2) SECONDS Sodium (137-145) mmol/L Potassium (3.4-5.1) mmol/L Chloride (98-107) mmol/L Carbon Dioxide (22-32) mmol/L BUN (7-17) mg/dL Creatinine (0.52-1.04) mg/dL Estimated GFR (>60) mL/min BUN/Creatinine Ratio (6-22) Glucose (70-100) mg/dL Calcium (8.4-10.2) mg/dL Total Bilirubin (0.2-1.3) mg/dL AST (14-36) IU/L ALT (9-52) IU/L Alkaline Phosphatase (38-126) U/L Total Creatine Kinase 81 (30-135) U/L CK-MB (CK-2) TNP CK-MB (CK-2) Rel Index TNP Troponin I < 0.012 (0.01-0.034) ng/mL Total Protein (6.3-8.2) g/dL Albumin (3.5-5.0) g/dL Globulin (1.7-4.1) g/dL Albumin/Globulin Ratio (1.0-2.8) Lipase (23-300) U/L Urine RBC None seen (0-5/HPF) Urine WBC None seen (0-5/HPF) Urine Bacteria None seen (None) Ur Culture Indicated? Culture not indicate Urine Test Negative (Negative) Urine Dip Bedside Urine Glucose Negative Bedside Urine Bilirubin - Negative Bedside Urine Ketone - Negative Urine Specific [place] 1.020 Bedside Urine Occult Blood +/- Bedside Urine pH 7.5 Bedside Urine Protein - Negative Bedside Urine Urobilinogen - Negative Bedside Urine Nitrite - Negative Bedside Urine Leukocytes - Negative Esterase ECG Data Attestation: I personally reviewed and interpreted this ECG as follows: Prior ECG tracings: available for review Interpretation: sinus tachycardia rate of 105, pr of 164, qrs of 85, qtc 448. NO ST elevation or depression. Prior from 08/10/[address] segments, was sinus rhythm. Discharge Plan Departure Patient Disposition: Home Clinical Impression: Atypical chest pain, Anxiety Discharge Date/Time: 11/05/18 19:13 Interventions: ED Discharge Assessment Last Done: 11/05/18 19:12 Instructions: DI for Atypical Chest Pain, DI for Anxiety -- Adult Activity Restrictions/Additional Instructions: Your EKG was good today. Your workup was overall normal. I have given you a prescription of antianxiety medications. Please come back to the for any acute concerns such as chest pain, shortness of breath. In the future do not immediately sees using your anxiety prevention medication. Please follow up with primary care provider as we discussed. Please come back to the emergency department for any acute concerns. Prescriptions: New hydroxyzine HCl 25 mg tablet 25 mg PO TID-QID PRN (Reason: anxiety) Qty: 30 RF: 0 No Action ondansetron 4 mg tablet,disintegrating 4 mg PO Q6-8H PRN (Reason: nausea and vomiting) Qty: 10 RF: 0 alprazolam 0.25 mg tablet 0.25 mg PO .q6 prn Qty: 20 RF: 0 pantoprazole [Protonix] 40 mg tablet,delayed release (DR/EC) 40 mg PO DAILY Qty: 30 RF: 2 oxycodone-acetaminophen [Percocet] 5-325 mg tablet 1 tab PO Q4-6H PRN (Reason: pain) Qty: 20 RF: 0 omeprazole 20 mg Capsule,Delayed Release(Dr/Ec) 20 mg PO DAILY RF: 0 naproxen sodium [Aleve] 220 mg Capsule 2 tab PO DAILY PRN (Reason: pain) RF: 0 acetaminophen 500 mg capsule 500 mg PO Q4-6H PRN (Reason: pain) Qty: 30 RF: 0 medroxyprogesterone 10 mg tablet RF: 0 meloxicam 15 mg tablet 15 mg PO DAILY Qty: 14 RF: 0 lidocaine 5 % adhesive patch,medicated 2 patch TOP DAILY Qty: 30 RF: 0 Referrals: Jw Cardona MD [Primary Care Provider] - Stand Alone Forms: Work Release Note <Marika Sloan DO - Last Filed: 11/06/18 07:26> Cosign ED Attending Cosignature Attestation: I was immediately available in the department for consultation. This documentation has been reviewed and I agree with assessment and plan. Supervised by Marika Sloan DO
[2018-11-05] MEDS: LORazepam 0.5 MG TABLET 1 MG PO (14:44)
[2018-11-05 15:18] LABS: Bacteria Urine None Seen; RBC Urine None Seen (0-5/HPF); WBC Urine None Seen (0-5/HPF)
[2018-11-05] MEDS: KETOROLAC 60 MG/2 ML VIAL 30 MG IV (15:40)
[2018-11-05 16:00] LABS: Pregnancy Test Urine Negative (Negative)
[2018-11-05 17:24] LABS: Creatine Kinase 81 U/L (30-135)
[2018-11-05 17:37] LABS: Troponin I < 0.012 ng/mL (0.01-0.034)
[2018-11-05] MEDS: hydrOXYzine pamoate 25 MG CAPSULE 50 MG PO (17:43)
== END 2018-11-05 19:13 | disposition home or self-care (01) ==
PROVIDERS: Emergency Medicine; Emergency Provider Nurse Practitioner Family; PCP Internal Medicine
DX: R07.89 Other chest pain (principal); F41.9 Anxiety disorder, unspecified
CPT/HCPCS: 36591; 71045; 80053; 81003; 81015; 81025; 82550; 83690; 84484; 85025; 85610; 85730; 93005; 96374; 99285; J1885

== ENCOUNTER 2018-11-23 11:57 | Day surgery (SDC) | payer OTHER, SELFPAY ==
[2018-11-17 12:35] VITALS: BMI 58.2
[2018-11-23] VITALS (8 sets, daily range): BP systolic 105–134; BP diastolic 61–86; PULSE 63–102; RESP 10–16; TEMP 36.2–36.6; O2SAT 94–100; BMI 59.8
[2018-11-23] MEDS: MIDAZOLAM 2 MG/2 ML VIAL IV (12:53)
--- NOTE | 2018-11-23 12:53 | PM.PREOP ---
Pre-operative Note Interval Note History & Physical reviewed/Exam performed by Physician: Yes Changes to H&P: No
[2018-11-23] MEDS: LACTATED RINGERS 1,000 ML 42 ML IV (12:55)
[2018-11-23] MEDS: FAMOTIDINE 20 MG/50 ML PIGGYBACK 200 MG IV (12:57)
--- NOTE | 2018-11-23 13:19 | PM.OP.1 ---
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 The nature of the procedure including the risks and benefits, alternatives, postoperative course and expected outcome were discussed and all questions answered. Consent was obtained. Operative site confirmed and marked. Surgeon: Elgin Mccoy Click Yes if Unassisted: Yes Anesthesia Type: General Operative Notes Findings: Examination under anesthesia was unremarkable. Arthroscopic evaluation revealed complex degenerative tearing of the posterior horn of the medial meniscus. This was trimmed to a stable rim with the basket and shaver. There was also grade 3 and grade 4 chondromalacia of the medial femoral condyle weight-bearing area. This was lightly debrided with a shaver. The patella also showed central grade 3 and grade 4 chondromalacia with some loose fragments. A light chondroplasty was also performed of the patella. Patellofemoral tracking was otherwise normal. The lateral compartment was pristine with no significant osteoarthritis or meniscal tearing. Medial lateral gutters and suprapatellar pouch were unremarkable. Closure Type: primary Specimen(s): none sent Estimated Blood Loss (mL): 5 Blood products transfused: none Tourniquet time (min): 10 Procedure in detail: The patient was taken to the operative suite and given prophylactic antibiotics. Examination under anesthesia was performed. The leg was then prepped and draped in usual sterile fashion. The leg was exsanguinated with an Esmarch dressing and the tourniquet raised to 300 torr. The portal sites were anesthetized with 1% lidocaine with epinephrine and then established with an 11 blade. Medial and lateral parapatellar working portals were utilized. The scope was placed into the medial portal and into the lateral compartment of the knee. The knee was placed in the figure 4 position. The knee was then allowed to hang down at 90? and the notch evaluated. The knee was then extended and the scope switched to the lateral portal and placed up in the anterior compartment. The patellofemoral joint, medial gutter, lateral gutter and suprapatellar pouch were inspected. A valgus force was then placed across the knee over lateral stress post and the medial compartment was evaluated. See specific findings and procedures above. The arthroscopy was completed and the knee drained. The knee was filled with 30 mL of 0.5% ropivacaine and 4 of morphine. The portal sites were closed with Steri-Strips. A sterile gauze and Rosalino wrap dressing was applied. The patient tolerated procedure well and was returned to recovery room in good condition. Complications: none Condition: stable Disposition: same day surgery Plan for aftercare: Rest the knee for 1-2 days. May then progress activity as tolerated.
[2018-11-23] MEDS: CLINDAMYCIN 900 MG/50 ML PIGGYBACK 50 MG IV (13:20)
[2018-11-23] MEDS: LIDOCAINE 1% W/EPI INJ 20 ML INJ (14:04)
[2018-11-23] MEDS: ROPIVACAINE 0.5% PF 5 MG/ML 20ML VIAL 10 ML INJ (14:05)
[2018-11-23] MEDS: MAG HYDROX/ALUM/SIMETH 30 ML UDC PO (14:14)
[2018-11-23] MEDS: fentaNYL 100 MCG/2 ML INJ 50 MCG IV ×2 (14:16→14:34)
[2018-11-23] MEDS: hydrOXYzine 50 MG/ML INJ 25 MG IM (14:22)
--- NOTE | 2018-11-23 14:31 | SUR.PHASEI ---
Pt c/o stomach acid upon arrival to pac[facility]. Medicated with Maalox per Dr. Wolfe.
[2018-11-23] MEDS: OXYCODONE/ACETAMINOPHEN 5/325 TABLET 1 TAB PO (14:42)
--- NOTE | 2018-11-23 15:37 | SUR.PHASEII ---
1525 Pt reported her chest feeling tight or tired. Reported having this sensation in the past after surgery. VS stable, o2 sat 100%RA. Dr. Tsang notified and will evaluate pt. Pt notified-sitting up, smiling and talking with family.
--- NOTE | 2018-11-23 15:54 | SUR.PHASEII ---
Dr. Tsang evaluated pt. Pt reported heaviness resolved. Ok for pt to d/c per Dr. Tsang.
== END 2018-11-23 15:57 | disposition home or self-care (01) ==
PROVIDERS: PCP Internal Medicine; Visit Provider Orthopaedic Surgery
PROC: (CPT 29870; principal; 2018-11-23 14:45)
DX: S83.241A Other tear of medial meniscus, current injury, right knee, initial encounter (principal); S83.281A Other tear of lateral meniscus, current injury, right knee, initial encounter; M94.261 Chondromalacia, right knee; X50.1XXA Overexertion from prolonged static or awkward postures, initial encounter; Y92.512 Supermarket, store or market as the place of occurrence of the external cause; Y99.0 Civilian activity done for income or pay
CPT/HCPCS: 29881; J1100; J2250; J2405; J2704; J3010; J3410

== ENCOUNTER 2019-02-02 20:33 | Emergency (ER) | payer OTHER, MEDICAID, SELFPAY ==
[2019-02-02 20:42] VITALS: BP 150/86; PULSE 86; RESP 17; TEMP 36.6; O2SAT 98; BMI 58.7
--- NOTE | 2019-02-02 20:46 | DI.RAD.S_ITS ---
PROCEDURE: XR CHEST 1V INDICATIONS: chest pain TECHNIQUE: One view of the chest was acquired. COMPARISON: None. FINDINGS: Surgical changes and devices: None. Lungs and pleura: Lungs are clear. No pleural effusions or pneumothorax. Mediastinum: Mediastinal contours appear normal. Heart size is normal. Bones and chest wall: No suspicious bony lesions. Overlying soft tissues appear unremarkable. IMPRESSION: No acute cardiopulmonary findings. Dictated by: Renu Reed M.D. on 02/02/2019 at 21:26 Approved by: Renu Reed M.D. on 02/02/2019 at 21:26
[2019-02-02 21:07] LABS: Add Manual Diff / Slide Review NO; Basophils Absolute Auto 100 /uL (0-100); Basophils Percent Auto 1.1 % (0-2); Eosinophils Absolute Auto 200 /uL (0-450); Eosinophils Percent Auto 2.4 % (2-4); Hematocrit 43.8 % (36-46); Hemoglobin 14.9 g/dL (12.0-16.0); Lymphocytes Absolute Auto 3000 /uL (1100-4500); Lymphocytes Percent Auto 37.3 % (25-40); Mean Corpuscular HGB Conc 34.1 % (30-36); Mean Corpuscular Hemoglobin 28.3 PG (26-34); Mean Corpuscular Volume 82.9 fL (80-100); Monocytes Absolute Auto 600 /uL (0-900); Monocytes Percent Auto 7.3 % (3-14); Neutrophils Absolute Auto 4100 /uL (1500-7000); Neutrophils Percent Auto 51.9 % (50-75); Platelet Count 266 X10^3/uL (150-400); Red Blood Cell Count 5.28 X10^6/uL (4.0-5.2); Red Cell Distribution Width 13.5 % (11.6-14.8); White Blood Cell Count 7.9 X10^3/uL (4.5-11.0)
[2019-02-02 21:09] LABS: Prothrombin Time 11.5 SECONDS (10.1-12.7)
[2019-02-02 21:12] LABS: PTT Partial Thromboplastin Tim 38 SECONDS (26.4-36.2)
[2019-02-02 21:14] LABS: Alanine Aminotransferase 16 IU/L (9-52); Albumin 4.4 g/dL (3.5-5.0); Albumin Globulin Ratio 1.3 (1.0-2.8); Alkaline Phosphatase 71 U/L (38-126); Aspartate Aminotransferase 22 IU/L (14-36); BUN Creatinine Ratio 14.3 (6-22); Bilirubin Total 0.4 mg/dL (0.2-1.3); Blood Urea Nitrogen 10 mg/dL (7-17); Calcium 9.6 mg/dL (8.4-10.2); Carbon Dioxide 28 mmol/L (22-32); Chloride 102 mmol/L (98-107); Creatine Kinase 56 U/L (30-135); Estimated Glomerular Filt Rate > 60.0 mL/min (>60); Globulin 3.4 g/dL (1.7-4.1); Glucose 112 mg/dL (70-100); HEMOLYSIS < 15 (0-50); Lipase 80 U/L (23-300); Sodium 141 mmol/L (137-145); Total Protein 7.8 g/dL (6.3-8.2)
[2019-02-02 21:26] LABS: Troponin I < 0.012 ng/mL (0.01-0.034)
--- NOTE | 2019-02-02 22:37 | ED_ITS ---
HPI - Anxiety General Chief Complaint: Anxiety Stated Complaint: PANIC ATTACK, CHEST PAIN Time Seen by Provider: 02/02/19 22:39 Source: patient Mode of arrival: ambulatory Limitations: no limitations History of Present Illness HPI narrative: Patient is a 38-year-old female who presents with heart palpitations and anxiety. She has a history of anxiety she has been here a couple of times for atypical chest pain and anxiety. She says she woke up in panic. In feels like her heart is irregular she had feels sweaty and diaphoretic at times. Denies any shortness of breath. MD complaint: anxiety and heart racing Related Data Home Medications Medication Instructions Recorded Confirmed naproxen sodium [Aleve] 2 tab PO DAILY PRN 11/03/17 11/23/18 omeprazole 20 mg PO DAILY 11/03/17 11/23/18 alprazolam 0.25 mg PO .q6 prn PRN 11/23/18 11/23/18 Previous Rx's Medication Instructions Recorded ondansetron 4 mg disintegrating 4 mg PO Q6-8H PRN #10 tab 01/20/18 tablet oxycodone-acetaminophen 5 mg-325 1 tab PO Q4-6H PRN #20 tab 05/25/18 mg tablet hydroxyzine HCl 25 mg PO TID-QID PRN #30 tab 11/05/18 oxycodone 5 mg PO Q4-6H PRN #30 tab 11/23/18 metoprolol succinate 25 mg PO DAILY #30 tab 02/02/19 Allergies Allergy/AdvReac Type Severity Reaction Status Date / Time Penicillins [PENICILLINS] Allergy Intermediate HIVES, Verified 02/02/19 20:42 difficulty breathing amoxicillin [AMOXICILLIN] Allergy Mild HIVES, Verified 02/02/19 20:42 difficulty breathing hydrocodone [From Vicodin] AdvReac Mild Nausea Verified 02/02/19 20:42 ibuprofen [From Motrin] AdvReac Gastrointestinal Verified 02/02/19 20:42 Upset Review of Systems Review of Systems ROS Unobtainable: All systems reviewed & are unremarkable except as noted in HPI and below Constitutional Constitutional: Denies chills, Denies fever(s), Denies lethargy and Denies weakness Eyes Eyes: Denies change in vision, Denies eye discharge, Denies irritation and Denies loss of vision Cardiovascular Cardiovascular: Reports chest pain, Reports palpitations, Denies dyspnea and Denies dyspnea on exertion Respiratory Respiratory: Denies cough, Denies dyspnea, Denies dyspnea on exertion and Denies wheezing Gastrointestinal Gastrointestinal: Denies abdominal pain, Denies change in bowel habits, Denies diarrhea, Denies nausea and Denies vomiting Genitourinary Genitourinary: Denies hematuria, Denies flank pain, Denies urinary incontinence and Denies urinary urgency Musculoskeletal Musculoskeletal: Denies back pain, Denies muscle weakness, Denies numbness and Denies tingling Integumentary/Breasts Skin/Breast: Denies pruritus, Denies erythema, Denies rash and Denies wounds Neurologic Neurologic: Denies confusion, Denies loss of vision, Denies numbness, Denies tingling and Denies weakness Psychiatric Psychiatric: Reports anxiety, Denies confusion, Denies depression, Reports panic attacks, Denies homicidal ideation and Denies suicidal ideation Endocrine Endocrine: Reports palpitations Allergic/Immunologic Allergic/Immunologic: Denies wheezing [facility] Medical History Anxiety (Chronic) Depression (Chronic) GERD (gastroesophageal reflux disease) (Chronic) Migraines (Chronic) Palpitations (Acute) Panic attacks (Acute) Premature delivery before 37 weeks (Resolved 12/17/15) Prior miscarriage with in first trimester, antepartum (Resolved 1995) Visit for wound care (Resolved) Surgical History Encounter for management of vacuum-assisted closure (VAC) of wound (Resolved 12/28/15) History of colonoscopy (Resolved 2014) History of laparoscopic cholecystectomy (Resolved 11/09/17) Status post delivery (Resolved 12/17/15) Status post debridement (Resolved 12/25/15) Status post debridement (Resolved 12/26/15) Family History Grandfather Diabetes mellitus Other Breast cancer Gallstones Heart disease Hypertension Ovarian cancer Social History household members: significant other and family Smoking Status: Current every day smoker alcohol intake: current Family History Grandfather Diabetes mellitus Other Breast cancer Gallstones Heart disease Hypertension Ovarian cancer Social History household members: significant other and family Smoking Status: Current every day smoker alcohol intake: current Exam Initial Vital Signs Initial Vital Signs: Vital Signs Temperature 97.8 F 02/02/19 20:42 Pulse Rate 86 02/02/19 20:42 Respiratory Rate 17 02/02/19 20:42 Blood Pressure 150/86 H 02/02/19 20:42 Pulse Oximetry 98 02/02/19 20:42 GENERAL: Obese female and in no acute distress. HEENT: Head atraumatic,EOMI, pupils reactive, face symmetric, CARDIOVASCULAR: Regular rate and rhythm without murmurs, rubs or gallops. RESPIRATORY: Breath sounds equal bilaterally, no wheezes rales or rhonchi. ABDOMEN: Soft, nontender. Normoactive bowel sounds all 4 quadrants. No guarding or rebound. EXTREMITIES: Normal range of motion, no clubbing or edema. Neurovascularly intact NEUROLOGICAL: Alert and oriented x4.Normal gait and speech. Cranial nerves II through XII grossly intact. SKIN: Warm, dry, no laceration, no petechiae, no rashes or lesions. Scores CHADS-VASc Congestive heart failure: no Hypertension: no Age 75 years or older: no Diabetes mellitus: no Stroke, TIA, or TE: no Vascular disease: no Age 65 to 74 years: no Sex category (female): Female CHADS-VASc Score: 1 Course Orders Ordered: ED Orders 02/02/19 20:45 EKG-12 Lead Stat 02/02/19 20:46 XR chest 1V Stat 02/02/19 20:57 Complete Blood Count AUTO DIFF Stat Comprehensive Metabolic Panel Stat Lipase Stat Partial Thromboplastin Time Stat Prothrombin Time INR Stat Troponin & CK Cardiac Panel Stat 02/02/19 22:53 Urine Microscopic Stat 02/02/19 22:54 EKG-12 Lead Urgent Discontinued Medications Metoprolol Tartrate (Lopressor) 25 mg PO NOW ONE Stop: 02/02/19 23:08 Last Admin: 02/02/19 23:42 Dose: 25 mg Documented by: KAYODE Reevaluation(s) Reevaluation #1: The patient shows atrial flutter rate 80-100 on the monitor. She had just gotten up to use the restroom and back into bed when she felt heart palpitations a little dizzy lightheaded. She remained awake alert and oriented the entire time. She self converted back to normal sinus rhythm by the time EKG was done. She says that she has had these palpitation feelings off and on for some time. Time: 23:02 Vital Signs Vital signs: Vital Signs - 8 hr 02/02/19 20:42 02/02/19 23:03 02/03/19 00:06 Temperature 97.8 F Pulse Rate 86 78 67 Respiratory Rate 17 13 17 Blood Pressure 150/86 H Blood Pressure [Left Arm] 112/69 118/69 Pulse Oximetry 98 100 99 MDM - Anxiety Lab Data Attestation: I reviewed the patient's lab results. Result diagrams: 02/02/19 20:57 02/02/19 20:57 Labs: Lab Results 02/02/19 02/02/19 02/02/19 Range/Units 20:57 20:57 20:57 WBC 7.9 (4.5-11.0) X10^3/uL RBC 5.28 H (4.0-5.2) X10^6/uL Hgb 14.9 (12.0-16.0) g/dL Hct 43.8 (36-46) % MCV 82.9 (80-100) fL MCH 28.3 (26-34) PG MCHC 34.1 (30-36) % RDW 13.5 (11.6-14.8) % Plt Count 266 (150-400) X10^3/uL Neut % (Auto) 51.9 (50-75) % Lymph % (Auto) 37.3 (25-40) % [place] % (Auto) 7.3 (3-14) % Eos % (Auto) 2.4 (2-4) % Baso % (Auto) 1.1 (0-2) % Neut # (Auto) 4100 (2238-9018) /uL Lymph # (Auto) 3000 (5856-7630) /uL [place] # (Auto) 600 (0-900) /uL Eos # (Auto) 200 (0-450) /uL Baso # (Auto) 100 (0-100) /uL PT 11.5 (10.1-12.7) SECONDS INR 1.0 (0.9-1.3) APTT 38 H D (26.4-36.2) SECONDS Sodium 141 (137-145) mmol/L Potassium 4.0 (3.4-5.1) mmol/L Chloride 102 (98-107) mmol/L Carbon Dioxide 28 (22-32) mmol/L BUN 10 (7-17) mg/dL Creatinine 0.70 (0.52-1.04) mg/dL Estimated GFR > 60.0 (>60) mL/min BUN/Creatinine Ratio 14.3 (6-22) Glucose 112 H (70-100) mg/dL Calcium 9.6 (8.4-10.2) mg/dL Total Bilirubin 0.4 (0.2-1.3) mg/dL AST 22 (14-36) IU/L ALT 16 (9-52) IU/L Alkaline Phosphatase 71 (38-126) U/L Total Creatine Kinase 56 (30-135) U/L CK-MB (CK-2) TNP CK-MB (CK-2) Rel Index TNP Troponin I < 0.012 (0.01-0.034) ng/mL Total Protein 7.8 (6.3-8.2) g/dL Albumin 4.4 (3.5-5.0) g/dL Globulin 3.4 (1.7-4.1) g/dL Albumin/Globulin Ratio 1.3 (1.0-2.8) Lipase 80 (23-300) U/L Urine RBC (0-5/HPF) Urine WBC (0-5/HPF) Ur Squamous Epith Cells (0-5/HPF) Amorphous Sediment Urine Bacteria (None) Ur Culture Indicated? 02/02/19 Range/Units 22:53 WBC (4.5-11.0) X10^3/uL RBC (4.0-5.2) X10^6/uL Hgb (12.0-16.0) g/dL Hct (36-46) % MCV (80-100) fL MCH (26-34) PG MCHC (30-36) % RDW (11.6-14.8) % Plt Count (150-400) X10^3/uL Neut % (Auto) (50-75) % Lymph % (Auto) (25-40) % [place] % (Auto) (3-14) % Eos % (Auto) (2-4) % Baso % (Auto) (0-2) % Neut # (Auto) (1161-7623) /uL Lymph # (Auto) (0239-3149) /uL [place] # (Auto) (0-900) /uL Eos # (Auto) (0-450) /uL Baso # (Auto) (0-100) /uL PT (10.1-12.7) SECONDS INR (0.9-1.3) APTT (26.4-36.2) SECONDS Sodium (137-145) mmol/L Potassium (3.4-5.1) mmol/L Chloride (98-107) mmol/L Carbon Dioxide (22-32) mmol/L BUN (7-17) mg/dL Creatinine (0.52-1.04) mg/dL Estimated GFR (>60) mL/min BUN/Creatinine Ratio (6-22) Glucose (70-100) mg/dL Calcium (8.4-10.2) mg/dL Total Bilirubin (0.2-1.3) mg/dL AST (14-36) IU/L ALT (9-52) IU/L Alkaline Phosphatase (38-126) U/L Total Creatine Kinase (30-135) U/L CK-MB (CK-2) CK-MB (CK-2) Rel Index Troponin I (0.01-0.034) ng/mL Total Protein (6.3-8.2) g/dL Albumin (3.5-5.0) g/dL Globulin (1.7-4.1) g/dL Albumin/Globulin Ratio (1.0-2.8) Lipase (23-300) U/L Urine RBC 0-1/hpf (0-5/HPF) Urine WBC None seen (0-5/HPF) Ur Squamous Epith Cells 1-5 /hpf (0-5/HPF) Amorphous Sediment 2+ Urine Bacteria Few (2-10) H (None) Ur Culture Indicated? Cult not indicated Point of Care Testing Test Results Negative Urine Dip Bedside Urine Glucose 100 mg/dl Bedside Urine Bilirubin - Negative Bedside Urine Ketone +/- 5 Urine Specific [place] 1.010 Bedside Urine Occult Blood +/- Bedside Urine pH 8.0 Bedside Urine Protein +/- 15 Bedside Urine Urobilinogen +/- 1mg Bedside Urine Nitrite - Negative Bedside Urine Leukocytes - Negative Esterase Imaging Data Chest x-ray: Radiologist's impression: PROCEDURE: XR CHEST 1V INDICATIONS: chest pain TECHNIQUE: One view of the chest was acquired. COMPARISON: None. FINDINGS: Surgical changes and devices: None. Lungs and pleura: Lungs are clear. No pleural effusions or pneumothorax. Mediastinum: Mediastinal contours appear normal. Heart size is normal. Bones and chest wall: No suspicious bony lesions. Overlying soft tissues appear unremarkable. IMPRESSION: No acute cardiopulmonary findings. Dictated by: Renu Reed M.D. on 02/02/2019 at 21:26 ECG Data Attestation: I personally reviewed and interpreted this ECG as follows: Prior ECG tracings: available for review Interpretation: EKG 1. Normal sinus rhythm rate 89 p.r. interval 150 a QRS [address] changes no PACs or PVCs EKG 2. Some artifact noted but normal sinus rhythm rate 90 no changes from prior MDM Narrative Medical decision making narrative: Patient had a run of paroxysmal atrial fibrillation caught on the monitor while in the emergency department. She was symptomatic at the time as well. This is likely been causing irregular heartbeats and possibly contributing to her anxiety. Will start her on metoprolol. I recommend she take aspirin 81 mg once a day. Discharge Plan Departure Patient Disposition: Home Clinical Impression: Atrial flutter, paroxysmal Discharge Date/Time: 02/03/19 00:11 Instructions: Atrial Flutter Activity Restrictions/Additional Instructions: *You have been diagnosed with paroxysmal atrial fibrillation *What to do: I recommend to get a Holter monitor which her PCP can set up for you. This will identify any arrhythmia that he may be having. *Continue to take medications as directed Metoprolol 25 mg once day Aspirin 81 mg once daily *Follow up with your primary care provider in 2-3 days *Return to ER if you should have passing out, increasing palpitations, chest pain, shortness of breath or any new, worsening or concerning symptoms Prescriptions: New metoprolol succinate 25 mg tablet extended release 24 hr 25 mg PO DAILY Qty: 30 RF: 0 No Action ondansetron 4 mg tablet,disintegrating 4 mg PO Q6-8H PRN (Reason: nausea and vomiting) Qty: 10 RF: 0 oxycodone-acetaminophen [Percocet] 5-325 mg tablet 1 tab PO Q4-6H PRN (Reason: pain) Qty: 20 RF: 0 omeprazole 20 mg Capsule,Delayed Release(Dr/Ec) 20 mg PO DAILY RF: 0 naproxen sodium [Aleve] 220 mg Capsule 2 tab PO DAILY PRN (Reason: pain) RF: 0 hydroxyzine HCl 25 mg tablet 25 mg PO TID-QID PRN (Reason: anxiety) Qty: 30 RF: 0 alprazolam 0.25 mg tablet 0.25 mg PO .q6 prn PRN (Reason: Anxiety) RF: 0 oxycodone 5 mg tablet 5 mg PO Q4-6H PRN (Reason: pain) Qty: 30 RF: 0 Referrals: Jw Cardona MD [Primary Care Provider] -
[2019-02-02 22:54] LABS: WBC Urine None Seen (0-5/HPF)
[2019-02-02 23:03] VITALS: BP 112/69; PULSE 78; RESP 13; O2SAT 100
[2019-02-02 23:06] LABS: Amorphous Sediment Urine 2+; Bacteria Urine Few (2-10); Culture Indicated Urine Cult Not Indicated; RBC Urine 0-1/HPF (0-5/HPF); Squamous Epithelial Cell Urine 1-5 /HPF (0-5/HPF)
[2019-02-02] MEDS: METOPROLOL IR 25 MG TABLET PO (23:42)
[2019-02-03 00:06] VITALS: BP 118/69; PULSE 67; RESP 17; O2SAT 99
== END 2019-02-03 00:11 | disposition home or self-care (01) ==
PROVIDERS: Emergency Provider Emergency Medicine; PCP Internal Medicine
DX: I48.92 Unspecified atrial flutter (principal)
CPT/HCPCS: 36415; 71045; 80053; 81003; 81015; 81025; 82550; 83690; 84484; 85025; 85610; 85730; 93005; 99283; 99285

== ENCOUNTER 2019-02-04 21:05 | Emergency (ER) | payer OTHER, MEDICAID, SELFPAY ==
[2019-02-04 21:13] VITALS: BP 131/82; PULSE 71; RESP 18; TEMP 36.6; O2SAT 98
[2019-02-04 21:30] VITALS: BP 104/75; PULSE 64; RESP 18; O2SAT 99
--- NOTE | 2019-02-04 21:33 | DI.RAD.S_ITS ---
PROCEDURE: XR CHEST 1V INDICATIONS: chest pain TECHNIQUE: One view of the chest was acquired. COMPARISON: [facility], CR, XR CHEST 1V, 08/03/2018, 22:10. [facility], CR, XR CHEST 1V, 08/10/2018, 18:23. [facility], CR, XR CHEST 1V, 11/05/2018, 14:06. [facility], CR, XR CHEST 1V, 02/02/2019, 20:45. FINDINGS: Surgical changes and devices: None. Lungs and pleura: Lungs are clear. No pleural effusions or pneumothorax. Mediastinum: Mediastinal contours appear normal. Heart size is normal. Bones and chest wall: No suspicious bony lesions. Overlying soft tissues appear unremarkable. IMPRESSION: Portable chest within normal limits. Dictated by: Hi Waters M.D. on 02/05/2019 at 7:20 Approved by: Hi Waters M.D. on 02/05/2019 at 7:20
[2019-02-04 21:54] LABS: Add Manual Diff / Slide Review NO; Basophils Absolute Auto 100 /uL (0-100); Basophils Percent Auto 0.9 % (0-2); Eosinophils Absolute Auto 100 /uL (0-450); Eosinophils Percent Auto 1.5 % (2-4); Hemoglobin 14.2 g/dL (12.0-16.0); Lymphocytes Absolute Auto 2400 /uL (1100-4500); Lymphocytes Percent Auto 31.7 % (25-40); Mean Corpuscular HGB Conc 34.6 % (30-36); Mean Corpuscular Hemoglobin 28.6 PG (26-34); Mean Corpuscular Volume 82.8 fL (80-100); Monocytes Absolute Auto 600 /uL (0-900); Monocytes Percent Auto 7.8 % (3-14); Neutrophils Absolute Auto 4500 /uL (1500-7000); Neutrophils Percent Auto 58.1 % (50-75); Platelet Count 243 X10^3/uL (150-400); Red Blood Cell Count 4.96 X10^6/uL (4.0-5.2); Red Cell Distribution Width 13.4 % (11.6-14.8); White Blood Cell Count 7.7 X10^3/uL (4.5-11.0)
[2019-02-04 21:58] LABS: PTT Partial Thromboplastin Tim 35 SECONDS (26.4-36.2)
[2019-02-04 21:59] LABS: Alanine Aminotransferase 22 IU/L (9-52); Albumin 4.1 g/dL (3.5-5.0); Albumin Globulin Ratio 1.2 (1.0-2.8); Alkaline Phosphatase 68 U/L (38-126); Aspartate Aminotransferase 22 IU/L (14-36); BUN Creatinine Ratio 17.1 (6-22); Bilirubin Total 0.4 mg/dL (0.2-1.3); Blood Urea Nitrogen 12 mg/dL (7-17); Calcium 9.3 mg/dL (8.4-10.2); Carbon Dioxide 27 mmol/L (22-32); Chloride 105 mmol/L (98-107); Creatine Kinase 40 U/L (30-135); Estimated Glomerular Filt Rate > 60.0 mL/min (>60); Globulin 3.4 g/dL (1.7-4.1); Glucose 98 mg/dL (70-100); HEMOLYSIS 18 (0-50); Lipase 84 U/L (23-300); Magnesium 2.2 mg/dL (1.6-2.3); Potassium 3.9 mmol/L (3.4-5.1); Sodium 139 mmol/L (137-145); Total Protein 7.5 g/dL (6.3-8.2)
[2019-02-04 22:05] VITALS: BP 98/48; PULSE 66; RESP 14; O2SAT 98
[2019-02-04 22:11] LABS: Troponin I < 0.012 ng/mL (0.01-0.034)
[2019-02-04 22:30] VITALS: BP 119/74; PULSE 62; RESP 12; O2SAT 96
--- NOTE | 2019-02-04 22:42 | ED_ITS ---
HPI - Chest Pain General Chief Complaint: Chest Pain Stated Complaint: palpitations,dizziness,chest pressure Time Seen by Provider: 02/04/19 22:42 Source: patient and family (mother) Limitations: no limitations History of Present Illness HPI narrative: A 38-year-old female comes to the emergency department with complaint of palpitations, dizziness and chest pressure. Patient states that she has had palpitations and panic attacks on off for a long period of time. She was here on and was noted she had elevated rhythm that was irregular. It is noted in the narrative from her visit that she likely had approximates well atrial fibrillation and was started on metoprolol as well as aspirin 81 mg daily. Patient since then has been taking metoprolol 25 mg daily. She feels tight in her chest, it comes and goes. His although lightheaded, she has not had any syncope. She also feels it when she is lying down total nauseated but no vomiting. No issues with bowel movements or urination. She occasionally has hot flashes and feels sweaty. He will sometimes feel like she is short of breath. she takes alprazolam, Prilosec and oxycodone. She takes an aspirin 81 mg daily. She has had knee replacement in November, as well as a cholecystectomy about a year ago and a in 2015 which had a subsequent open abdominal infection that required several weeks of hospitalization to heal. Patient does still tobacco, denies alcohol or illicit. Her mom had a heart attack in her 60s and has known atrial fibrillation. Related Data Home Medications Medication Instructions Recorded Confirmed naproxen sodium [Aleve] 2 tab PO DAILY PRN 11/03/17 02/04/19 omeprazole 20 mg PO DAILY 11/03/17 02/04/19 alprazolam 0.25 mg PO .q6 prn PRN 11/23/18 02/04/19 aspirin [Adult Low Dose Aspirin] 81 mg PO DAILY 02/04/19 02/04/19 Previous Rx's Medication Instructions Recorded oxycodone 5 mg PO Q4-6H PRN #30 tab 11/23/18 metoprolol succinate 25 mg PO DAILY #30 tab 02/02/19 Allergies Allergy/AdvReac Type Severity Reaction Status Date / Time Penicillins [PENICILLINS] Allergy Intermediate HIVES, Verified 02/04/19 21:18 difficulty breathing amoxicillin [AMOXICILLIN] Allergy Mild HIVES, Verified 02/04/19 21:18 difficulty breathing hydrocodone [From Vicodin] AdvReac Mild Nausea Verified 02/04/19 21:18 ibuprofen [From Motrin] AdvReac Gastrointestinal Verified 02/04/19 21:18 Upset Review of Systems Review of Systems ROS Unobtainable: All systems reviewed & are unremarkable except as noted in HPI and below Constitutional Constitutional: Denies chills, Denies fever(s), Denies lethargy and Denies weakness Neurologic Neurologic: Denies weakness [facility] Medical History Anxiety (Chronic) Depression (Chronic) GERD (gastroesophageal reflux disease) (Chronic) Migraines (Chronic) Palpitations (Acute) Panic attacks (Acute) Premature delivery before 37 weeks (Resolved 12/17/15) Prior miscarriage with in first trimester, antepartum (Resolved 1995) Visit for wound care (Resolved) Surgical History Encounter for management of vacuum-assisted closure (VAC) of wound (Resolved 12/28/15) History of colonoscopy (Resolved 2014) History of laparoscopic cholecystectomy (Resolved 11/09/17) Status post delivery (Resolved 12/17/15) Status post debridement (Resolved 12/25/15) Status post debridement (Resolved 12/26/15) Family History Grandfather Diabetes mellitus Other Breast cancer Gallstones Heart disease Hypertension Ovarian cancer Social History household members: significant other and family Smoking Status: Current every day smoker alcohol intake: current Family History (Updated 02/05/19 @ 01:23 by Marika Sloan DO) Grandfather Diabetes mellitus Mother Heart attack Atrial fibrillation Other Breast cancer Gallstones Heart disease Hypertension Ovarian cancer Social History (Updated 02/05/19 @ 01:23 by Marika Sloan DO) household members: significant other and family Smoking Status: Current every day smoker alcohol intake: current substance use type: does not use Exam Narrative Exam Narrative: GENERAL: Alert and oriented x three, morbidly obese female in mild distress. HEENT: Head normocephalic, atraumatic, EOMI, pupils reactive, face symmetric, moist mucous membranes NECK: Supple, full range of motion CARDIOVASCULAR: Regular rate and rhythm without murmurs, rubs or gallops. No JVD. RESPIRATORY: Breath sounds equal bilaterally, no wheezes rales or rhonchi. No tachypnea or accessory muscle use. ABDOMEN: Soft, nontender. Normoactive bowel sounds all 4 quadrants. No guardi ng or rebound, rigidity, no mass : No CVA tenderness EXTREMITIES: Normal range of motion, no clubbing or edema. Neurovascularly intact NEUROLOGICAL: Cranial nerves II through XII grossly intact. Moving all extremities SKIN: Warm, dry, no petechiae, no rashes or lesions. Initial Vital Signs Initial Vital Signs: Vital Signs Temperature 97.9 F 02/04/19 21:13 Pulse Rate 71 02/04/19 21:13 Respiratory Rate 18 02/04/19 21:13 Blood Pressure 131/82 02/04/19 21:13 Pulse Oximetry 98 02/04/19 21:13 Scores HEART Score Heart Score history: Moderately Suspicious Heart Score EKG: Normal Heart Score Age: < 45 years old Heart Score risk factors: 1-2 risk factors Heart Score troponin: < or = to normal limit Heart Score Total: 2 Course Orders Ordered: ED Orders 02/04/19 21:23 EKG-12 Lead Stat 02/04/19 21:33 XR chest 1V Stat 02/04/19 21:40 Complete Blood Count AUTO DIFF Stat Comprehensive Metabolic Panel Stat Lipase Stat Magnesium Stat Partial Thromboplastin Time Stat Prothrombin Time INR Stat Troponin & CK Cardiac Panel Stat 02/04/19 22:45 Troponin & CK Cardiac Panel Stat 02/04/19 23:40 EKG-12 Lead Stat 02/05/19 00:40 Urine Microscopic Stat Discontinued Medications Sodium Chloride (Normal Saline 0.9%) 1,000 mls @ 1,000 mls/hr IV BOLUS ONE Stop: 02/04/19 23:56 Last Infusion: 02/05/19 00:02 Dose: 0 mls/hr Documented by: Admin: 02/04/19 23:00 Dose: 1,000 mls/hr Documented by: RITU Ketorolac Tromethamine (Toradol) 15 mg IV NOW ONE Stop: 02/05/19 01:34 Last Admin: 02/05/19 02:06 Dose: 15 mg Documented by: EDGAR Vital Signs Vital signs: Vital Signs - 8 hr 02/04/19 22:05 02/04/19 22:30 02/04/19 23:50 Pulse Rate 66 62 61 Respiratory Rate 14 12 12 Blood Pressure Blood Pressure [Left Wrist] 98/48 L 119/74 119/70 Pulse Oximetry 98 96 96 02/05/19 00:50 02/05/19 02:35 Pulse Rate 60 56 L Respiratory Rate 17 16 Blood Pressure 108/64 Blood Pressure [Left Wrist] 127/72 Pulse Oximetry 97 98 MDM - Chest Pain Lab Data Attestation: I reviewed the patient's lab results. Result diagrams: 02/04/19 21:40 02/04/19 21:40 Labs: Lab Results 02/04/19 02/04/19 02/04/19 Range/Units 21:40 21:40 21:40 WBC 7.7 (4.5-11.0) X10^3/uL RBC 4.96 (4.0-5.2) X10^6/uL Hgb 14.2 (12.0-16.0) g/dL Hct 41.0 (36-46) % MCV 82.8 (80-100) fL MCH 28.6 (26-34) PG MCHC 34.6 (30-36) % RDW 13.4 (11.6-14.8) % Plt Count 243 (150-400) X10^3/uL Neut % (Auto) 58.1 (50-75) % Lymph % (Auto) 31.7 (25-40) % [place] % (Auto) 7.8 (3-14) % Eos % (Auto) 1.5 L (2-4) % Baso % (Auto) 0.9 (0-2) % Neut # (Auto) 4500 (4411-6730) /uL Lymph # (Auto) 2400 (2243-4194) /uL [place] # (Auto) 600 (0-900) /uL Eos # (Auto) 100 (0-450) /uL Baso # (Auto) 100 (0-100) /uL PT 11.0 (10.1-12.7) SECONDS INR 1.0 (0.9-1.3) APTT 35 D (26.4-36.2) SECONDS Sodium 139 (137-145) mmol/L Potassium 3.9 (3.4-5.1) mmol/L Chloride 105 (98-107) mmol/L Carbon Dioxide 27 (22-32) mmol/L BUN 12 (7-17) mg/dL Creatinine 0.70 (0.52-1.04) mg/dL Estimated GFR > 60.0 (>60) mL/min BUN/Creatinine Ratio 17.1 (6-22) Glucose 98 (70-100) mg/dL Calcium 9.3 (8.4-10.2) mg/dL Magnesium 2.2 (1.6-2.3) mg/dL Total Bilirubin 0.4 (0.2-1.3) mg/dL AST 22 (14-36) IU/L ALT 22 (9-52) IU/L Alkaline Phosphatase 68 (38-126) U/L Total Creatine Kinase 40 (30-135) U/L CK-MB (CK-2) TNP CK-MB (CK-2) Rel Index TNP Troponin I < 0.012 (0.01-0.034) ng/mL Total Protein 7.5 (6.3-8.2) g/dL Albumin 4.1 (3.5-5.0) g/dL Globulin 3.4 (1.7-4.1) g/dL Albumin/Globulin Ratio 1.2 (1.0-2.8) Lipase 84 (23-300) U/L Urine RBC (0-5/HPF) Urine WBC (0-5/HPF) Ur Squamous Epith Cells (0-5/HPF) Urine Bacteria (None) Ur Culture Indicated? 02/04/19 02/05/19 Range/Units 22:45 00:40 WBC (4.5-11.0) X10^3/uL RBC (4.0-5.2) X10^6/uL Hgb (12.0-16.0) g/dL Hct (36-46) % MCV (80-100) fL MCH (26-34) PG MCHC (30-36) % RDW (11.6-14.8) % Plt Count (150-400) X10^3/uL Neut % (Auto) (50-75) % Lymph % (Auto) (25-40) % [place] % (Auto) (3-14) % Eos % (Auto) (2-4) % Baso % (Auto) (0-2) % Neut # (Auto) (2280-6799) /uL Lymph # (Auto) (6940-0461) /uL [place] # (Auto) (0-900) /uL Eos # (Auto) (0-450) /uL Baso # (Auto) (0-100) /uL PT (10.1-12.7) SECONDS INR (0.9-1.3) APTT (26.4-36.2) SECONDS Sodium (137-145) mmol/L Potassium (3.4-5.1) mmol/L Chloride (98-107) mmol/L Carbon Dioxide (22-32) mmol/L BUN (7-17) mg/dL Creatinine (0.52-1.04) mg/dL Estimated GFR (>60) mL/min BUN/Creatinine Ratio (6-22) Glucose (70-100) mg/dL Calcium (8.4-10.2) mg/dL Magnesium (1.6-2.3) mg/dL Total Bilirubin (0.2-1.3) mg/dL AST (14-36) IU/L ALT (9-52) IU/L Alkaline Phosphatase (38-126) U/L Total Creatine Kinase 37 (30-135) U/L CK-MB (CK-2) TNP CK-MB (CK-2) Rel Index TNP Troponin I < 0.012 (0.01-0.034) ng/mL Total Protein (6.3-8.2) g/dL Albumin (3.5-5.0) g/dL Globulin (1.7-4.1) g/dL Albumin/Globulin Ratio (1.0-2.8) Lipase (23-300) U/L Urine RBC 0-1/hpf (0-5/HPF) Urine WBC 0-1/hpf (0-5/HPF) Ur Squamous Epith Cells 1-5 /hpf (0-5/HPF) Urine Bacteria Few (2-10) H (None) Ur Culture Indicated? Cult not indicated Urine Dip Bedside Urine Glucose Negative Bedside Urine Bilirubin - Negative Bedside Urine Ketone - Negative Urine Specific [place] 1.015 Bedside Urine Occult Blood +/- Bedside Urine pH 6.0 Bedside Urine Protein - Negative Bedside Urine Urobilinogen +/- 1mg Bedside Urine Nitrite - Negative Bedside Urine Leukocytes +/- 15 Esterase Imaging Data Chest x-ray: My impression: No acute process noted. ECG Data Attestation: I personally reviewed and interpreted this ECG as follows: Prior ECG tracings: available for review Interpretation: Sinus rhythm with a rate of 75 P are 171, QRS 81 and QTC of 413. No ST elevation or depression. EKG 2. Shows sinus bradycardia rate of 57 P are 189 QRS of 93 QTC of 443. No ST elevation or depression was appreciated. [facility] Narrative Medical decision making narrative: Patient comes in with complaint of dizziness, she also is complaining of palpitations. Patient's heart rate has been appropriate here in the emergency department. She did have what is suspected to be an episode of atrial flutter while she was in the department on the . She was started on metoprolol and her heart rate has varied from the 80s to 50s in the department. Patient complains of some atypical chest pain which is worse when her heart rate is low. Lab work does show any acute abnormalities. Disc ussed with patient could decrease the metoprolol to half. She has risk factors for cardiac disease but heart score is low. Discussed with patient and plan for follow-up with cardiology. Discharge Plan Departure Patient Disposition: Home Clinical Impression: Atypical chest pain Discharge Date/Time: 02/05/19 02:40 Instructions: DI for Atypical Chest Pain Activity Restrictions/Additional Instructions: Follow up with cardiology, call Wednesday morning for an appointment. Continue home medications, decrease your metoprolol to 1/2 tablet until you follow up with cardiology. Continue other home medications as prescribed. Return to the emergency department for any new or concerning symptoms, worsening lightheadedness, passing out, new chest pain or pressure, shortness of breath, persistent nausea or vomiting, new swelling in her extremities or other new or concerning symptoms. Prescriptions: No Action omeprazole 20 mg Capsule,Delayed Release(Dr/Ec) 20 mg PO DAILY RF: 0 naproxen sodium [Aleve] 220 mg Capsule 2 tab PO DAILY PRN (Reason: pain) RF: 0 metoprolol succinate 25 mg tablet extended release 24 hr 25 mg PO DAILY Qty: 30 RF: 0 aspirin [Adult Low Dose Aspirin] 81 mg Tablet,Delayed Release (Dr/Ec) 81 mg PO DAILY RF: 0 alprazolam 0.25 mg tablet 0.25 mg PO .q6 prn PRN (Reason: Anxiety) RF: 0 oxycodone 5 mg tablet 5 mg PO Q4-6H PRN (Reason: pain) Qty: 30 RF: 0 Referrals: Jw Cardona MD [Primary Care Provider] - Petty Amato MD [Physician] -
[2019-02-04] MEDS: SODIUM CHLORIDE 0.9% 1,000 ML 1000 ML IV (23:00)
[2019-02-04 23:50] VITALS: BP 119/70; PULSE 61; RESP 12; O2SAT 96
[2019-02-04 23:59] LABS: Creatine Kinase 37 U/L (30-135)
[2019-02-05 00:12] LABS: Troponin I < 0.012 ng/mL (0.01-0.034)
[2019-02-05 00:50] VITALS: BP 127/72; PULSE 60; RESP 17; O2SAT 97
[2019-02-05 01:04] LABS: RBC Urine 0-1/HPF (0-5/HPF); Squamous Epithelial Cell Urine 1-5 /HPF (0-5/HPF); WBC Urine 0-1/HPF (0-5/HPF)
[2019-02-05 01:05] LABS: Bacteria Urine Few (2-10); Culture Indicated Urine Cult Not Indicated
[2019-02-05] MEDS: KETOROLAC 60 MG/2 ML VIAL 15 MG IV (02:06)
[2019-02-05 02:35] VITALS: BP 108/64; PULSE 56; RESP 16; O2SAT 98
== END 2019-02-05 02:40 | disposition home or self-care (01) ==
PROVIDERS: Emergency Provider Emergency Medicine; PCP Internal Medicine
DX: R07.89 Other chest pain (principal)
CPT/HCPCS: 36415; 36591; 71045; 80053; 81003; 81015; 82550; 82553; 83690; 83735; 84484; 85025; 85610; 85730; 93005; 96361; 96374; 99284; 99285; J1885

== ENCOUNTER 2019-02-05 22:53 | Emergency (ER) | payer OTHER, MEDICAID, SELFPAY ==
[2019-02-05 22:57] VITALS: BP 123/76; PULSE 92; RESP 15; TEMP 36.5; O2SAT 99; BMI 58.7
[2019-02-05] MEDS: LORazepam 0.5 MG TABLET 2 MG PO (23:50)
--- NOTE | 2019-02-05 23:53 | ED_ITS ---
HPI - Chest Pain General Chief Complaint: Chest Pain Stated Complaint: Heart problems/here yesterday Time Seen by Provider: 02/05/19 23:02 Source: patient Mode of arrival: ambulatory Limitations: no limitations History of Present Illness HPI narrative: Patient comes emergency department complaining of a slow heart rate intermittently since starting metoprolol several days ago for atrial flutter. Patient denies any chest pain. No shortness of breath. She has felt somewhat tired, but does admit also that she has not been drinking very much water. No nausea or vomiting. No abdominal pain. Patient has been anxious. Patient states that she does not feel as though the metoprolol is agreeing with her. No other complaints at this time. Related Data Home Medications Medication Instructions Recorded Confirmed naproxen sodium [Aleve] 2 tab PO DAILY PRN 11/03/17 02/04/19 omeprazole 20 mg PO DAILY 11/03/17 02/04/19 alprazolam 0.25 mg PO .q6 prn PRN 11/23/18 02/04/19 aspirin [Adult Low Dose Aspirin] 81 mg PO DAILY 02/04/19 02/04/19 Previous Rx's Medication Instructions Recorded oxycodone 5 mg PO Q4-6H PRN #30 tab 11/23/18 metoprolol succinate 25 mg PO DAILY #30 tab 02/02/19 diltiazem HCl 120 mg PO Q12H #20 cap 02/05/19 Allergies Allergy/AdvReac Type Severity Reaction Status Date / Time Penicillins [PENICILLINS] Allergy Intermediate HIVES, Verified 02/04/19 21:18 difficulty breathing amoxicillin [AMOXICILLIN] Allergy Mild HIVES, Verified 02/04/19 21:18 difficulty breathing hydrocodone [From Vicodin] AdvReac Mild Nausea Verified 02/04/19 21:18 ibuprofen [From Motrin] AdvReac Gastrointestinal Verified 02/04/19 21:18 Upset Review of Systems Constitutional Constitutional: Denies chills, Denies fatigue, Denies fever(s), Denies frequent falls, Denies lethargy and Denies weakness Comments: Generalized weakness Eyes Eyes: Denies change in vision, Denies eye discharge, Denies irritation and Denies loss of vision ENT Ears, Nose, Mouth, and Throat: Denies change in voice, Denies dizziness, Denies neck pain, Denies sore throat and Denies throat swelling Cardiovascular Cardiovascular: Denies chest pain, Denies irregular heart rhythm, Denies lightheadedness, Denies palpitations, Denies dyspnea, Denies dyspnea on exertion and Denies orthopnea Respiratory Respiratory: Denies cough, Denies dyspnea, Denies dyspnea on exertion and Denies wheezing Gastrointestinal Gastrointestinal: Denies abdominal pain, Denies change in bowel habits, Denies diarrhea, Denies nausea and Denies vomiting Genitourinary Genitourinary: Denies hematuria, Denies flank pain, Denies urinary incontinence and Denies urinary urgency Musculoskeletal Musculoskeletal: Denies back pain, Denies muscle weakness, Denies neck pain, Denies numbness and Denies tingling Integumentary/Breasts Skin/Breast: Denies pruritus, Denies erythema, Denies rash and Denies wounds Neurologic Neurologic: Denies behavioral changes, Denies confusion, Denies dizziness, Denies frequent falls, Denies loss of vision, Denies numbness, Denies tingling and Denies weakness Psychiatric Psychiatric: Denies anxiety, Denies behavioral changes, Denies confusion, Denies depression, Denies homicidal ideation and Denies suicidal ideation Endocrine Endocrine: Denies fatigue, Denies flushing and Denies palpitations Hematologic/Lymphatic Hematologic/Lymphatic: Denies easy bruising Allergic/Immunologic Allergic/Immunologic: Denies urticaria, Denies throat swelling and Denies wheezing [facility] Medical History Anxiety (Chronic) Depression (Chronic) GERD (gastroesophageal reflux disease) (Chronic) Migraines (Chronic) Palpitations (Acute) Panic attacks (Acute) Premature delivery before 37 weeks (Resolved 12/17/15) Prior miscarriage with in first trimester, antepartum (Resolved 1995) Visit for wound care (Resolved) Surgical History Encounter for management of vacuum-assisted closure (VAC) of wound (Resolved 12/28/15) History of colonoscopy (Resolved 2014) History of laparoscopic cholecystectomy (Resolved 11/09/17) Status post delivery (Resolved 12/17/15) Status post debridement (Resolved 12/25/15) Status post debridement (Resolved 12/26/15) Family History (Updated 02/05/19 @ 01:23 by Marika Sloan DO) Grandfather Diabetes mellitus Mother Heart attack Atrial fibrillation Other Breast cancer Gallstones Heart disease Hypertension Ovarian cancer Social History (Updated 02/05/19 @ 01:23 by Marika Sloan DO) household members: significant other and family Smoking Status: Current every day smoker alcohol intake: current substance use type: does not use Family History (Updated 02/05/19 @ 01:23 by Marika Sloan DO) Grandfather Diabetes mellitus Mother Heart attack Atrial fibrillation Other Breast cancer Gallstones Heart disease Hypertension Ovarian cancer Social History household members: significant other and family Smoking Status: Current every day smoker alcohol intake: current substance use type: does not use Exam Initial Vital Signs Initial Vital Signs: Vital Signs Temperature 97.7 F 02/05/19 22:57 Pulse Rate 92 H 02/05/19 22:57 Respiratory Rate 15 02/05/19 22:57 Blood Pressure 123/76 02/05/19 22:57 Pulse Oximetry 99 02/05/19 22:57 Const General: cooperative and well developed Nutritional Appearance: well nourished Orientation: alert, awake, oriented x3 and not confused [facility] Head: normocephalic and atraumatic Ears: external ears normal Nose: external nose normal and No nasal discharge Face and sinus: face symmetric and No dry mucous membranes Mouth: oral mucosae normal and moist mucous membranes Teeth and gingiva: dentition normal Eyes General: appearance normal, both eyes and all related structures Eyelids: eyelids normal Conjunctivae: conjunctivae normal Sclera: sclerae normal Pupils: PERRL EOM: EOM intact bilaterally Neck Neck: normal visual inspection, trachea midline, No lymphadenopathy, No midline deformity and No JVD Lymphatic: No lymphedema Chest Chest: normal inspection of the chest Resp Effort & Inspection: normal respiratory effort, able to speak in complete sentences, no respiratory distress and no use of accessory muscles Auscultation: clear to auscultation bilaterally, no rales, no rhonchi and no wheezes Cardio Rate: regular rate Rhythm: regular rhythm Heart Sounds: no click, no gallops, no murmurs and no rubs Pulses: normal peripheral pulses GI Inspection: non-distended Palpation: soft, no hepatosplenomegaly, No guarding, No pulsatile mass and No tender Auscultation: normal bowel sounds Back/Spine/Pelvis Back: No CVA tenderness Cervical Spine: cervical ROM normal and No pain with cervical ROM Thoracic/Lumbar Spine: thoracic and lumbar spine normal to inspection Skin General: no rashes or lesions noted, No jaundice and No petechiae Neuro General: alert, oriented x3, gait normal and no focal motor deficits Speech: speech normal Extrem General: full ROM, no clubbing, cyanosis or edema, no pedal edema and no calf tenderness Psych Appearance: well kempt Mental Status: mental status grossly normal Attitude: cooperative Thought Content: normal and suicidality Judgment: judgment good Course Course Course Narrative: Patient had just been seen and had a full workup for the exact same symptoms, and this was actually her 3rd visit in the last several days for this problem. As such, I did not feel further workup was indicated. The patient's heart rate was not found to be low whatsoever, and was actually quite normal. I did point this out to the patient. It addition to this, the pat rhoda's blood pressures have been normal throughout her stay here as have her oxygen saturations. I do not find any evidence of an emergent condition. The patient does not seem to be agreeing well with the metoprolol, so I will switch her to Cardizem. Patient is agreeable to this plan. Orders Ordered: Discontinued Medications Lorazepam (Ativan) 2 mg PO NOW ONE Stop: 02/05/19 23:47 Last Admin: 02/05/19 23:50 Dose: 2 mg Documented by: EDGAR Vital Signs Vital signs: Vital Signs - 8 hr 02/05/19 22:57 Temperature 97.7 F Pulse Rate 92 H Respiratory Rate 15 Blood Pressure 123/76 Pulse Oximetry 99 Discharge Plan Departure Patient Disposition: Home Clinical Impression: Heart palpitations Adverse drug effect Qualifiers: Encounter type: initial encounter Qualified Code(s): T50.905A - Adverse effect of unspecified drugs, medicaments and biological substances, initial encounter Discharge Date/Time: 02/06/19 00:21 Instructions: DI for Adverse Drug Reaction -- Other, DI for Palpitations Activity Restrictions/Additional Instructions: Your labs, EKG, and imaging studies looked good yesterday. Your EKG and heart rhythm look very good today. Your symptoms are most likely secondary to an adverse reaction to the metoprolol. We will switch you from metoprolol to Cardizem to see if this agrees with you better. At this point in time, your heart is in a normal rhythm with a good rate. Please call your primary doctor's office 1st thing on Wednesday to set up a follow-up appointment to be seen within the next week to discuss Holter monitoring. You may also call the cardiology office for follow-up, as well. Your prescription has been electronically transmitted to [facility] in [place]. Prescriptions: New diltiazem HCl 120 mg capsule,extended release 12 hr 120 mg PO Q12H Qty: 20 RF: 0 No Action omeprazole 20 mg Capsule,Delayed Release(Dr/Ec) 20 mg PO DAILY RF: 0 naproxen sodium [Aleve] 220 mg Capsule 2 tab PO DAILY PRN (Reason: pain) RF: 0 metoprolol succinate 25 mg tablet extended release 24 hr 25 mg PO DAILY Qty: 30 RF: 0 aspirin [Adult Low Dose Aspirin] 81 mg Tablet,Delayed Release (Dr/Ec) 81 mg PO DAILY RF: 0 alprazolam 0.25 mg tablet 0.25 mg PO .q6 prn PRN (Reason: Anxiety) RF: 0 oxycodone 5 mg tablet 5 mg PO Q4-6H PRN (Reason: pain) Qty: 30 RF: 0 Referrals: [facility] Cardiology [Provider Group] Jw Cardona MD [Primary Care Provider] -
[2019-02-05 23:54] VITALS: BP 111/79; PULSE 64; RESP 18; O2SAT 97
== END 2019-02-06 00:21 | disposition home or self-care (01) ==
PROVIDERS: Emergency Provider Emergency Medicine; PCP Internal Medicine
DX: R00.2 Palpitations (principal); T50.905A Adverse effect of unspecified drugs, medicaments and biological substances, initial encounter
CPT/HCPCS: 93005; 93041; 99283

== ENCOUNTER 2019-02-19 21:55 | Emergency (ER) | payer OTHER, MEDICAID, SELFPAY ==
[2019-02-19 22:00] VITALS: BP 123/81; PULSE 107; RESP 11; TEMP 37.3; O2SAT 99; BMI 56.1
--- NOTE | 2019-02-19 22:26 | ED_ITS ---
HPI - Arrhythmia/Palpitations General Chief Complaint: Arrhythmia/Palpitations Stated Complaint: heart palpitations and anxiety attack Time Seen by Provider: 02/19/19 22:04 Source: patient Mode of arrival: ambulatory Limitations: no limitations History of Present Illness HPI narrative: 38-year-old female with a known history of anxiety was been seen in the emergency department multiple times in the past for palpitations. During her 1st visit here in the emergency department was noted that the patient had a very short run of atrial fibrillation. The seemed to have resolved on its own. She has been seen multiple times in the past since then has had multiple medication changes. Has seen her primary care doctor and was told to stop all of the medication that she been given in the past and has a Holter monitor ordered. States that today she started feel the symptoms again. He also states that she is feeling very anxious. She is under if the symptoms of causing anxiety the anxiety is causing the symptoms. She does describe a chest pressure and palpitations and shortness of breath Related Data Home Medications Medication Instructions Recorded Confirmed naproxen sodium [Aleve] 2 tab PO DAILY PRN 11/03/17 02/04/19 omeprazole 20 mg PO DAILY 11/03/17 02/04/19 alprazolam 0.25 mg PO .q6 prn PRN 11/23/18 02/04/19 aspirin [Adult Low Dose Aspirin] 81 mg PO DAILY 02/04/19 02/04/19 Previous Rx's Medication Instructions Recorded oxycodone 5 mg PO Q4-6H PRN #30 tab 11/23/18 metoprolol succinate 25 mg PO DAILY #30 tab 02/02/19 diltiazem HCl 120 mg PO Q12H #20 cap 02/05/19 lorazepam [Ativan] 1 mg PO BID-TID PRN #10 tab 02/19/19 Allergies Allergy/AdvReac Type Severity Reaction Status Date / Time Penicillins [PENICILLINS] Allergy Intermediate HIVES, Verified 02/04/19 21:18 difficulty breathing amoxicillin [AMOXICILLIN] Allergy Mild HIVES, Verified 02/04/19 21:18 difficulty breathing hydrocodone [From Vicodin] AdvReac Mild Nausea Verified 02/04/19 21:18 ibuprofen [From Motrin] AdvReac Gastrointestinal Verified 02/04/19 21:18 Upset Review of Systems Constitutional Constitutional: Denies fever(s) Cardiovascular Cardiovascular: Reports chest pain, Reports palpitations and Reports dyspnea Respiratory Respiratory: Reports dyspnea Gastrointestinal Gastrointestinal: Denies abdominal pain, Denies nausea and Denies vomiting Genitourinary Genitourinary: Denies dysuria Musculoskeletal Musculoskeletal: Denies abnormal gait, Denies myalgias and Denies arthralgias Integumentary/Breasts Skin/Breast: Denies rash Neurologic Neurologic: Denies abnormal gait and Denies behavioral changes Psychiatric Psychiatric: Denies behavioral changes Endocrine Endocrine: Reports palpitations Hematologic/Lymphatic Hematologic/Lymphatic: Denies easy bleeding and Denies easy bruising [facility] Medical History Anxiety (Chronic) Depression (Chronic) GERD (gastroesophageal reflux disease) (Chronic) Migraines (Chronic) Palpitations (Acute) Panic attacks (Acute) Premature delivery before 37 weeks (Resolved 12/17/15) Prior miscarriage with in first trimester, antepartum (Resolved 1995) Visit for wound care (Resolved) Family History (Updated 02/05/19 @ 01:23 by Marika Sloan DO) Grandfather Diabetes mellitus Mother Heart attack Atrial fibrillation Other Breast cancer Gallstones Heart disease Hypertension Ovarian cancer Social History household members: significant other and family Smoking Status: Current every day smoker alcohol intake: current substance use type: does not use Exam Initial Vital Signs Initial Vital Signs: Vital Signs Temperature 99.1 F 02/19/19 22:00 Pulse Rate 107 H 02/19/19 22:00 Respiratory Rate 11 L 02/19/19 22:00 Blood Pressure 123/81 02/19/19 22:00 Pulse Oximetry 99 02/19/19 22:00 Const General: cooperative, comfortable and well developed Orientation: alert, awake and oriented x3 HENMT Head: normal to inspection and normocephalic Resp Effort & Inspection: normal respiratory effort Auscultation: clear to auscultation bilaterally Cardio Rate: regular rate Rhythm: regular rhythm Pulses: radial pulses present GI Inspection: non-distended Palpation: soft, No firm and No tender Skin Lesions: no lesions Rashes: no rashes Neuro General: alert and awake Cognition: normal cognition Speech: speech normal Extrem General: normal to inspection and capillary refill normal Psych Appearance: grossly normal and well kempt Speech and Movement: restless Mood: anxious mood Course Orders Ordered: ED Orders 02/19/19 22:05 EKG-12 Lead Stat 02/19/19 22:27 XR chest 2V Stat Discontinued Medications Lorazepam (Ativan) 1 mg PO NOW ONE Stop: 02/19/19 22:27 Last Admin: 02/19/19 22:31 Dose: 1 mg Documented by: LUCINDA Vital Signs Vital signs: Vital Signs - 8 hr 02/19/19 22:00 02/19/19 23:09 Temperature 99.1 F Pulse Rate 107 H 73 Respiratory Rate 11 L 17 Blood Pressure 123/81 Blood Pressure [Left Arm] 101/70 Blood Pressure [Right Arm] 101/70 Pulse Oximetry 99 100 MDM - Arrhythmia/Palpitations Imaging Data Chest x-ray: Attestation: I personally reviewed and interpreted this imaging study as follows: My impression: No acute process, no pneumonia, no pneumothorax, normal size heart ECG Data Attestation: I personally reviewed and interpreted this ECG as follows: Prior ECG tracings: not available for review Interpretation: Sinus rhythm Ventricular rate of 95 Normal QRS Normal QTC No ST T wave changes MDM Narrative Medical decision making narrative: Patient has normal heart rhythm and rate to the time of my evaluation. She was observed for period of time on the monitor without any ectopy. Chest x-ray is unremarkable. She was given Ativan for anxiety. I do suspect that the cause of her symptoms today was anxiety. We did discuss that it is appropriate that they stopped her anti rhythmic medications and ordered a Holter monitor. She is going to contact her adult basic education manager tomorrow to make sure that this referral has gone through. We did discuss return precautions and follow-up instructions. I did not feel that there is an emergent condition causing her symptoms today. Low suspicion for ACS. Patient was given return precautions and follow-up instructions. Both her and her mother was at bedside expressed understanding and agreement with plan. Discharge Plan Departure Patient Disposition: Home Clinical Impression: Heart palpitations, Anxiety Discharge Date/Time: 02/19/19 23:15 Instructions: DI for Anxiety -- Adult, DI for Palpitations Activity Restrictions/Additional Instructions: Tomorrow contact the cardiology clinic and your primary care provider for follow-up. Continue all of your medications as directed however change the alprazolam to the Ativan that you were given a prescription for this evening. Return to the emergency department for any new or worsening symptoms Prescriptions: New lorazepam [Ativan] 1 mg tablet 1 mg PO BID-TID PRN (Reason: anxiety) Qty: 10 RF: 0 No Action omeprazole 20 mg Capsule,Delayed Release(Dr/Ec) 20 mg PO DAILY RF: 0 naproxen sodium [Aleve] 220 mg Capsule 2 tab PO DAILY PRN (Reason: pain) RF: 0 metoprolol succinate 25 mg tablet extended release 24 hr 25 mg PO DAILY Qty: 30 RF: 0 aspirin [Adult Low Dose Aspirin] 81 mg Tablet,Delayed Release (Dr/Ec) 81 mg PO DAILY RF: 0 alprazolam 0.25 mg tablet 0.25 mg PO .q6 prn PRN (Reason: Anxiety) RF: 0 oxycodone 5 mg tablet 5 mg PO Q4-6H PRN (Reason: pain) Qty: 30 RF: 0 diltiazem HCl 120 mg capsule,extended release 12 hr 120 mg PO Q12H Qty: 20 RF: 0 Referrals: Jw Cardona MD [Primary Care Provider] -
--- NOTE | 2019-02-19 22:27 | DI.RAD.S_ITS ---
PROCEDURE: XR CHEST 2V INDICATIONS: SOB TECHNIQUE: 2 views of the chest were acquired. COMPARISON: [facility], CR, XR CHEST 1V, 02/04/2019, 22:18. FINDINGS: Surgical changes and devices: None. Lungs and pleura: Lungs are clear. No pleural effusions or pneumothorax. Mediastinum: Mediastinal contours are normal. Heart size is normal. Bones and chest wall: No suspicious bony abnormalities. Soft tissues appear unremarkable. IMPRESSION: No acute pulmonary process. Dictated by: Ainsley Talavera M.D. on 02/20/2019 at 8:22 Approved by: Ainsley Talavera M.D. on 02/20/2019 at 8:24
[2019-02-19] MEDS: LORazepam 0.5 MG TABLET 1 MG PO (22:31)
[2019-02-19 23:09] VITALS: BP 101/70; PULSE 70; PULSE 73; RESP 17; O2SAT 100; O2SAT 99
== END 2019-02-19 23:15 | disposition home or self-care (01) ==
PROVIDERS: Emergency Provider Emergency Medicine; PCP Internal Medicine
DX: R00.2 Palpitations (principal); F41.9 Anxiety disorder, unspecified
CPT/HCPCS: 71046; 93005; 99282; 99284

== ENCOUNTER 2019-05-30 20:18 | Emergency (ER) | payer OTHER, MEDICAID, SELFPAY ==
[2019-05-30 20:24] VITALS: BP 134/96; PULSE 105; RESP 20; TEMP 36.9; O2SAT 96
--- NOTE | 2019-05-30 20:36 | ED.URI ---
HPI - URI/Sore Throat General Chief Complaint: Upper Respiratory Symptoms Stated Complaint: thinks she has strep throat Time Seen by Provider: 05/30/19 20:26 Source: patient Mode of arrival: Ambulatory Limitations: no limitations History of Present Illness HPI Narrative: Otherwise healthy 38-year-old female here for evaluation of a sore throat, white patches on her tonsils, no cough, fevers, has not tried anything for symptoms prior to arrival. States she has had strep throat many times in the past and this feels like that. She is allergic to the ?cillins? however has been able to take azithromycin in the past. Related Data Home Medications Medication Instructions Recorded Confirmed naproxen sodium [Aleve] 2 tab PO DAILY PRN 11/03/17 02/04/19 omeprazole 20 mg PO DAILY 11/03/17 02/04/19 alprazolam 0.25 mg PO .q6 prn PRN 11/23/18 02/04/19 aspirin [Adult Low Dose Aspirin] 81 mg PO DAILY 02/04/19 02/04/19 Previous Rx's Medication Instructions Recorded oxycodone 5 mg PO Q4-6H PRN #30 tab 11/23/18 metoprolol succinate 25 mg PO DAILY #30 tab 02/02/19 diltiazem HCl 120 mg PO Q12H #20 cap 02/05/19 lorazepam [Ativan] 1 mg PO BID-TID PRN #10 tab 02/19/19 azithromycin 250 mg PO DAILY 3 Days #3 tab 05/30/19 Allergies Allergy/AdvReac Type Severity Reaction Status Date / Time Penicillins [PENICILLINS] Allergy Intermediate HIVES, Verified 02/04/19 21:18 difficulty breathing amoxicillin [AMOXICILLIN] Allergy Mild HIVES, Verified 02/04/19 21:18 difficulty breathing hydrocodone [From Vicodin] AdvReac Mild Nausea Verified 02/04/19 21:18 ibuprofen [From Motrin] AdvReac Gastrointestinal Verified 02/04/19 21:18 Upset Review of Systems Constitutional Constitutional: Reports fever(s) ENT Ears, Nose, Mouth, and Throat: Denies dizziness, Denies tinnitus, Reports sore throat and Reports throat swelling Respiratory Respiratory: Denies cough Integumentary/Breasts Skin/Breast: Denies rash Neurologic Neurologic: Denies behavioral changes and Denies dizziness Psychiatric Psychiatric: Denies behavioral changes Allergic/Immunologic Allergic/Immunologic: Reports throat swelling Patient History Medical History Anxiety (Chronic) Depression (Chronic) GERD (gastroesophageal reflux disease) (Chronic) Migraines (Chronic) Palpitations (Acute) Panic attacks (Acute) Premature delivery before 37 weeks (Resolved 12/17/15) Prior miscarriage with in first trimester, antepartum (Resolved 1995) Visit for wound care (Resolved) Surgical History Encounter for management of vacuum-assisted closure (VAC) of wound (Resolved 12/28/15) History of colonoscopy (Resolved 2014) History of laparoscopic cholecystectomy (Resolved 11/09/17) Status post delivery (Resolved 12/17/15) Status post debridement (Resolved 12/25/15) Status post debridement (Resolved 12/26/15) Family History Grandfather Diabetes mellitus Mother Heart attack Atrial fibrillation Other Breast cancer Gallstones Heart disease Hypertension Ovarian cancer Social History household members: significant other and family Smoking Status: Current every day smoker alcohol intake: current substance use type: does not use Smoking Status: Current every day smoker alcohol intake frequency: holidays/special occasions only Substance Use Type: does not use Exam Initial Vital Signs Initial Vital Signs: Vital Signs Temperature 98.5 F 05/30/19 20:24 Pulse Rate 105 H 05/30/19 20:24 Respiratory Rate 20 05/30/19 20:24 Blood Pressure 134/96 H 05/30/19 20:24 Pulse Oximetry 96 05/30/19 20:24 Const General: cooperative and comfortable Orientation: alert, awake and oriented x3 HENMT Head: normal to inspection and normocephalic Ears: TM's normal bilaterally Nose: external nose normal Mouth: moist mucous membranes Throat: uvula midline and other (Erythema and exudates bilateral tonsils) Neck Lymphatic: lymphadenopathy Resp Effort & Inspection: normal respiratory effort Auscultation: clear to auscultation bilaterally Cardio Rate: regular rate Rhythm: regular rhythm Skin Lesions: no lesions Rashes: no rashes Extrem General: normal to inspection and capillary refill normal Course Orders Ordered: Discontinued Medications Azithromycin (Zithromax) 500 mg PO NOW ONE Stop: 05/30/19 20:41 Last Admin: 05/30/19 20:52 Dose: 500 mg Documented by: LUCINDA Azithromycin (Zithromax) 250 mg PO NOW ONE Stop: 05/30/19 20:41 Last Admin: 05/30/19 20:52 Dose: 250 mg Documented by: LUCINDA Vital Signs Vital signs: Vital Signs - 8 hr 05/30/19 20:24 Temperature 98.5 F Pulse Rate 105 H Respiratory Rate 20 Blood Pressure 134/96 H Pulse Oximetry 96 MDM - URI/Sore Throat Lab Data Labs: Point of Care Testing Rapid Strep A Positive MDM Narrative Medical decision making narrative: History and physical and rapid strep consistent with strep pharyngitis. She was given a 1st dose of azithromycin here in the emergency department. Was given a 2nd pill that she can take tomorrow and a prescription for the remainder. It was done this was secondary to the holiday and the lack of pharmacy availability. Patient was given return precautions and follow-up instructions. She expressed understanding agreement with plan. Discharge Plan Departure Patient Disposition: Home Clinical Impression: Strep throat Discharge Date/Time: 05/30/19 20:57 Instructions: DI for Strep Throat Activity Restrictions/Additional Instructions: take the antibiotics as directed. You can use tylenol or motrin for any fevers and body aches. Return to the ER for any new or worsening symptoms. Prescriptions: New azithromycin 250 mg tablet 250 mg PO DAILY 3 Days Qty: 3 RF: 0 No Action omeprazole 20 mg Capsule,Delayed Release(Dr/Ec) 20 mg PO DAILY RF: 0 naproxen sodium [Aleve] 220 mg Capsule 2 tab PO DAILY PRN (Reason: pain) RF: 0 metoprolol succinate 25 mg tablet extended release 24 hr 25 mg PO DAILY Qty: 30 RF: 0 aspirin [Adult Low Dose Aspirin] 81 mg Tablet,Delayed Release (Dr/Ec) 81 mg PO DAILY RF: 0 lorazepam [Ativan] 1 mg tablet 1 mg PO BID-TID PRN (Reason: anxiety) Qty: 10 RF: 0 alprazolam 0.25 mg tablet 0.25 mg PO .q6 prn PRN (Reason: Anxiety) RF: 0 oxycodone 5 mg tablet 5 mg PO Q4-6H PRN (Reason: pain) Qty: 30 RF: 0 diltiazem HCl 120 mg capsule,extended release 12 hr 120 mg PO Q12H Qty: 20 RF: 0 Referrals: Jw Cardona MD [Primary Care Provider] -
[2019-05-30] MEDS: AZITHROMYCIN 250 MG TABLET PO (20:52)
[2019-05-30] MEDS: AZITHROMYCIN 250 MG TABLET 500 MG PO (20:52)
== END 2019-05-30 20:57 | disposition home or self-care (01) ==
PROVIDERS: Emergency Provider Emergency Medicine; PCP Internal Medicine
DX: J02.0 Streptococcal pharyngitis (principal)
CPT/HCPCS: 87880; 99281; 99283

== ENCOUNTER → 2020-06-03 11:25 | Outpatient (CLI) | payer OTHER, MEDICAID, SELFPAY ==
[2020-06-03 12:20] LABS: COVID19 -Nasal RAPID Negative (Negative)
== END ==
PROVIDERS: PCP Nurse Practitioner; Visit Provider Physician Assistant
DX: Z20.828 Contact with and (suspected) exposure to other viral communicable diseases (principal)
CPT/HCPCS: 87635

== ENCOUNTER → 2020-07-09 14:49 | Outpatient (CLI) | payer OTHER, MEDICAID, SELFPAY ==
[2020-07-03 11:41] VITALS: BMI 56.5
== END ==
PROVIDERS: PCP Nurse Practitioner; Visit Provider Nurse Practitioner
DX: R87.629 Unspecified abnormal cytological findings in specimens from vagina (principal)
CPT/HCPCS: 87070; 87077; 87205

== ENCOUNTER → 2020-10-17 13:54 | Outpatient (CLI) | payer OTHER, MEDICAID, SELFPAY ==
[2020-07-03 11:41] VITALS: BMI 56.5
[2020-10-17] MEDS: COVID-19 VACC #1, MRNA(MOD) 100 MCG/0.5 ML VIAL IM (14:03)
== END ==
PROVIDERS: PCP Nurse Practitioner; Visit Provider Internal Medicine
DX: Z23 Encounter for immunization (principal)
CPT/HCPCS: 0011A; 91301

== ENCOUNTER → 2020-11-15 13:59 | Outpatient (CLI) | payer OTHER, MEDICAID, SELFPAY ==
[2020-07-03 11:41] VITALS: BMI 56.5
[2020-11-15] MEDS: COVID-19 VACC #2, MRNA(MOD) 100 MCG/0.5 ML VIAL IM (14:07)
== END ==
PROVIDERS: PCP Nurse Practitioner; Visit Provider Internal Medicine
DX: Z23 Encounter for immunization (principal)
CPT/HCPCS: 0012A; 91301

== ENCOUNTER → 2021-02-27 13:38 | Outpatient (CLI) | payer OTHER, MEDICAID, SELFPAY ==
[2020-07-03 11:41] VITALS: BMI 56.5
[2021-02-27 14:03] LABS: Add Manual Diff / Slide Review NO; Basophils Absolute Auto 100 /uL (0-100); Basophils Percent Auto 0.8 % (0-2); Eosinophils Absolute Auto 200 /uL (0-450); Eosinophils Percent Auto 2.7 % (2-4); Hematocrit 39.9 % (36-46); Hemoglobin 13.1 g/dL (12.0-16.0); Lymphocytes Absolute Auto 2200 /uL (1100-4500); Lymphocytes Percent Auto 24.9 % (25-40); Mean Corpuscular HGB Conc 32.8 % (30-36); Mean Corpuscular Volume 82.3 fL (80-100); Monocytes Absolute Auto 400 /uL (0-900); Monocytes Percent Auto 4.9 % (3-14); Neutrophils Absolute Auto 5900 /uL (1500-7000); Neutrophils Percent Auto 66.7 % (50-75); Platelet Count 268 X10^3/uL (150-400); Red Blood Cell Count 4.85 X10^6/uL (4.0-5.2); Red Cell Distribution Width 15.2 % (11.6-14.8); White Blood Cell Count 8.8 X10^3/uL (4.5-11.0)
[2021-02-27 14:43] LABS: Free T4, Direct Thyroxine 1.24 ng/dL (0.78-2.19)
[2021-02-27 14:51] LABS: Alanine Aminotransferase 11 IU/L (<35); Albumin 4.2 g/dL (3.5-5.0); Albumin Globulin Ratio 1.5 (1.0-2.8); Alkaline Phosphatase 63 U/L (38-126); Aspartate Aminotransferase 21 IU/L (14-36); BUN Creatinine Ratio 17.1 (6-22); Bilirubin Total 0.5 mg/dL (0.2-1.3); Blood Urea Nitrogen 12 mg/dL (7-17); Calcium 9.5 mg/dL (8.4-10.2); Carbon Dioxide 27 mmol/L (22-32); Chloride 108 mmol/L (98-107); Cholesterol 176 mg/dL (140-199); Estimated Glomerular Filt Rate > 60.0 mL/min (>60); Globulin 2.8 g/dL (1.7-4.1); Glucose 89 mg/dL (70-100); HDL Cholesterol 44 mg/dL (40-60); HEMOLYSIS 28 (0-50); LDL Cholesterol Calculated 117 mg/dL (<100); Potassium 4.4 mmol/L (3.4-5.1); Sodium 142 mmol/L (137-145); Triglycerides 75 mg/dL (35-150)
[2021-02-27 14:57] LABS: Thyroid Stimulating Hormone 1.22 uIU/mL (0.47-4.68)
== END ==
PROVIDERS: PCP Nurse Practitioner; Referring Provider Nurse Practitioner; Visit Provider Nurse Practitioner
DX: F13.20 Sedative, hypnotic or anxiolytic dependence, uncomplicated (principal); F41.8 Other specified anxiety disorders; G47.00 Insomnia, unspecified; I10 Essential (primary) hypertension; Z00.00 Encounter for general adult medical examination without abnormal findings
CPT/HCPCS: 36415; 80053; 80061; 84439; 84443; 84481; 85025

== ENCOUNTER → 2024-06-09 11:33 | Outpatient (CLI) | payer OTHER, SELFPAY ==
[2020-07-03 11:41] VITALS: BMI 56.5
[2024-06-09 12:43] LABS: Influenza A - CEPHEID Flu A NEGATIVE (NEGATIVE); Influenza B - CEPHEID Flu B NEGATIVE (NEGATIVE); Respiratory Syncytial Virus Negative (Negative)
[2024-06-09 12:44] LABS: COVID-19 CEPHEID 4-PLEX PCR Negative (Negative)
== END ==
PROVIDERS: PCP Family Medicine; Visit Provider Family Medicine
DX: R09.81 Nasal congestion (principal); R05.9 Cough, unspecified
CPT/HCPCS: 87635; 87400; 87420; 0241U

== ENCOUNTER 2024-08-02 16:44 | Emergency (ER) | payer OTHER, SELFPAY ==
[2020-07-03 11:41] VITALS: BMI 56.5
[2024-08-02 16:48] VITALS: BP 124/68; PULSE 87; RESP 20; TEMP 37; O2SAT 97; BMI 50.9
[2024-08-02 17:16] LABS: Add Manual Diff / Slide Review NO; Basophils Absolute Auto 100 /uL (0-100); Basophils Percent Auto 0.6 % (0-2); Eosinophils Absolute Auto 300 /uL (0-450); Eosinophils Percent Auto 3.1 % (2-4); Hematocrit 35.7 % (36-46); Hemoglobin 11.6 g/dL (12.0-16.0); Lymphocytes Absolute Auto 2100 /uL (1100-4500); Lymphocytes Percent Auto 20.9 % (25-40); Mean Corpuscular HGB Conc 32.5 % (30-36); Mean Corpuscular Hemoglobin 25.1 PG (26-34); Mean Corpuscular Volume 77.4 fL (80-100); Monocytes Absolute Auto 500 /uL (0-900); Monocytes Percent Auto 5.3 % (3-14); Neutrophils Absolute Auto 7200 /uL (1500-7000); Neutrophils Percent Auto 70.1 % (50-75); Platelet Count 375 X10^3/uL (150-400); Red Blood Cell Count 4.61 X10^6/uL (4.0-5.2); Red Cell Distribution Width 17.3 % (11.6-14.8); White Blood Cell Count 10.2 X10^3/uL (4.5-11.0)
[2024-08-02 17:32] VITALS: BP 126/65; PULSE 89; O2SAT 98
[2024-08-02 17:33] VITALS: BP 120/67; PULSE 87; O2SAT 98
--- NOTE | 2024-08-02 17:35 | DI.US.S_ITS ---
PROCEDURE: US PELVIC COMPLETE INDICATIONS: vag bleeding TECHNIQUE: Real-time scanning was performed of the pelvic organs, with image documentation. Additional endovaginal scanning was necessary due to incomplete visualization of the adnexal and endometrial structures by transabdominal scanning. COMPARISON: [facility], , US PELVIC COMPLETE, 05/13/2018, 13:48. FINDINGS: Uterus: Uterus is normal in size at 8.4 x 4.2 x 6.7 cm. The myometrium is homogeneous. The endometrium is not well seen. Ovaries: Ovaries not visualized, possibly secondary to overlying bowel gas. Other: No pathologic free abdominal or pelvic fluid. IMPRESSION: Technically difficult study. The subject of heavy menstrual bleeding is not well addressed on the study secondary to poor visualization of the uterine architecture and endometrial stripe. If a quick answer is required for this question, would recommend CT abdomen and pelvis with contrast. Alternatively, nonemergent multiphase female pelvis protocol MRI would be helpful. We strive to produce accurate, complete, and clear reports of imaging services. To assist us in improving patient care, this report was composed using standard report templates and voice recognition software. Therefore, it may contain abnormal punctuation, insertions and/or omissions. Occasional wrong-word or sound-alike substitutions may occur. Though we review the report and make efforts to correct it, we do recommend that the report be read carefully in proper context to recognize any text inaccuracies. Dictated by: Jerad Palomino M.D. on 08/02/2024 at 18:59 Approved by: Jerad Palomino M.D. on 08/02/2024 at 19:03
[2024-08-02 17:45] LABS: BUN Creatinine Ratio 24.3 (6-22); Blood Urea Nitrogen 17 mg/dL (7-17); Carbon Dioxide 27 mmol/L (22-32); Chloride 104 mmol/L (98-107); Estimated Glomerular Filt Rate > 60 mL/min (>60); Glucose 123 mg/dL (70-100); HEMOLYSIS < 15 (0-50); Potassium 4.2 mmol/L (3.4-5.1); Sodium 138 mmol/L (137-145)
--- NOTE | 2024-08-02 17:46 | PC.NURSE ---
Pt reports hx of heavy menstruation for a long time with recent start of menstruation on Wednesday. Being followed by a provider who did imaging which shows potential mass. Plan is for eventual hysterectomy. States she passed out today. Saw spots and felt like might pass out then lowered herself to the ground and had brief LOC. Denies any injuries. Reports going through an overnight pad and super tampon every 2 hours. Brother at bedside. Call light within reach and encouraged to call for any needs.
--- NOTE | 2024-08-02 19:13 | PC.NURSE ---
Patient requested IV be removed as she was having pain to the IV site. urgent care technician removed it.
--- NOTE | 2024-08-02 19:14 | PC.NURSE ---
patient told this RADIO TELEVISION TECHNICAL DIRECTOR that the IV site was a throbbing pain and that she dislodged the IV while pushing herself up in bed This RADIO TELEVISION TECHNICAL DIRECTOR asked the patient if the nurse can come in and replace the IV and patient said No i just want this out of me. This RADIO TELEVISION TECHNICAL DIRECTOR notified BERNADINE Villarreal and was delegated to remove IV site due to patient not tolerating.
[2024-08-02 19:17] VITALS: BP 127/77; PULSE 80; O2SAT 98
[2024-08-02 19:19] VITALS: BP 127/77; PULSE 72; RESP 18; O2SAT 98
[2024-08-02 19:31] LABS: Bacteria Urine None Seen; Culture Indicated Urine Cult Not Indicated; RBC Urine 0-1/HPF (0-5/HPF); Squamous Epithelial Cell Urine 0-1 /HPF (0-5/HPF); Urine Volume 10mL (spun); WBC Urine 0-1/HPF (0-5/HPF)
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
[2024-08-02 20:38] VITALS: BP 124/81; PULSE 94; RESP 18; O2SAT 99
== END 2024-08-02 20:39 | disposition home or self-care (01) ==
PROVIDERS: Emergency Medicine; Emergency Provider Emergency Medicine; PCP Family Medicine
DX: R55 Syncope and collapse (principal); N92.0 Excessive and frequent menstruation with regular cycle; D50.0 Iron deficiency anemia secondary to blood loss (chronic); Z68.43 Body mass index [BMI] 50.0-59.9, adult
CPT/HCPCS: 76856; 80048; 81003; 81015; 81025; 85025; 86850; 86900; 86901; 99282; 99284

== ENCOUNTER 2024-12-04 10:40 | Emergency (ER) | payer OTHER, SELFPAY ==
[2020-07-03 11:41] VITALS: BMI 56.5
[2024-12-04 10:53] VITALS: BP 135/64; PULSE 86; RESP 15; TEMP 37; O2SAT 98; BMI 51.5
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
[2024-12-04] MEDS: FLUCONAZOLE 100 MG TABLET 150 MG PO (11:11)
== END 2024-12-04 12:10 | disposition home or self-care (01) ==
PROVIDERS: Emergency Provider Emergency Medicine; PCP Family Medicine
DX: B37.31 Acute candidiasis of vulva and vagina (principal)
CPT/HCPCS: 87210; 99283